=== PATIENT | male | born 1975 | race Caucasian/White ===

== ENCOUNTER 2017-06-30 09:04 | Observation (INO) | payer SELFPAY ==
[~2017-06-30] VITALS: Ht 185.4 cm; Wt 137.6 kg
[~2017-06-30 09:04] MED LIST: GLC/500 PO
[2017-06-30] MEDS ORDERED: ONDANSETRON INJ 2 MG/ML 2 ML VIAL IV STA (09:35)
[2017-06-30] MEDS ORDERED: MoRPHine SULFATE 4 MG/ML 1 ML CARP\\VIAL IV STA (09:35)
[2017-06-30] MEDS ORDERED: SODIUM CHLORIDE 0.9% 1000ML 1,000 ML IV STA ×2 (09:35)
[2017-06-30 09:50] LABS: URINE APPEARANCE CLEAR (CLEAR); URINE BILIRUBIN NEG (NEG); URINE COLOR YELLOW; URINE NITRITE NEG (NEG); URINE PH 5.5 (4.5-7.5); URINE SPECIFIC GRAVITY 1.034 (1.000-1.030); UROBILINOGEN NEG (NEG); ZZUR CULT IF INDIC CLEAN CATCH NO
[2017-06-30 09:53] LABS: MANUAL MICROSCOPIC REQUIRED? NO; REVIEW REQ? NO
[2017-06-30] MEDS ORDERED: PANTOprazole INJ 80 MG in DEXTROSE 5% 100ML IV SCH (10:00)
--- NOTE | 2017-06-30 10:04 | DIAGNOSTIC IMAGING REPORT ---
CHEST ONE VIEW PORTABLE CLINICAL HISTORY: abdominal pain COMPARISON STUDY: 08/18/2015 FINDINGS: The cardiac and mediastinal contours are normal. There is no evidence of focal pulmonary consolidation. There is no evidence of failure. No pleural effusions are visualized.[ No free intraperitoneal air is visualized. IMPRESSION: No active disease in the chest. Electronically signed by: Ta Mary M.D. 06/30/2017 10:03 AM Dictated Date/Time: 06/30/2017 10:02 AM
[2017-06-30 10:05] LABS: BASO % 0.7 %; BASO ABS # 0.06 K/uL (0-0.2); COMPLETE YES; EOS % 2.9 %; HEMATOCRIT 42.4 % (42-52); IG% 0.4 %; LYMPH % 23.1 %; LYMPH ABS # 2.09 K/uL (1.2-3.4); MEAN CELL VOLUME 88.1 fL (80-100); MEAN CORPUSCULAR HEMOGLOBIN 31.8 pg (25-34); MEAN CORPUSCULAR HGB CONC 36.1 g/dl (32-36); MEAN PLATELET VOLUME 9.4 fL (7.4-10.4); MONO % 10.3 %; NEUT % 62.6 %; PLATELET COUNT 312 K/uL (130-400); RED BLOOD COUNT 4.81 M/uL (4.7-6.1); WHITE BLOOD COUNT 9.05 K/uL (4.8-10.8)
[2017-06-30 10:13] LABS: PROTHROMBIN TIME (PATIENT) 10.7 SECONDS (9.0-12.0)
[2017-06-30] MEDS ORDERED: PANTOprazole INJ 40 MG in DEXTROSE 5% 100ML IV SCH (10:15)
[2017-06-30 10:34] LABS: ALB/GLOB RATIO 0.9 (0.9-2); BUN/CREATININE RATIO 18.9 (10-20); CALCIUM 9.3 mg/dl (8.5-10.1); CREATININE 0.81 mg/dl (0.60-1.40)
--- NOTE | 2017-06-30 10:35 | EMERGENCY ROOM VISIT NOTE ---
History First contact with patient: 09:14 Chief Complaint: VOMITING Stated Complaint: LETHARGIC, NAUSEA, VOMITING Nursing Triage Summary: Pt states that he feels that his whole body hurts and has been throwing up blood at times. Nauseated. This has been going on for a few months. Pt also states that he feels that he can not see that well. Hx of diabetes. History of Present Illness The patient is a 41 year old male who presents to the Emergency Room with complaints of abdominal pain, nausea, vomiting and diarrhea. The patient states that he has had trouble with rectal bleeding, vomiting, diarrhea and abdominal pain for the last several months. He states that it is much worse today. He states that he had an episode of hematemesis this morning. He states that he is also having diarrhea that is bloody. He reports diffuse abdominal pain and rates his discomfort 10/10. The patient has not been evaluated for this. He has not had a colonoscopy. He does have a family member with Crohn's disease. He denies any fevers. He denies any pain in his chest or trouble breathing. He denies any urinary symptoms. He is a diabetic. The patient also admits to very heavy alcohol use. He states he drinks daily. Review of Systems A 10 system review of systems was completed with positives and pertinent negatives listed in the HPI. Past Medical/Surgical History Medical Problems: (1) Diabetes (2) Rectal bleed Family History Patient reports no known family medical history. Social History Smoking Status: Never Smoker Drug Use: cocaine, other Marital Status: Housing Status: lives with family Occupation Status: employed Current/Historical Medications Scheduled Lisinopril (Prinivil), 5 MG PO DAILY Metformin Hcl (Glucophage), 1,000 MG PO BID Physical Exam Vital Signs Date Time Temp Pulse Resp B/P (MAP) Pulse Ox O2 Delivery O2 Flow Rate FiO2 06/30/17 15:15 77 18 136/87 98 Room Air 06/30/17 13:15 71 18 127/82 98 Room Air 06/30/17 11:52 86 20 157/99 98 Room Air 06/30/17 10:20 88 22 162/105 97 Room Air 06/30/17 09:11 36.9 93 22 168/107 97 Physical Exam VITALS: Vitals are noted on the nurse's note and reviewed by myself. Vital signs stable. The patient is afebrile. He is not hypotensive. GENERAL: This is a 41-year-old male, in no acute distress, nondiaphoretic, well- developed well-nourished. SKIN: The skin was without rashes, erythema, edema, or bruising. There is no tenting of the skin. Capillary reflex less than 2 seconds. HEAD: Normocephalic atraumatic. EARS: The external ears are normal in appearance. EYES: Pupils equal round and reactive to light and accommodation. Conjunctivae without injection, sclerae without icterus. Extraocular movements intact. NOSE: Patent, turbinates without inflammation or discharge. MOUTH: Mucous membranes moist. Tonsils are not enlarged. Pharynx without erythema or exudate. Uvula midline. Airway patent. Tongue does not deviate. NECK: Supple without nuchal rigidity. No lymphadenopathy. No thyromegaly. Cervical spine is nontender. No JVD. HEART: Regular rate and rhythm without murmurs gallops or rubs. LUNGS: Clear to auscultation bilaterally without wheezes, rales or rhonchi. No retractions or accessory muscle use. ABDOMEN: Positive bowel sounds x 4. Soft, moderate diffuse tenderness masses or organomegaly. RECTAL: There are no external hemorrhoids. The stool is brown but guaiac positive. MUSCULOSKELETAL: No muscle atrophy, erythema, or edema noted. Full range of motion in all extremities. Normal gait. Strength 5/5 throughout. NEURO: Patient was alert and oriented to person place and time. No focal neurological deficits. Medical Decision & Procedures ER Provider Diagnostic Interpretation: [~ rep ct add3]] CT SCAN OF THE ABDOMEN AND PELVIS WITH IV CONTRAST CLINICAL HISTORY: Generalized abdominal pain. Nausea and vomiting. Rectal bleeding. COMPARISON STUDY: Abdominal CT dated 09/16/2014. TECHNIQUE: Following the IV administration of 94 cc of Optiray 320, CT scan of the abdomen and pelvis is performed from the lung bases to the proximal femora. Images are reviewed in the axial, sagittal, and coronal planes. IV contrast was administered without complication. A dose lowering technique was utilized adhering to the principles of ALARA. CT DOSE: 1139.59 mGycm FINDINGS: Lung bases: The heart is top normal in size and without pericardial effusion. A fat-containing Bochdalek hernia is present at the left lung base. The lung bases are otherwise clear. There is a small hiatal hernia. Liver: The contrast-enhanced liver is enlarged, measuring 26.5 cm in length. The liver demonstrates diffusely diminished attenuation consistent with hepatic steatosis. There is no intrahepatic biliary ductal dilatation. The hepatic veins and portal veins are patent. Gallbladder: Surgically absent noting clips in the gallbladder fossa. Spleen: Normal in size and attenuation. Pancreas: Unremarkable. Adrenal glands: Unremarkable. Kidneys: The contrast enhanced kidneys are normal in size and without hydronephrosis. The kidneys enhance symmetrically. Abdominal vasculature: The abdominal aorta is normal in course and caliber. Bowel: The small bowel and colon are normal in course and caliber. The appendix is well-visualized and normal. Peritoneum: There is no intraperitoneal free air or abdominal ascites. There is a small fat-containing umbilical hernia. Lymphadenopathy: None. Pelvic viscera: The bladder, prostate, and seminal vesicles are normal as visualized. Skeletal structures: No lytic or blastic lesions are seen. IMPRESSION: 1. There are no acute infectious or inflammatory findings in the abdomen or pelvis. 2. Hepatomegaly and severe hepatic steatosis. CHEST ONE VIEW PORTABLE CLINICAL HISTORY: abdominal pain COMPARISON STUDY: 08/18/2015 FINDINGS: The cardiac and mediastinal contours are normal. There is no evidence of focal pulmonary consolidation. There is no evidence of failure. No pleural effusions are visualized.[ No free intraperitoneal air is visualized. IMPRESSION: No active disease in the chest. Laboratory Results 06/30/17 09:50 Red Blood Count 4.81, Mean Corpuscular Volume 88.1, Mean Corpuscular Hemoglobin 31.8, Mean Corpuscular Hemoglobin Concent 36.1, Mean Platelet Volume 9.4, Neutrophils (%) (Auto) 62.6, Lymphocytes (%) (Auto) 23.1, Monocytes (%) (Auto) 10.3, Eosinophils (%) (Auto) 2.9, Basophils (%) (Auto) 0.7, Neutrophils # (Auto ) 5.67, Lymphocytes # (Auto) 2.09, Monocytes # (Auto) 0.93, Eosinophils # (Auto ) 0.26, Basophils # (Auto) 0.06 06/30/17 09:50 Test 06/30/17 09:24 06/30/17 09:30 06/30/17 09:50 06/30/17 15:18 Bedside Glucose 295 mg/dl (70-99) Urine Color YELLOW Urine Appearance CLEAR (CLEAR) Urine pH 5.5 (4.5-7.5) Urine Specific [place] 1.034 (1.000-1.030) Urine Protein NEG (NEG) Urine Glucose (UA) 3+ (NEG) Urine Ketones NEG (NEG) Urine Occult Blood NEG (NEG) Urine Nitrite NEG (NEG) Urine Bilirubin NEG (NEG) Urine Urobilinogen NEG (NEG) Urine Leukocyte Esterase NEG (NEG) White Blood Count 9.05 K/uL (4.8-10.8) Red Blood Count 4.81 M/uL (4.7-6.1) Hemoglobin 15.3 g/dL (14.0-18.0) Hematocrit 42.4 % (42-52) Mean Corpuscular Volume 88.1 fL (80-100) Mean Corpuscular Hemoglobin 31.8 pg (25-34) Mean Corpuscular Hemoglobin Concent 36.1 g/dl (32-36) Platelet Count 312 K/uL (130-400) Mean Platelet Volume 9.4 fL (7.4-10.4) Neutrophils (%) (Auto) 62.6 % Lymphocytes (%) (Auto) 23.1 % Monocytes (%) (Auto) 10.3 % Eosinophils (%) (Auto) 2.9 % Basophils (%) (Auto) 0.7 % Neutrophils # (Auto) 5.67 K/uL (1.4-6.5) Lymphocytes # (Auto) 2.09 K/uL (1.2-3.4) Monocytes # (Auto) 0.93 K/uL (0.11-0.59) Eosinophils # (Auto) 0.26 K/uL (0-0.5) Basophils # (Auto) 0.06 K/uL (0-0.2) RDW Standard Deviation 39.0 fL (36.4-46.3) RDW Coefficient of Variation 12.2 % (11.5-14.5) Immature Granulocyte % (Auto) 0.4 % Immature Granulocyte # (Auto) 0.04 K/uL (0.00-0.02) Prothrombin Time 10.7 SECONDS (9.0-12.0) Prothromb Time International Ratio 1.0 (0.9-1.1) Activated Partial Thromboplast Time 26.3 SECONDS (21.0-31.0) Partial Thromboplastin Ratio 1.0 Anion Gap 10.0 mmol/L (3-11) Est Creatinine Clear Calc Drug Dose 168.2 ml/min Estimated GFR () 126.2 Estimated GFR (Non- 108.9 BUN/Creatinine Ratio 18.9 (10-20) Lactic Acid Level 2.0 mmol/L (0.4-2.0) Calcium Level 9.3 mg/dl (8.5-10.1) Total Bilirubin 0.4 mg/dl (0.2-1) Aspartate Amino Transf (AST/SGOT) 79 U/L (15-37) Alanine Aminotransferase (ALT/SGPT) 137 U/L (12-78) Alkaline Phosphatase 124 U/L (45-117) Total Protein 7.5 gm/dl (6.4-8.2) Albumin 3.6 gm/dl (3.4-5.0) Globulin 3.9 gm/dl (2.5-4.0) Albumin/Globulin Ratio 0.9 (0.9-2) Chemistry Specimen Hemolysis Medications Administered Medications (Trade) Dose Ordered Sig/Carine Route Start Time Stop Time Status Last Admin Dose Admin Sodium Chloride 1,000 ml @ 999 mls/hr Q1H1M STAT IV 06/30/17 09:35 06/30/17 10:35 DC 06/30/17 10:07 999 MLS/HR Morphine Sulfate (MoRPHine SULFATE INJ) 4 mg NOW STAT IV 06/30/17 09:35 06/30/17 09:39 DC 06/30/17 10:08 4 MG Sodium Chloride 1,000 ml @ 999 mls/hr Q1H1M STAT IV 06/30/17 09:35 06/30/17 10:35 DC 06/30/17 10:07 999 MLS/HR Ondansetron HCl (Zofran Inj) 4 mg NOW STAT IV 06/30/17 09:35 06/30/17 09:39 DC 06/30/17 10:04 4 MG Pantoprazole Sodium 80 mg/ Dextrose 120 ml @ 480 mls/hr 1000 IV 06/30/17 10:00 06/30/17 10:14 DC 06/30/17 10:11 480 MLS/HR Pantoprazole Sodium 40 mg/ Dextrose 100 ml @ 20 mls/hr Q5H IV 06/30/17 10:15 06/30/17 15:14 DC 06/30/17 10:11 20 MLS/HR Hydromorphone HCl (Dilaudid Inj) 1 mg NOW STAT IV 06/30/17 10:41 06/30/17 10:42 DC 06/30/17 10:59 1 MG Ondansetron HCl (Zofran Inj) 4 mg STK-MED ONCE .ROUTE 06/30/17 12:24 06/30/17 12:25 DC 06/30/17 12:29 4 MG Procedure The patient was monitored on a clinical research monitor. They maintained a normal sinus rhythm without ectopy. ED Course The patient was seen and examined. Previous visits were reviewed. The patient does not have a fever or leukocytosis. He is not anemic. He does not have any significant electrolyte abnormalities. Lactic acid is not elevated. Glucose is elevated at 295. He does have a history of diabetes. His transaminases are elevated. AST is 79, ALT 137 and alkaline phosphatase 124. INR is 1.0. Urinalysis reveals glucosuria. CT scan of the abdomen and pelvis is as above. The patient has hepatomegaly and severe hepatic steatosis The patient was given 4 mg IV morphine and 4 mg IV Zofran with no improvement in his pain He was then given 1 mg IV Dilaudid with improvement in his symptoms He was given Protonix bolus and drip The patient was seen and examined. Previous visits were reviewed. The patient is hemodynamically stable. The patient reports a episode of hematemesis this morning. He had one episode of bloody stool while in the emergency department. He did have guaiac positive stool on rectal examination. The patient also has severe upper abdominal pain, particularly left upper quadrant. The patient admits to drinking alcohol heavily. He does have hepatic steatosis and hepatomegaly as well as elevation in his liver enzymes. Given the patient's severe and persistent pain despite multiple doses of IV narcotics, GI bleeding, the patient would benefit from further evaluation and management in the hospital. The case was discussed with the [facility] hospitalist service and they will evaluate the patient. Medical Decision DIFFERENTIAL DIAGNOSIS: Hepatitis, cholecystitis, cholangitis, biliary colic, pancreatitis, pneumonia, subdiaphragmatic abscess, appendicitis, inguinal hernia , nephrolithiasis, inflammatory bowel disease, mesenteric adenitis, peptic ulcer disease, GERD, gastritis, pancreatitis, myocardial infarction, pericarditis, ruptured aortic aneurysm, appendicitis, gastroenteritis, bowel obstruction, splenic infarct, diverticulitis, mesenteric ischemia, metabolic, peritonitis, among others. Medication Reconcilliation Current Medication List: was personally reviewed by me Blood Pressure Screening Patient's blood pressure: Elevated blood pressure Blood pressure disposition: Elevated BP felt to be situational Impression Primary Impression: GI bleeding Additional Impressions: Upper abdominal pain Hepatic steatosis Hepatomegaly Departure Information Dispostion Admitted as an inpatient Referrals Roly Ramires, D.O.Int.Med. (PCP) Patient Instructions [facility] Problem Qualifiers
[2017-06-30] MEDS ORDERED: HYDROmorphone INJ 1 MG/ML SYR IV STA (10:41)
[2017-06-30] MEDS ORDERED: OPTIRAY 320 IV PRN (11:30)
[2017-06-30] MEDS ORDERED: LISI5TAB PO (11:44)
[2017-06-30] MEDS ORDERED: GLC/500 PO (11:46)
[2017-06-30] MEDS ORDERED: ONDANSETRON INJ 2 MG/ML 2 ML VIAL ONE (12:24)
--- NOTE | 2017-06-30 12:53 | DIAGNOSTIC IMAGING REPORT ---
CT SCAN OF THE ABDOMEN AND PELVIS WITH IV CONTRAST CLINICAL HISTORY: Generalized abdominal pain. Nausea and vomiting. Rectal bleeding. COMPARISON STUDY: Abdominal CT dated 09/16/2014. TECHNIQUE: Following the IV administration of 94 cc of Optiray 320, CT scan of the abdomen and pelvis is performed from the lung bases to the proximal femora. Images are reviewed in the axial, sagittal, and coronal planes. IV contrast was administered without complication. A dose lowering technique was utilized adhering to the principles of ALARA. CT DOSE: 1139.59 mGycm FINDINGS: Lung bases: The heart is top normal in size and without pericardial effusion. A fat-containing Bochdalek hernia is present at the left lung base. The lung bases are otherwise clear. There is a small hiatal hernia. Liver: The contrast-enhanced liver is enlarged, measuring 26.5 cm in length. The liver demonstrates diffusely diminished attenuation consistent with hepatic steatosis. There is no intrahepatic biliary ductal dilatation. The hepatic veins and portal veins are patent. Gallbladder: Surgically absent noting clips in the gallbladder fossa. Spleen: Normal in size and attenuation. Pancreas: Unremarkable. Adrenal glands: Unremarkable. Kidneys: The contrast enhanced kidneys are normal in size and without hydronephrosis. The kidneys enhance symmetrically. Abdominal vasculature: The abdominal aorta is normal in course and caliber. Bowel: The small bowel and colon are normal in course and caliber. The appendix is well-visualized and normal. Peritoneum: There is no intraperitoneal free air or abdominal ascites. There is a small fat-containing umbilical hernia. Lymphadenopathy: None. Pelvic viscera: The bladder, prostate, and seminal vesicles are normal as visualized. Skeletal structures: No lytic or blastic lesions are seen. IMPRESSION: 1. There are no acute infectious or inflammatory findings in the abdomen or pelvis. 2. Hepatomegaly and severe hepatic steatosis. Electronically signed by: Virgil Ortega M.D. 06/30/2017 12:52 PM Dictated Date/Time: 06/30/2017 12:48 PM
[2017-06-30] MEDS ORDERED: GLUCOSE 40% GEL 15 GM TUBE PO PRN (15:30)
[2017-06-30] MEDS ORDERED: GLUCOSE 10 TABS/TUBE PO PRN (15:30)
[2017-06-30] MEDS ORDERED: DEXTROSE 50% 50 ML SYR IV PRN (15:30)
[2017-06-30] MEDS ORDERED: ALUMINUM/MAGNESIUM/SIMETH (MAALOX MAX) 30 ML UDC PO PRN (15:30)
[2017-06-30] MEDS ORDERED: LORAZEPAM 2 MG/ML 1 ML VIAL IV PRN (15:30)
[2017-06-30] MEDS ORDERED: POLYETHYLENE (MIRALAX) 17 GM PACK PO PRN (15:30)
[2017-06-30] MEDS ORDERED: ONDANSETRON INJ 2 MG/ML 2 ML VIAL IV PRN (15:30)
[2017-06-30] MEDS ORDERED: MAGNESIUM HYDROXIDE SUSP 30 ML UDC PO PRN (15:30)
[2017-06-30] MEDS ORDERED: GLUCAGON FOR INJ 1 MG VIAL SQ PRN (15:30)
--- NOTE | 2017-06-30 15:53 | History and Physical ---
History & Physical Date & Time of Service: Jun 30, 2017 at 15:36 Chief Complaint: Lethargic, Nausea, Vomiting Primary Care Physician: Wyatt Ramires D.O.Int.Med. History of Present Illness Source: patient, clinic records, hospital records This is a 41 y/o male with a history of HTN, DM II and anxiety who presented to the ED on 06/30 with abdominal pain, nausea, vomiting, and rectal bleeding. The patient states that these symptoms have actually been going on for several months, but today the abdominal pain become very severe. He had originally complained of a diffuse abdominal pain, but currently he states that it is mostly in the LUQ. He describes it as a dull 7/10 pain at rest but becomes a sharp 10/10 pain with movement or palpation. His nausea is now resolved, although he has been having hematemesis for the last few weeks. This typically occurs in the morning. He has also had gross rectal bleeding for the last few months, again typically in the morning, although today it has persisted all day long. He complains of weakness and fatigue. He also notes a 20 pound weight loss over the last 4 months that is unintentional, although he has not been eating as much lately. The patient denies fevers, chills, sweats, chest pain, palpitations, claudication, cough, wheezing, shortness of breath, dysuria, hematuria, urinary retention, paralysis, motor weakness, numbness and tingling. Past Medical/Surgical History Medical Problems: (1) Diabetes mellitus type 2 Status: Chronic HTN Anxiety Family History Colon cancer Crohn's disease Diabetes mellitus Thyroid cancer Social History Smoking Status: Never Smoker Smokeless Tobacco Use: No Alcohol Use: heavy (3 pitches of beer and several shots of liquor a day) Drug Use: cocaine (quit 6 months ago) Marital Status: in relationship Housing status: lives with significant other Occupational Status: employed Immunizations History of Influenza Vaccine: No History of Tetanus Vaccine?: Yes History of Pneumococcal: No History of Hepatitis B Vaccine: Unknown Multi-Drug Resistant Organisms History of MDRO: No Allergies Coded Allergies: Penicillins (Verified Allergy, Intermediate, RASH, 06/30/17) Home Medications Scheduled Lisinopril (Prinivil), 5 MG PO DAILY Metformin Hcl (Glucophage), 1,000 MG PO BID Review of Systems Constitutional: + weight loss, + weakness, + fatigue, No fever, No chills, No sweats Eyes: + worsening of vision (blurry vision today), No eye pain, No diplopia ENT: No hearing loss, No sore throat, No trouble swallowing Respiratory: No cough, No wheezing, No shortness of breath Cardiovascular: No chest pain, No claudication Abdomen: + pain, + nausea, + vomiting, + GI bleeding, No diarrhea Musculoskeletal: No joint pain, No muscle pain, No calf pain Genitourinary - Male: No hematuria, No dysuria, No urinary retention Neurologic: No paralysis, No weakness, No numbness/tingling Integumentary: No rash, No itch, No color change Physical Exam Vital Signs Date Time Temp Pulse Resp B/P (MAP) Pulse Ox O2 Delivery O2 Flow Rate FiO2 06/30/17 15:15 77 18 136/87 98 Room Air 06/30/17 13:15 71 18 127/82 98 Room Air 06/30/17 11:52 86 20 157/99 98 Room Air 06/30/17 10:20 88 22 162/105 97 Room Air 06/30/17 09:11 36.9 93 22 168/107 97 General appearance: +Obese. Well-developed, well-nourished, no apparent distress Head: Normocephalic, atraumatic Eyes: Normal inspection, PERRL, EOMI ENT: Normal ENT inspection, hearing grossly normal, pharynx normal Neck: Supple, no JVD, trachea midline Respiratory/Chest: Lungs clear to auscultation, normal breath sounds, no respiratory distress Cardiovascular: Regular rate & rhythm, no gallop, no murmur Abdomen/GI: +LUQ and LLQ TTP. Normal bowel sounds, soft Extremities/Musculoskeletal: Normal inspection, no calf tenderness, no pedal edema Neurological/Psych: Alert, normal mood/affect, oriented x 3 Skin: Normal color, warm/dry, no rash Diagnostics Laboratory Results Results Past 24 Hours Test 06/30/17 09:24 06/30/17 09:30 06/30/17 09:50 Range/Units Bedside Glucose 295 70-99 mg/dl Urine Color YELLOW Urine Appearance CLEAR CLEAR Urine pH 5.5 4.5-7.5 Urine Specific Broadus 1.034 1.000-1.030 Urine Protein NEG NEG Urine Glucose (UA) 3+ NEG Urine Ketones NEG NEG Urine Occult Blood NEG NEG Urine Nitrite NEG NEG Urine Bilirubin NEG NEG Urine Urobilinogen NEG NEG Urine Leukocyte Esterase NEG NEG White Blood Count 9.05 4.8-10.8 K/uL Red Blood Count 4.81 4.7-6.1 M/uL Hemoglobin 15.3 14.0-18.0 g/dL Hematocrit 42.4 42-52 % Mean Corpuscular Volume 88.1 80-100 fL Mean Corpuscular Hemoglobin 31.8 25-34 pg Mean Corpuscular Hemoglobin Concent 36.1 32-36 g/dl Platelet Count 312 130-400 K/uL Mean Platelet Volume 9.4 7.4-10.4 fL Neutrophils (%) (Auto) 62.6 % Lymphocytes (%) (Auto) 23.1 % Monocytes (%) (Auto) 10.3 % Eosinophils (%) (Auto) 2.9 % Basophils (%) (Auto) 0.7 % Neutrophils # (Auto) 5.67 1.4-6.5 K/uL Lymphocytes # (Auto) 2.09 1.2-3.4 K/uL Monocytes # (Auto) 0.93 0.11-0.59 K/uL Eosinophils # (Auto) 0.26 0-0.5 K/uL Basophils # (Auto) 0.06 0-0.2 K/uL RDW Standard Deviation 39.0 36.4-46.3 fL RDW Coefficient of Variation 12.2 11.5-14.5 % Immature Granulocyte % (Auto) 0.4 % Immature Granulocyte # (Auto) 0.04 0.00-0.02 K/uL Prothrombin Time 10.7 9.0-12.0 SECONDS Prothromb Time International Ratio 1.0 0.9-1.1 Activated Partial Thromboplast Time 26.3 21.0-31.0 SECONDS Partial Thromboplastin Ratio 1.0 Sodium Level 135 136-145 mmol/L Potassium Level 4.0 3.5-5.1 mmol/L Chloride Level 100 98-107 mmol/L Carbon Dioxide Level 25 21-32 mmol/L Anion Gap 10.0 3-11 mmol/L Blood Urea Nitrogen 15 7-18 mg/dl Creatinine 0.81 0.60-1.40 mg/dl Est Creatinine Clear Calc Drug Dose 168.2 ml/min Estimated GFR () 126.2 Estimated GFR (Non- 108.9 BUN/Creatinine Ratio 18.9 10-20 Random Glucose 295 70-99 mg/dl Lactic Acid Level 2.0 0.4-2.0 mmol/L Calcium Level 9.3 8.5-10.1 mg/dl Total Bilirubin 0.4 0.2-1 mg/dl Aspartate Amino Transf (AST/SGOT) 79 15-37 U/L Alanine Aminotransferase (ALT/SGPT) 137 12-78 U/L Alkaline Phosphatase 124 45-117 U/L Total Protein 7.5 6.4-8.2 gm/dl Albumin 3.6 3.4-5.0 gm/dl Globulin 3.9 2.5-4.0 gm/dl Albumin/Globulin Ratio 0.9 0.9-2 Chemistry Specimen Hemolysis Diagnostic Radiology Reviewed the following studies and agree with interpretation as follows: Patient Name: AMADA JACOBSEN Unit Number: [id number] Dictated: 06/30/171247 Transcribed: 06/30/171247 EV Printed Date/Time: [~ rep prt dt]/[~ rep prt tm] [~ rep ct labl] - [~ rep ct ivnm] [facility] [place] [address] Dictated: 06/30/171247 Transcribed: 06/30/171247 EV Printed Date/Time: [~ rep prt dt]/[~ rep prt tm] [~ rep ct labl] - [~ rep ct ivnm] Patient: AMADA JACOBSEN Address1: [address] [place] [address] Rec: [id number] Address2: Acct ID: [id number] [facility] Zip: [place] [address] Date: 1975 Sex: M Room/Bed: Ref Phy: Wyatt Ramires D.ORocioInt.Med. SC: GURJIT Hodgson Phy: Report #: [id number] Donna Phy: Wyatt Ramires D.O.Int.Med. Test: APW Admit Phy: Eye Technician: KENZIE Interpreting Phy: Virgil Ortega M.D. Diagnosis: LETHARGIC, NAUSEA, VOMITING Ordering Phy: Mony Reyes PA-C Service Date: 06/30/17 Admit Date: 06/30/17 MNE: PWRSCRIBE CONF: DICTATED BY: Virgil Ortega M.D.]] CC: Gino Cox, Wyatt John D.ORocioInt.Med. Mony Reyes PA-C Endcc: [~ rep ct add3]] CT SCAN OF THE ABDOMEN AND PELVIS WITH IV CONTRAST CLINICAL HISTORY: Generalized abdominal pain. Nausea and vomiting. Rectal bleeding. COMPARISON STUDY: Abdominal CT dated 09/16/2014. TECHNIQUE: Following the IV administration of 94 cc of Optiray 320, CT scan of the abdomen and pelvis is performed from the lung bases to the proximal femora. Images are reviewed in the axial, sagittal, and coronal planes. IV contrast was administered without complication. A dose lowering technique was utilized adhering to the principles of ALARA. CT DOSE: 1139.59 mGycm FINDINGS: Lung bases: The heart is top normal in size and without pericardial effusion. A fat-containing Bochdalek hernia is present at the left lung base. The lung bases are otherwise clear. There is a small hiatal hernia. Liver: The contrast-enhanced liver is enlarged, measuring 26.5 cm in length. The liver demonstrates diffusely diminished attenuation consistent with hepatic steatosis. There is no intrahepatic biliary ductal dilatation. The hepatic veins and portal veins are patent. Gallbladder: Surgically absent noting clips in the gallbladder fossa. Spleen: Normal in size and attenuation. Pancreas: Unremarkable. Adrenal glands: Unremarkable. Kidneys: The contrast enhanced kidneys are normal in size and without hydronephrosis. The kidneys enhance symmetrically. Abdominal vasculature: The abdominal aorta is normal in course and caliber. Bowel: The small bowel and colon are normal in course and caliber. The appendix is well-visualized and normal. Peritoneum: There is no intraperitoneal free air or abdominal ascites. There is a small fat-containing umbilical hernia. Lymphadenopathy: None. Pelvic viscera: The bladder, prostate, and seminal vesicles are normal as visualized. Skeletal structures: No lytic or blastic lesions are seen. IMPRESSION: 1. There are no acute infectious or inflammatory findings in the abdomen or pelvis. 2. Hepatomegaly and severe hepatic steatosis. Electronically signed by: Virgil Ortega M.D. 06/30/2017 12:52 PM Dictated Date/Time: 06/30/2017 12:48 PM The status of this report is Signed. Draft = Not yet reviewed or approved by Radiologist. Signed = Reviewed and approved by Radiologist. <AttendingPhy></AttendingPhy> <FamilyPhy>Wyatt Ramires D.O.Int.Med.</ FamilyPhy> <PrimaryPhy>Wyatt Ramires D.O.Int.Med.</PrimaryPhy> <UnitNumber> [id number]</UnitNumber> <VisitNumber>[id number]</VisitNumber> <PatientName> SUE JACOBSENIFFTAISHA SCHNEIDER</PatientName> <DateOfBirth>1975</DateOfBirth> < Location>[facility]</Location> <ServiceDate>06/30/17</ServiceDate> <MNE>ESINDI</MNE> <OrderingPhy>Mony Reyes PA-C</OrderingPhy> <OrderingPhyMNE>f rep ord dr medina</OrderingPhyMNE> <DictatingPhyMNE>f rep dict dr medina</DictatingPhyMNE> < CCListMNE>f rep ct mne</CCListMNE> <AdmittingPhyMNE>f pt admit dr medina</ AdmittingPhyMNE> <AttendingPhyMNE>f pt attend dr medina</AttendingPhyMNE> <ConsultingPhyMNE>f pt consult dr medina</ConsultingPhyMNE> <FamilyPhyMNE>f pt fam dr medina</FamilyPhyMNE> <OtherPhyMNE>f pt other dr medina</OtherPhyMNE> < PrimaryPhyMNE>f pt prim care dr medina</PrimaryPhyMNE> <ReferringPhyMNE>f pt referring dr medina</ReferringPhyMNE> Patient Name: AMADA JACOBSEN Unit Number: [id number] Dictated: 06/30/17 1002 Transcribed: 06/30/17 1002 ARG Printed Date/Time: [~ rep prt dt]/[~ rep prt tm] [~ rep ct labl] - [~ rep ct ivnm] [facility] [place] [address] Dictated: 06/30/17 1002 Transcribed: 06/30/17 1002 ARG Printed Date/Time: [~ rep prt dt]/[~ rep prt tm] [~ rep ct labl] - [~ rep ct ivnm] Patient: AMADA JACOBSEN Address1: [address] [place] [address] Rec: [id number] Address2: Acct ID: [id number] [facility] Zip: [place] [address] Date: 1975 Sex: M Room/Bed: Ref Phy: Wyatt Ramires D.O.Int.Med. SC: GURJIT Hodgsno Phy: Report #: [id number] Donna Phy: Wyatt Ramires D.O.Int.Med. Test: CXR1P Admit Phy: Eye Technician: AMINTA Interpreting Phy: Ta Mary M.D. Diagnosis: LETHARGIC, NAUSEA, VOMITING Ordering Phy: Mony Reyes PA-C Service Date: 06/30/17 Admit Date: 06/30/17 MNE: PWRSCRIBE CONF: DICTATED BY: Ta Mary M.D.]] CC: Gino Cox, Wyatt John D.O.Int.MedMony Fernandez PA-C Endcc: [~ rep ct add3]] CHEST ONE VIEW PORTABLE CLINICAL HISTORY: abdominal pain COMPARISON STUDY: 08/18/2015 FINDINGS: The cardiac and mediastinal contours are normal. There is no evidence of focal pulmonary consolidation. There is no evidence of failure. No pleural effusions are visualized.[ No free intraperitoneal air is visualized. IMPRESSION: No active disease in the chest. Electronically signed by: Ta Mary M.D. 06/30/2017 10:03 AM Dictated Date/Time: 06/30/2017 10:02 AM The status of this report is Signed. Draft = Not yet reviewed or approved by Radiologist. Signed = Reviewed and approved by Radiologist. <AttendingPhy></AttendingPhy> <FamilyPhy>Wyatt Ramires D.ORocioInt.Med.</ FamilyPhy> <PrimaryPhy>Wyatt Ramires D.O.Int.Med.</PrimaryPhy> <UnitNumber> [id number]</UnitNumber> <VisitNumber>[id number]</VisitNumber> <PatientName> AMADA JACOBSEN WYATT</PatientName> <DateOfBirth>1975</DateOfBirth> < Location>[facility]</Location> <ServiceDate>06/30/17</ServiceDate> <MNE>ESINDI</MNE> <OrderingPhy>Mony Reyes PA-C</OrderingPhy> <OrderingPhyMNE>f rep ord dr medina</OrderingPhyMNE> <DictatingPhyMNE>f rep dict dr medina</DictatingPhyMNE> < CCListMNE>f rep ct mne</CCListMNE> <AdmittingPhyMNE>f pt admit dr medina</ AdmittingPhyMNE> <AttendingPhyMNE>f pt attend dr medina</AttendingPhyMNE> <ConsultingPhyMNE>f pt consult dr medina</ConsultingPhyMNE> <FamilyPhyMNE>f pt fam dr medina</FamilyPhyMNE> <OtherPhyMNE>f pt other dr medina</OtherPhyMNE> < PrimaryPhyMNE>f pt prim care dr medina</PrimaryPhyMNE> <ReferringPhyMNE>f pt referring dr medina</ReferringPhyMNE> Impression Assessment and Plan 41 y/o male with a history of HTN, DM II and anxiety who presented to the ED on 06/30 with abdominal pain, nausea, vomiting, and rectal bleeding. Pt arrived to ED afebrile, VSS. Labs grossly unremarkable. Hgb 15. Abdominal pain still uncontrolled. Abdomen/pelvis CT shows fatty liver, otherwise unremarkable. CXR no acute disease. Pt given IV pain control, Zofran, Protonix and IVF in ED. GI bleed, uncontrolled abdominal pain -Admit to telemetry for observation -Consult GI, appreciate recs -NPO. Possible colonoscopy and EGD tomorrow due to hematemesis and rectal bleeding -Morphine 4 mg IV q2h prn pain -Zofran 4 mg IV q6h prn nausea -IVF with NSS at 125 cc/hr -Protonix 40 mg IV BID as hgb stable and no severe hemorrhaging Alcoholism -Alcohol withdrawal protocol -Ativan IV prn per protocol -Librium 25 mg PO TID scheduled HTN--stable -Continue lisinopril 5 mg PO qd DM II--last HgbA1c 7.1 in 2014 -Hold metformin -Insulin sliding scale -Check BSGs q ac and qhs -Recheck HgbA1c -Sugars nearly 300 on arrival. Pt will need to f/u with PCP regarding changing home regimen DVT prophylaxis -Hold off chemical prophylaxis due to bleeding -LUAN vidal and SCDs Code Status -Level I, FULL RESUSCITATION STATUS I agree with PA assessment and plan and have seen and examined pt myself VSS Labs reviewed Keep NPO Will like need endoscopy at this time Counseled on alcohol cessation LFTs noted to be elev Alcohol withdrawal protocol in place Level of Care Telemetry Resuscitation Status FULL RESUSCITATION VTE Prophylaxis VTE Risk Assessment Done? Y/N: Yes Risk Level: Moderate Given or contraindicated: T.E.D. Stockings, SCD's
[2017-06-30] MEDS ORDERED: IV FLUIDS COMPLETED PRN (16:30)
[2017-06-30] MEDS: MoRPHine SULFATE 4 MG/ML 1 ML CARP\\VIAL IV PRN ×2 (16:43→21:13)
[2017-06-30] MEDS: SODIUM CHLORIDE 0.9% 1000ML 1,000 ML IV SCH (17:10)
[2017-06-30 17:39] VITALS: BP 147/90; PULSE 72; TEMP 36.4; O2SAT 98
[2017-06-30 17:53] VITALS: BP 147/90; PULSE 72; TEMP 36.4; O2SAT 98; Ht 185.4 cm; Wt 137.6 kg
[2017-06-30] MEDS: INSULIN ASPART 100 UNITS/ML 3 ML PEN SC SCH ×2 (18:25→21:00)
[2017-06-30] MEDS: PANTOprazole INJ 40 MG in SYRINGE 0 ML IV SCH (19:39)
[2017-06-30] MEDS: ACETAMINOPHEN 325 MG TAB PO PRN (19:56)
[2017-06-30] MEDS ORDERED: INFLUENZA ADMINISTRATION CHARGE ONE (20:00)
[2017-06-30] MEDS ORDERED: PNEUMOCOCCAL POLYSACCHARIDES 25 MCG/0.5 ML VIAL/SYR IM. ONE (20:00)
[2017-06-30] MEDS ORDERED: INFLUENZA VIRUS QUAD VACCINE 0.5 ML SYR IM. ONE (20:00)
[2017-06-30] MEDS ORDERED: PNEUMOCOCCAL ADMINISTRATION CHARGE ONE (20:00)
[2017-06-30 20:34] VITALS: BP 131/86; PULSE 67; TEMP 36.3; O2SAT 97
[2017-06-30 20:34] LABS: BENZODIAZEPINE, URINE NEG (NEG); COCAINE,URINE NEG (NEG); PHENCYCLIDINE, URINE NEG (NEG)
[2017-06-30] MEDS: CHLORDIAZEPOXIDE 25 MG CAP PO SCH (21:12)
[2017-07-01] VITALS: BP 117/74; PULSE 74; TEMP 36.7; O2SAT 94
[2017-07-01] MEDS: SODIUM CHLORIDE 0.9% 1000ML 1,000 ML IV SCH ×2 (02:25→09:24)
[2017-07-01 04:00] VITALS: BP 131/89; PULSE 72; TEMP 36.4; O2SAT 94
[2017-07-01 06:11] LABS: ESTIMATED AVERAGE GLUCOSE 197 mg/dl; HA1C FLAG Normal (Normal)
[2017-07-01 06:19] LABS: MEAN CELL VOLUME 89.7 fL (80-100); MEAN CORPUSCULAR HEMOGLOBIN 30.9 pg (25-34); MEAN CORPUSCULAR HGB CONC 34.4 g/dl (32-36); MEAN PLATELET VOLUME 9.4 fL (7.4-10.4); PLATELET COUNT 274 K/uL (130-400); RED BLOOD COUNT 4.57 M/uL (4.7-6.1); WHITE BLOOD COUNT 8.28 K/uL (4.8-10.8)
[2017-07-01 06:51] LABS: BUN/CREATININE RATIO 18.6 (10-20); CREATININE 0.69 mg/dl (0.60-1.40); POTASSIUM 3.8 mmol/L (3.5-5.1)
[2017-07-01] MEDS: INSULIN ASPART 100 UNITS/ML 3 ML PEN SC SCH ×3 (07:00→16:39)
[2017-07-01 07:17] VITALS: BP 164/97; PULSE 81; TEMP 36.7; O2SAT 96
[2017-07-01] MEDS ORDERED: LISINOPRIL 5 MG TAB PO SCH (09:00)
[2017-07-01] MEDS: MoRPHine SULFATE 4 MG/ML 1 ML CARP\\VIAL IV PRN (09:20)
[2017-07-01] MEDS: PANTOprazole INJ 40 MG in SYRINGE 0 ML IV SCH (09:24)
[2017-07-01] MEDS: CHLORDIAZEPOXIDE 25 MG CAP PO SCH ×2 (09:30→16:05)
[2017-07-01 11:24] VITALS: BP 114/72; PULSE 73; TEMP 36.6; O2SAT 93
[2017-07-01] MEDS ORDERED: VLTG EXT (14:30)
[2017-07-01] MEDS ORDERED: MELO7.5T6 PO (14:30)
--- NOTE | 2017-07-01 14:43 | Discharge Instructions ---
Discharge Instructions Date of Service Jul 01, 2017. Admission Reason for Admission: Rectal Bleed,Sudden Onset Of Severe Abd Pain Discharge Discharge Diagnosis / Problem: GI bleeding, abdominal pain (see below) Discharge Goals Goal(s): Diagnostic testing Activity Recommendations Activity Limitations: resume your previous activity . Instructions / Follow-Up Instructions / Follow-Up GI bleeding -fortunately you've shown no serious amount of blood loss, and your vital signs have been totally stable while you've been here -we do still need to work up further the source for bleeding, but since you've not shown anything worrisome, it's totally safe to work this up further as an outpatient -Dr Joseph has informed the office to call you to set up times for an EGD ( upper endoscopy to look at stomach and the top of the small intestine) and colonoscopy (lower scope to evaluate the colon for source of bleeding) abdominal pain -this appears to have been rib muscle (and probably upper abdominal muscle) strain from the force of vomiting -this will likely take a little while to calm down -to get it better faster, we recommend the following: -do stretches, deep breathing, and raising arms up/back to stretch out the area -use the voltaren (diclofenac) gel four times a day across the painful area -- while it may take a day or two to "kick in" it typically helps a lot, and has nearly no whole body side effects -use the meloxicam (mobic) if needed for severe pain - it is an anti- inflammatory so if there's a stomach ulcer that is the source of bleeding it could exacerbate things some, but since there was no serious amount of bleeding it's both unlikely that a stomach ulcer will be the source and unlikely that a few doses of meloxicam will truly impact things in a negative way. that said, to be on the safe side , use it sparingly fatty liver -consider this a "pre-cirrhosis" condition - but fortunately one that your liver should be able to entirely recover from. the main factor driving this is going to be the drinking. in a secondary way, diabetes and cholesterol issues can do this, but the drinking is likely the main driving factor for the diabetes , so it's quite likely that the two go [id number] -with no alcohol whatsoever, it's quite likely this will be "back to normal" or awfully close to normal in ~3-4 months --> we'd recommend follow up liver enzyme labs and a follow up liver imaging test (ultrasound is usually best when just looking at liver for accuracy and no radiation exposure) in about 4 months uncontrolled type 2 diabetes -your A1c was 8.5% -as we discussed, "high sugars clog arteries" and the higher your sugars are, and the longer they run high, the more you're clogging up blood vessels that you can't get back. -because the main alcohol you would drink is beer, and because beer is so loaded with carbohydrates, it's actually quite likely that getting rid of the beer will not only help your liver heal, but is quite likely to make you "less diabetic" -otherwise, with other foods, a useful tool is to check sugars about 2 hours after eating. typically if it is a food that is not going to make your diabetes worse/clog arteries from a high sugar mechanism, etc, then you won't see a sugar reading above ~150; therefore when you eat things that do jump your sugar higher, it will teach you that those foods are causing you problems and driving your diabetes -- and avoiding them can not only protect your blood vessels but also make you "less diabetic" over time. one of the greatest things to see clinically as a family doc is when someone starts to eliminate the simple, starchy, sugary carbs and regresses their diabetes, or even "puts it in remission" -- with all the weight you've previously lost, it sounds like you're well on your way to doing this, so avoiding the beer might be the next big step in that direction! Current Hospital Diet Patient's current hospital diet: Regular Diet Discharge Diet Recommended Diet: Regular Diet (keep working to reduce simple/sugary/starchy carbs to continue to regress your diabetes) Pending Studies Studies pending at discharge: no Laboratory Results Hemoglobin A1c Test 06/30/17 16:36 Range/Units Estimated Average Glucose 197 mg/dl Hemoglobin A1c 8.5 H 4.5-5.6 % Medical Emergencies . Who to Call and When: Medical Emergencies: If at any time you feel your situation is an emergency, please call 911 immediately. . Non-Emergent Contact Non-Emergency issues call your: Primary Care Provider, Coal Weigher . . "Provider Documentation" section prepared by Gino Palacio. . VTE Core Measure Inpt VTE Proph given/why not?: Kurt Parkinson, FAZAL's
[2017-07-01 15:23] VITALS: BP 118/74; TEMP 36.8; O2SAT 94
[2017-07-01] MEDS: ACETAMINOPHEN 325 MG TAB PO PRN (16:05)
--- NOTE | 2017-07-01 16:54 | GASTROINTESTINAL CONSULTATION ---
DATE OF CONSULTATION: 07/01/2017 REFERRING PHYSICIAN: Dr. Palacio. I was asked by Dr. Palacio to consult on this gentleman for evaluation of some GI bleeding and abdominal pain. HISTORY OF PRESENT ILLNESS: The patient is a 41-year-old who has a history of hypertension and diabetes who presented to the Emergency Room because he had a bout of nausea and vomiting, had a little bit of blood in his vomitus. He also describes a long history of occasional red rectal bleeding. This has been going on for a while. He denies any tenesmus. He denies any weight loss. He has not had any increase in his rectal bleeding. He does drink rather regularly and sometimes in excess. It is unclear whether his spell of nausea and vomiting was related to drinking in excess or GI illness. He denies any significant aspirin use. He has lost about 20 pounds; however, he has been trying to lose weight. He has no dysphagia, but he does have a lot of daily heartburn. PAST MEDICAL HISTORY: I reviewed his medical records and past medical history and his past medical history is significant for diabetes, hypertension and some anxiety. FAMILY HISTORY: He has a family history of colon cancer. SOCIAL HISTORY: Significant for daily alcohol use, sometimes excessive. ALLERGIES: HE STATES HE IS ALLERGIC TO PENICILLIN. OUTPATIENT MEDICATIONS: Include Glucophage and Prinivil. REVIEW OF SYSTEMS: As above, otherwise he denies any fever, chills, sweats. He denies any seizure activity. He denies any change in mood. He has had no productive cough. He has had no change in vision or hearing. He denies any joint swelling or pains. He denies any bruising. He denies any pruritus, icterus or jaundice. He has had no dysuria or polyuria. He denies any heat or cold intolerance. He has had no myalgias. PHYSICAL EXAMINATION: GENERAL: Reveals a pleasant gentleman lying comfortably in bed. VITAL SIGNS: Recent temperature of 36.6, pulse of 73, BP of 114/72. SKIN: Anicteric. HEENT: Eyes show anicteric sclerae. Mouth clear of lesions. NECK: Supple. CHEST: Clear. HEART: Regular rate and rhythm. ABDOMEN: Obese but benign. No masses or rebound tenderness. EXTREMITIES: Warm with good distal pulses. No edema. NEUROLOGIC: He is grossly intact. Alert and oriented x3. CT of the abdomen and pelvis revealed hepatic steatosis but otherwise no acute findings. Liver enzymes show an AST of 79, ALT of 137, alk phos of 124, normal bilirubin and his hemoglobin has been stable at 14. IMPRESSION: A 41-year-old gentleman with fatty liver, most likely from being overweight and alcohol abuse. As far as this is concerned, he needs to lose weight and cut back significantly on alcohol use. As far as his occasional rectal bleeding is concerned and his chronic heartburn, I recommend we set him up for outpatient bidirectional endoscopy. This would rule out sinister pathology such as Beckett's esophagus and colon pathology. The rectal bleeding is most likely from outlet bleeding. He is agreeable with this plan. I will arrange for this as an outpatient. Thank you for this consult. He can eat and be discharged. REGIS
[2017-07-01 17:10] VITALS: BP 118/74; PULSE 73; TEMP 36.8; O2SAT 94
--- NOTE | 2017-07-01 17:45 | Discharge Summary ---
Discharge Summary Date of Service Jul 01, 2017. Discharge Summary Admission Date: Jun 30, 2017 at 15:35 Discharge Date: Jul 01, 2017 Discharge Disposition: Home Principal Diagnosis: GI bleeding (stable) fatty liver, uncontrolled DM Immunizations: Have You Had Influenza Vaccine: No History of Tetanus Vaccine?: Yes History of Pneumococcal: No History of Hepatitis B Vaccine: Unknown Procedures: for EGD and colo in near future as outpt, but since so stable, set up for home with this [~ rep ct add3]] CT SCAN OF THE ABDOMEN AND PELVIS WITH IV CONTRAST CLINICAL HISTORY: Generalized abdominal pain. Nausea and vomiting. Rectal bleeding. COMPARISON STUDY: Abdominal CT dated 09/16/2014. TECHNIQUE: Following the IV administration of 94 cc of Optiray 320, CT scan of the abdomen and pelvis is performed from the lung bases to the proximal femora. Images are reviewed in the axial, sagittal, and coronal planes. IV contrast was administered without complication. A dose lowering technique was utilized adhering to the principles of ALARA. CT DOSE: 1139.59 mGycm FINDINGS: Lung bases: The heart is top normal in size and without pericardial effusion. A fat-containing Bochdalek hernia is present at the left lung base. The lung bases are otherwise clear. There is a small hiatal hernia. Liver: The contrast-enhanced liver is enlarged, measuring 26.5 cm in length. The liver demonstrates diffusely diminished attenuation consistent with hepatic steatosis. There is no intrahepatic biliary ductal dilatation. The hepatic veins and portal veins are patent. Gallbladder: Surgically absent noting clips in the gallbladder fossa. Spleen: Normal in size and attenuation. Pancreas: Unremarkable. Adrenal glands: Unremarkable. Kidneys: The contrast enhanced kidneys are normal in size and without hydronephrosis. The kidneys enhance symmetrically. Abdominal vasculature: The abdominal aorta is normal in course and caliber. Bowel: The small bowel and colon are normal in course and caliber. The appendix is well-visualized and normal. Peritoneum: There is no intraperitoneal free air or abdominal ascites. There is a small fat-containing umbilical hernia. Lymphadenopathy: None. Pelvic viscera: The bladder, prostate, and seminal vesicles are normal as visualized. Skeletal structures: No lytic or blastic lesions are seen. IMPRESSION: 1. There are no acute infectious or inflammatory findings in the abdomen or pelvis. 2. Hepatomegaly and severe hepatic steatosis. Electronically signed by: Virgil Ortega M.D. 06/30/2017 12:52 PM Dictated Date/Time: 06/30/2017 12:48 PM Last 24 Hours Test 06/30/17 18:23 06/30/17 19:45 06/30/17 21:08 07/01/17 05:20 Bedside Glucose 195 mg/dl 172 mg/dl Urine Opiates Screen POS Urine Methadone, Qualitative NEG Urine Barbiturates NEG Urine Phencyclidine (PCP) Level NEG Ur Amphetamine/Methamphetamine NEG MDMA (Ecstasy) Screen NEG Urine Benzodiazepines Screen NEG Urine Cocaine Metabolite NEG Urine Marijuana (THC) NEG White Blood Count 8.28 K/uL Red Blood Count 4.57 M/uL Hemoglobin 14.1 g/dL Hematocrit 41.0 % Mean Corpuscular Volume 89.7 fL Mean Corpuscular Hemoglobin 30.9 pg Mean Corpuscular Hemoglobin Concent 34.4 g/dl RDW Standard Deviation 40.0 fL RDW Coefficient of Variation 12.2 % Platelet Count 274 K/uL Mean Platelet Volume 9.4 fL Sodium Level 140 mmol/L Potassium Level 3.8 mmol/L Chloride Level 104 mmol/L Carbon Dioxide Level 30 mmol/L Anion Gap 6.0 mmol/L Blood Urea Nitrogen 13 mg/dl Creatinine 0.69 mg/dl Est Creatinine Clear Calc Drug Dose 201.0 ml/min Estimated GFR () 134.8 Estimated GFR (Non- 116.3 BUN/Creatinine Ratio 18.6 Random Glucose 195 mg/dl Calcium Level 8.0 mg/dl Test 07/01/17 06:37 07/01/17 11:00 07/01/17 16:05 Bedside Glucose 184 mg/dl 215 mg/dl 241 mg/dl CHEST ONE VIEW PORTABLE CLINICAL HISTORY: abdominal pain COMPARISON STUDY: 08/18/2015 FINDINGS: The cardiac and mediastinal contours are normal. There is no evidence of focal pulmonary consolidation. There is no evidence of failure. No pleural effusions are visualized.[ No free intraperitoneal air is visualized. IMPRESSION: No active disease in the chest. Electronically signed by: Ta Mary M.D. 06/30/2017 10:03 AM Dictated Date/Time: 06/30/2017 10:02 AM Consultations: GI Medication Reconciliation New Medications: Diclofenac Sod (Voltaren) 100 Appln/100 Gm Gel 1 GM EXT QID, #100 GM Meloxicam (Mobic) 7.5 Mg Tab 1 TAB PO BID PRN for Pain for 30 Days, #15 TAB 2 Refills Continued Medications: Lisinopril (Prinivil) 5 Mg Tab 5 MG PO DAILY, TAB Metformin Hcl (Glucophage) 500 Mg Tab 1000 MG PO BID, TAB Discharge Exam Physical Exam: General Appearance: no apparent distress Eyes: EOMI ENT: hearing grossly normal Neck: trachea midline Respiratory/Chest: no respiratory distress, no accessory muscle use, + pertinent finding (msk/ost - L sided lower rib cage high tone/tender/decreased ROM - balanced ligamentous tension - improved tissue texture some; OMT directly and reliably reproduced his pain - pt tolerated well) Abdomen / GI: non tender, soft Extremities: normal inspection 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 given upper abdominal pain is actually muscular and he was able to eat well, unlikely UGI source. for EGD as outpt due to risk and EtOH abuse, but most likely colo will have yield on source. -stable for home, EGD and colo as outpt in near future rib pain / rib somatic dysfunction -appears to be pain due to strain from vomiting -OMT as above -voltaren gel QID, stretches discussed -systemic NSAID short term - since will use meloxicam and very short term, doubt harms/problems from any possible (unlikely) UGI source; with liver disease and EtOH abuse safer than APAP or narcotics fatty liver -EtOH > uncontrolled DM with elements of both -notes that he's going to totally stop drinking -CMP and RUQ US in ~ 4 months -discussed given severe EtOH fatty liver, basically amounts to a "pre-cirrhosis " state if no lifestyle changes made uncontrolled DM -A1c 8.5 -stopping beer should help - drank often 3 pitchers at a time - high carb load likely driving sugar. discussed critical role of lifestyle hypocalcemia -?fluid shifting -consider outpt vitamin D level stable for home Total Time Spent: Greater than 30 minutes This includes examination of the patient, discharge planning, medication reconciliation, and communication with other providers. Discharge Instructions Please refer to the electronic Patient Visit Report (Discharge Instructions) for additional information.
[2017-07-02 22:54] LABS: COD UR NEGATIVE NG/ML (CUTOFF=50); HYDROCOD UR NEGATIVE NG/ML (CUTOFF=50); HYDROMOR UR 311 NG/ML (CUTOFF=50); MORPHINE UR 3220 NG/ML (CUTOFF=50); NORHYDROCODONE CONF UR NEGATIVE NG/ML (CUTOFF=50); OXYMORPH UR NEGATIVE NG/ML (CUTOFF=50)
== END 2017-07-01 17:35 | disposition home or self-care (01) ==
LOC: C.EDB 09:05 → C.2T 15:35 → ENRESERV 16:00
PROVIDERS: ADMIT Hospitalist; ATTEND Family Medicine
DX: K92.2 Gastrointestinal hemorrhage, unspecified (principal); R07.81 Pleurodynia; E11.65 Type 2 diabetes mellitus with hyperglycemia; I10 Essential (primary) hypertension; K76.0 Fatty (change of) liver, not elsewhere classified; R16.0 Hepatomegaly, not elsewhere classified; E83.51 Hypocalcemia; F41.9 Anxiety disorder, unspecified; Z79.84 Long term (current) use of oral hypoglycemic drugs; Z79.899 Other long term (current) drug therapy

== ENCOUNTER 2017-07-03 11:48 | Emergency (ER) | payer SELFPAY ==
[~2017-07-03 11:48] MED LIST changes: +LISI5TAB PO; +MELO7.5T6 PO; +VLTG EXT
[2017-07-03 12:00] VITALS: TEMP 37.3
--- NOTE | 2017-07-03 12:27 | EMERGENCY ROOM VISIT NOTE ---
History Report prepared by Fidel: Hernandez Clark Under the Supervision of: Dr. Jean Yi D.O. First contact with patient: 12:17 Chief Complaint: OTHER COMPLAINT Stated Complaint: ANXIETY,DEPRESSION,ALCOHOL WITHDRAWAL History of Present Illness The patient is a 41 year old male who presents to the Emergency Room with complaints of alcohol withdrawal that began 3 days ago. He was treated as and inpatient 3 days ago and was released from the hospital yesterday for hematemesis, hematochezia, abdominal pain, and his diabetes. During his hospital stay, he became slightly agitated and given Librium. He was diagnosed with fatty liver and scheduled to have a colonoscopy/ endoscopy in two weeks. The patient is an alcoholic and states that he drinks 3-4 pitchers and 3-4 shots every single day. When at home, his fiance was worried because he was still agitated and thought he should still be on Librium. The last time he drank alcohol was three days ago. She called his PCP, and his PCP was worried about withdrawal and told her that he needs to "get to the hospital, this can kill you." He is currently anxious with some mild abdominal pain, but complaining of no other symptoms. Source of History: patient Onset: 3 days ago Position: other (global) Symptom Intensity: moderate Quality: other (Alcohol Withdrawal) Timing: constant Associated Symptoms: + abdominal pain, No fevers, No chills, No headache, No diaphoresis, No chest pain, No SOB, No nausea, No vomiting, No back pain, No melena, No hematochezia, No diarrhea, No urinary symptoms Review of Systems See HPI for pertinent positives & negatives. A total of 10 systems reviewed and were otherwise negative. Past Medical & Surgical Medical Problems: (1) Diabetes (2) Rectal bleed Family History Colon cancer Crohn's disease Diabetes mellitus Thyroid cancer Social History Smoking Status: Current Every Day Smoker Smokeless Tobacco Use: No Alcohol Use: heavy Drug Use: cocaine Marital Status: in relationship Housing Status: lives with family Occupation Status: employed Current/Historical Medications Scheduled Chlordiazepoxide (Librium), 10 MG PO QID Diclofenac Sod (Voltaren), 1 GM EXT QID Esomeprazole Magnesium (Nexium), 20 MG PO DAILY Lisinopril (Prinivil), 5 MG PO DAILY Metformin Hcl (Glucophage), 1,000 MG PO BID Scheduled PRN Meloxicam (Mobic), 1 TAB PO BID PRN for Pain Allergies Coded Allergies: Penicillins (Verified Allergy, Intermediate, RASH, 07/03/17) Physical Exam Vital Signs Date Time Temp Pulse Resp B/P (MAP) Pulse Ox O2 Delivery O2 Flow Rate FiO2 07/03/17 13:04 76 20 145/89 96 07/03/17 12:00 37.3 77 20 150/91 95 Room Air Physical Exam GENERAL: Patient is awake, alert, and in no acute distress. Patient is resting comfortably and showing no signs of anxiety EYES: The conjunctivae are clear. The pupils are round and reactive. EARS, NOSE, MOUTH AND THROAT: The nose is without any evidence of any deformity. Mucous membranes are moist tongue is midline NECK: The neck is nontender and supple. RESPIRATORY: Normal respiratory effort is noted there is no evidence of wheezing rhonchi or rales CARDIOVASCULAR: Regular rate and rhythm noted there no murmurs rubs or gallops normal S1 normal S2 GASTROINTESTINAL: The abdomen is soft. Bowel sounds are present in all quadrants. Abdomen is nontender MUSCULOSKELETAL/EXTREMITIES: There is no evidence of gross deformity full range of motion is noted in the hips and shoulders SKIN: There is no obvious evidence of any rash. There are no petechiae, pallor or cyanosis noted. NEUROLOGIC: Patient is awake alert and oriented x3 strength is symmetric patellar reflexes are 2+ bilaterally Medical Decision & Procedures ED Course 1217: The patient was evaluated in room C5. A complete history and physical examination were performed. 1300: Upon reevaluation, the patient is resting. I discussed the results and treatment plan with him. He verbalized agreement of the treatment plan. He was discharged home. Medical Decision Nursing notes reviewed. The patient's previous electronic medical records reviewed. The patient is a 41-year-old male who presented to the emergency department for an evaluation after he was instructed to come to the emergency department by his primary care physician. The patient was recently discharged from our facility. He did have some upper GI bleeding which resolved with conservative methods. He is scheduled to follow-up with the GI doctor. He has a strong alcohol history. The patient was concerned because he was very anxious yesterday that he was going into withdrawal. We called his primary care physician he was told to come to the emergency department. He does not have any overt signs of withdrawal on physical exam but his blood pressure is mildly elevated. I discussed his case with the emergency Department pharmacist and he was started on Librium again for a 5 day course. He was encouraged to follow-up with his primary care physician. He was also encouraged return to emergency apartment immediately if symptoms change worsen or the need arises. Medication Reconcilliation Current Medication List: was personally reviewed by me Blood Pressure Screening Patient's blood pressure: Elevated blood pressure Blood pressure disposition: Elevated BP felt to be situational Impression Primary Impression: Alcohol abuse Scribe Attestation The scribe's documentation has been prepared under my direction and personally reviewed by me in its entirety. I confirm that the note above accurately reflects all work, treatment, procedures, and medical decision making performed by me. Departure Information Dispostion Home / Self-Care Prescriptions Chlordiazepoxide (Librium) 10 Mg Cap 10 MG PO QID, #10 CAP Take QID on day 1 TID on day 2 BID on day 3 once daily on day 4 Prov: Jean Yi, 07/03/17 Referrals Roly Ramires, H[facility] (PCP) Forms HOME CARE DOCUMENTATION FORM, IMPORTANT VISIT INFORMATION, WORK / SCHOOL INSTRUCTIONS Patient Instructions Alcohol Withdrawal - [facility], My [facility] Additional Instructions Follow-up with your family this week as scheduled. Continue all medications as prescribed. Return to the emergency department immediately if symptoms change worsen or the need arises.
[2017-07-03] MEDS ORDERED: CHLO10CA7 PO (12:37)
[2017-07-03] MEDS ORDERED: RANI150T3 PO (12:47)
[2017-07-03] MEDS ORDERED: ESOM20CA PO (12:48)
[2017-07-03 13:04] VITALS: BP 145/89; PULSE 76; O2SAT 96
== END 2017-07-03 13:05 | disposition home or self-care (01) ==
LOC: C.EDB 11:49 → C.EDC 13:05
DX: F10.20 Alcohol dependence, uncomplicated (principal); E11.9 Type 2 diabetes mellitus without complications; F17.200 Nicotine dependence, unspecified, uncomplicated

== ENCOUNTER → 2017-07-20 | Outpatient (CLI) | payer OTHER ==
[~2017-07-20] MED LIST changes: +CHLO10CA7 PO; +ESOM20CA PO
== END | disposition home or self-care (01) ==
LOC: C.LAB 02:18
DX: Z02.83 Encounter for blood-alcohol and blood-drug test (principal)

== ENCOUNTER 2017-12-23 16:17 | Emergency (ER) | payer OTHER ==
[~2017-12-23] VITALS: Ht 185.4 cm; Wt 131.3 kg
[2017-12-23 16:26] VITALS: TEMP 36.6; Ht 185.4 cm; Wt 131.3 kg
[2017-12-23] MEDS ORDERED: ONDANSETRON INJ 2 MG/ML 2 ML VIAL IV STA (16:53)
[2017-12-23] MEDS ORDERED: DiphenhydrAMINE HCL 50 MG/ML VIAL IV STA (16:53)
[2017-12-23] MEDS ORDERED: SODIUM CHLORIDE 0.9% 1000ML 500 ML IV STA (16:53)
[2017-12-23] MEDS ORDERED: PROCHLORPERAZINE 5 MG/ML 2 ML VIAL IV STA (16:53)
--- NOTE | 2017-12-23 17:06 | EMERGENCY ROOM VISIT NOTE ---
History Report prepared by Fidel: Salena Castillo Under the Supervision of: Dr. Virgil Nix M.D. First contact with patient: 16:49 Chief Complaint: HEAD PAIN Stated Complaint: EXCESSIVE HEAD PAIN History of Present Illness The patient is a 42 year old male who presents to the Emergency Room with complaints of a sudden headache beginning 1 hour prior to arrival. He rates his pain at a 10/10. Per family, the patient did not have any trauma or injury. His family states that she gave him his normal medications today and that his pain started after. He reports having blurry vision but states that this is normal for him as he is diabetic. The patient states that he has a high tolerance for pain and that he has never had pain like this before and states that he never gets migraines or headaches. His family states that the patient started Wellbutrin a month and a half ago, but denies any new medications started in the last several days. The patient reports that he ate and drank normally today. The patient reports having nausea and vomiting after the headache began, but denies having trouble moving his extremities. Per family, the patient has been congested the last week and has been febrile. The patient reports that blowing his nose takes away the pressure in his head. Source of History: patient, family Onset: 1 hour prior to arrival Position: head Symptom Intensity: rated at a 10/10 Quality: other (headache ) Timing: other (sudden) Associated Symptoms: + fevers, + nausea, + vomiting Note: additional symptoms: blurry vision denies: trouble moving his extremities Review of Systems See HPI for pertinent positives & negatives. A total of 10 systems reviewed and were otherwise negative. Past Medical & Surgical Medical Problems: (1) Diabetes (2) Rectal bleed Family History Colon cancer Crohn's disease Diabetes mellitus Thyroid cancer Social History Smoking Status: Never Smoker Alcohol Use: heavy Drug Use: cocaine Marital Status: in relationship Housing Status: lives with family Occupation Status: employed Current/Historical Medications Scheduled Bupropion (Wellbutrin), 75 MG PO DAILY Colchicine (Colchicine), 0.6 MG PO DAILY Doxycycline Hyclate (Vibramycin), 100 MG PO BID Esomeprazole Magnesium (Nexium), 20 MG PO DAILY Guanfacine Hcl (Tenex), 1 MG PO HS Lisinopril (Prinivil), 5 MG PO DAILY Metformin Hcl (Glucophage), 1,000 MG PO BID Pseudoephedrine Hcl (Sudafed Nasal Decongestan), 1-2 TAB PO Q6 Sertraline (Zoloft), 100 MG PO DAILY Scheduled PRN Meloxicam (Mobic), 7.5 MG PO BID PRN for Pain Oxycodone Ir (Roxicodone Ir), 1-2 TAB PO Q4H PRN for Pain Allergies Coded Allergies: Penicillins (Verified Allergy, Intermediate, RASH, 12/23/17) Physical Exam Vital Signs Date Time Temp Pulse Resp B/P (MAP) Pulse Ox O2 Delivery O2 Flow Rate FiO2 12/23/17 18:50 66 18 130/88 94 Room Air 12/23/17 18:03 62 16 164/102 94 Room Air 12/23/17 17:27 60 12/23/17 16:26 36.6 75 18 164/136 99 Room Air Physical Exam GENERAL: Significant distress secondary to pain. Moaning. HEENT: No acute trauma, normocephalic atraumatic, mucous membranes moist, no nasal congestion, no scleral icterus. NECK: No stridor, no adenopathy, no meningismus, trachea is midline. LUNGS: Clear to auscultation bilaterally, no wheeze, no rhonchi, breath sounds equal. HEART: Without murmurs gallops or rubs, regular rate and rhythm. ABDOMEN: Soft, nontender, bowel sounds positive, no hernias, no peritonitis. EXTREMITIES: No cyanosis or edema, full range of motion of all the joints without pain or difficulty, no signs for acute trauma. NEUROLOGIC: Oriented x 3, no acute motor or sensory deficits, no focal weakness. SKIN: No rash, no jaundice, no diaphoresis. Medical Decision & Procedures ER Provider Diagnostic Interpretation: Radiology results as stated below per my review and radiologist interpretation: HEAD WITHOUT CONTRAST (CT) CT DOSE: 537.48 mGy.cm HISTORY: Pain HEADACHE TECHNIQUE: Multiaxial CT images of the head were performed without the use of intravenous contrast. A dose lowering technique was utilized adhering to the principles of ALARA. Comparison: 08/18/2015 Findings: Considerable mucosal thickening in the ethmoid and to a lesser extent sphenoid sinuses. Mastoid air cells are clear. The calvarium and skull base are intact. The ventricles and sulci are within normal limits. There is no mass, hematoma, midline shift, or acute infarct. Impression: No acute intracranial abnormality. Considerable mucosal thickening of the ethmoid sinus mucosa The above report was generated using voice recognition software. It may contain grammatical, syntax or spelling errors. Electronically signed by: Tejas Everett M.D. 12/23/2017 5:19 PM Dictated Date/Time: 12/23/2017 5:17 PM HEAD ANGIO WITH CONTRAST CLINICAL HISTORY: Headache Mental status change TECHNIQUE: Transaxial acquisition with multi axial reformatted images COMPARISON STUDY: CT brain same date FINDINGS: Somewhat limited exam in terms of high-resolution images due to patient motion. Nevertheless, all major intracranial vessels appear to be intact. There is no evidence for major stenotic process. No major aneurysmal process is seen. IMPRESSION: Negative study. The above report was generated using voice recognition software. It may contain grammatical, syntax or spelling errors. Electronically signed by: Tejas Everett M.D. 12/23/2017 6:09 PM Dictated Date/Time: 12/23/2017 6:01 PM Laboratory Results 12/23/17 17:05 12/23/17 17:05 Test 12/23/17 17:05 Red Blood Count 5.21 M/uL (4.7-6.1) Mean Corpuscular Volume 84.5 fL (80-100) Mean Corpuscular Hemoglobin 30.9 pg (25-34) Mean Corpuscular Hemoglobin Concent 36.6 g/dl (32-36) RDW Standard Deviation 37.8 fL (36.4-46.3) RDW Coefficient of Variation 12.4 % (11.5-14.5) Mean Platelet Volume 8.9 fL (7.4-10.4) Anion Gap 8.0 mmol/L (3-11) Est Creatinine Clear Calc Drug Dose 132.6 ml/min Estimated GFR () 104.4 Estimated GFR (Non- 90.0 BUN/Creatinine Ratio 17.2 (10-20) Calcium Level 9.6 mg/dl (8.5-10.1) Laboratory results reviewed by me. Medications Administered Medications (Trade) Dose Ordered Sig/Carine Route Start Time Stop Time Status Last Admin Dose Admin Sodium Chloride 500 ml @ 999 mls/hr Q31M STAT IV 12/23/17 16:53 12/23/17 17:23 DC 12/23/17 17:09 999 MLS/HR Prochlorperazine Edisylate (Compazine Inj) 10 mg NOW STAT IV 12/23/17 16:53 12/23/17 16:59 DC 12/23/17 17:08 10 MG Morphine Sulfate (MoRPHine SULFATE INJ) 4 mg Q15M PRN IV 12/23/17 17:00 12/23/17 19:45 DC 12/23/17 18:07 4 MG Diphenhydramine HCl (Benadryl Inj) 50 mg NOW STAT IV 12/23/17 16:53 12/23/17 16:58 DC 12/23/17 17:07 50 MG Ondansetron HCl (Zofran Inj) 4 mg NOW STAT IV 12/23/17 16:53 12/23/17 16:58 DC 12/23/17 17:08 4 MG Doxycycline Hyclate (Vibramycin Cap) 100 mg ONE ONCE PO 12/23/17 18:15 12/23/17 18:16 DC 12/23/17 18:24 100 MG Ceftriaxone Sodium (Rocephin Inj) 1 gm NOW STAT IV 12/23/17 18:11 12/23/17 18:12 DC 12/23/17 18:24 1 GM Pseudoephedrine HCl (Sudafed Tab) 60 mg NOW STAT PO 12/23/17 18:11 12/23/17 18:12 DC 12/23/17 18:24 60 MG Ketorolac Tromethamine (Toradol Inj) 30 mg NOW STAT IV 12/23/17 18:14 12/23/17 18:15 DC 12/23/17 18:25 30 MG Oxycodone HCl (Roxicodone Immediate Rel 5MG Home Pack) 1 homepack UD ONCE PO 12/23/17 18:30 12/23/17 18:31 DC 12/23/17 18:30 1 HOMEPACK ECG Per My Interpretation Indication: weakness Rate (beats per minute): 70 Rhythm: normal sinus Findings: other (no ST elevation, no PVCs ) ED Course 1651: The patient was evaluated in room A3. A complete history and physical exam was performed. 1652: Ordered Zofran Inj 4 mg IV, Benadryl Inj 50 mg IV, Compazine Inj 10 mg IV , Sodium Chloride 500 ml @ 999 mls/hr IV. 1700: Ordered Morphine Sulfate 4 mg IV. 1810: Ordered Sudafed Tab 60 mg PO, Rocephin 1 gm IV. 1811: I checked on the patient and updated him. He is feeling significantly better. 1813: Ordered Toradol Inj 30 mg IV. 1814: Ordered Vibramycin Gonzalez 100 mg PO. 1829: Ordered Oxycodone HCl 1 homepack PO. 1831: Reevaluated the patient. Discussed results and discharge instructions: He verbalized understanding and agreement. The patient is ready for discharge. Medical Decision The patient is a 42 year old male who presents to the ED with complaints of a headache. Differential diagnoses considered include intracranial bleeding, aneurysm, sinusitis, meningitis, migraine, nerve impingement, and dental infection. There is no leukocytosis or concerning anemia. Renal panel testing shows a sugar over 200, the patient is diabetic. No kidney failure. Brain CT shows no acute bleed or mass-effect. Sinusitis was noted. Brain CT angiography does not show evidence for aneurysm. On exam, the patient did not have any focal neurologic deficits. He was not febrile. No meningismus. The patient received IV saline, IV morphine, IV Compazine and IV Benadryl. He received IV Zofran, IV ceftriaxone and IV Toradol. He was given oral doxycycline. He received oral Sudafed. The patient presents with a left sided headache. The headache is improved with blowing his nose. He has had nasal congestion lately. Workup suggests sinusitis, I think this is causing his difficulty. The patient is improved with treatment. He is being discharged on doxycycline, Sudafed and a few oxycodone. If things are worsening, he can return for reassessment. [place] Drug Monitoring Program Search Results: patient reviewed within database, no issues identified Medication Reconcilliation Current Medication List: was personally reviewed by me Blood Pressure Screening Patient's blood pressure: Elevated blood pressure Blood pressure disposition: Referred to PCP Impression Primary Impression: Headache Additional Impressions: Vomiting Sinusitis Scribe Attestation The scribe's documentation has been prepared under my direction and personally reviewed by me in its entirety. I confirm that the note above accurately reflects all work, treatment, procedures, and medical decision making performed by me. Departure Information Dispostion Home / Self-Care Prescriptions Pseudoephedrine Hcl (SUDAFED NASAL DECONGESTAN) 30 Mg Tab 1-2 TAB PO Q6, #25 TAB Prov: Virgil Nix M.D. 12/23/17 Oxycodone Ir (Roxicodone Ir) 5 Mg Tab 1-2 TAB PO Q4H Y for Pain, #8 TAB Prov: Virgil Nix M.D. 12/23/17 Doxycycline Hyclate (VIBRAMYCIN) 100 Mg Cap 100 MG PO BID for 10 Days, #20 CAP Prov: Virgil Nix M.D. 12/23/17 Referrals Kirill Valdez M.D. (PCP) Forms HOME CARE DOCUMENTATION FORM, IMPORTANT VISIT INFORMATION, WORK / SCHOOL INSTRUCTIONS Patient Instructions My [facility] Additional Instructions sudafed for congestion every 6 hours stay well hydrated doxycycline 2x per day for 10 days oxy ir 1 tab every 4 hours for pain tylenol for pain follow with john rodríguez this week return if worsening brain imaging was ok today Problem Qualifiers
[2017-12-23] MEDS: MoRPHine SULFATE 4 MG/ML 1 ML CARP\\VIAL IV PRN ×3 (17:08→18:07)
[2017-12-23 17:14] LABS: HEMOGLOBIN 16.1 g/dL (14.0-18.0); MEAN CELL VOLUME 84.5 fL (80-100); MEAN CORPUSCULAR HEMOGLOBIN 30.9 pg (25-34); MEAN CORPUSCULAR HGB CONC 36.6 g/dl (32-36); MEAN PLATELET VOLUME 8.9 fL (7.4-10.4); PLATELET COUNT 356 K/uL (130-400); RED CELL DISTRIBUTION WIDTH CV 12.4 % (11.5-14.5); RED CELL DISTRIBUTION WIDTH SD 37.8 fL (36.4-46.3); WHITE BLOOD COUNT 8.08 K/uL (4.8-10.8)
[2017-12-23] MEDS ORDERED: GUAN1TAB PO (17:18)
[2017-12-23] MEDS ORDERED: MELO7.5T5 PO (17:18)
[2017-12-23] MEDS ORDERED: BUPR75TA20 PO (17:18)
[2017-12-23] MEDS ORDERED: SERT-234 PO (17:18)
[2017-12-23] MEDS ORDERED: COLC0.6T54 PO (17:18)
--- NOTE | 2017-12-23 17:20 | DIAGNOSTIC IMAGING REPORT ---
HEAD WITHOUT CONTRAST (CT) CT DOSE: 537.48 mGy.cm HISTORY: Pain HEADACHE TECHNIQUE: Multiaxial CT images of the head were performed without the use of intravenous contrast. A dose lowering technique was utilized adhering to the principles of ALARA. Comparison: 08/18/2015 Findings: Considerable mucosal thickening in the ethmoid and to a lesser extent sphenoid sinuses. Mastoid air cells are clear. The calvarium and skull base are intact. The ventricles and sulci are within normal limits. There is no mass, hematoma, midline shift, or acute infarct. Impression: No acute intracranial abnormality. Considerable mucosal thickening of the ethmoid sinus mucosa The above report was generated using voice recognition software. It may contain grammatical, syntax or spelling errors. Electronically signed by: Tejas Everett M.D. 12/23/2017 5:19 PM Dictated Date/Time: 12/23/2017 5:17 PM
[2017-12-23 17:29] LABS: CALCIUM 9.6 mg/dl (8.5-10.1); CREATININE 1.01 mg/dl (0.60-1.40); POTASSIUM 4.2 mmol/L (3.5-5.1)
[2017-12-23] MEDS ORDERED: OPTIRAY 320 IV PRN (18:00)
--- NOTE | 2017-12-23 18:10 | DIAGNOSTIC IMAGING REPORT ---
HEAD ANGIO WITH CONTRAST CLINICAL HISTORY: Headache Mental status change TECHNIQUE: Transaxial acquisition with multi axial reformatted images COMPARISON STUDY: CT brain same date FINDINGS: Somewhat limited exam in terms of high-resolution images due to patient motion. Nevertheless, all major intracranial vessels appear to be intact. There is no evidence for major stenotic process. No major aneurysmal process is seen. IMPRESSION: Negative study. The above report was generated using voice recognition software. It may contain grammatical, syntax or spelling errors. Electronically signed by: Tjeas Everett M.D. 12/23/2017 6:09 PM Dictated Date/Time: 12/23/2017 6:01 PM
[2017-12-23] MEDS ORDERED: CEFTRIAXONE SOD INJ 1 GM ADDVIAL IV STA (18:11)
[2017-12-23] MEDS ORDERED: PSEUDOEPHEDRINE HCL 30 MG TAB PO STA (18:11)
[2017-12-23] MEDS ORDERED: KETOROLAC TROMETHAMINE 30 MG/ML VIAL IV STA (18:14)
[2017-12-23] MEDS ORDERED: DOXYCYCLINE HYCLATE 100 MG CAP PO ONE (18:15)
[2017-12-23] MEDS ORDERED: OXYC1TAB3 PO (18:25)
[2017-12-23] MEDS ORDERED: DOXY100C PO (18:25)
[2017-12-23] MEDS ORDERED: PSEU30TA3 PO (18:25)
[2017-12-23] MEDS ORDERED: OXYCODONE IR HOME PACK PO ONE (18:30)
[2017-12-23 18:50] VITALS: BP 130/88; PULSE 66; O2SAT 94
== END 2017-12-23 19:09 | disposition home or self-care (01) ==
LOC: C.EDB 16:18 → C.EDA 19:09
DX: R51 Headache (principal); R11.10 Vomiting, unspecified; J32.9 Chronic sinusitis, unspecified; E11.9 Type 2 diabetes mellitus without complications; Z83.3 Family history of diabetes mellitus; F11.20 Opioid dependence, uncomplicated; Z88.0 Allergy status to penicillin

== ENCOUNTER 2017-12-28 20:04 | Emergency (ER) | payer OTHER ==
[~2017-12-28] VITALS: Ht 185.4 cm; Wt 126.4 kg
[~2017-12-28 20:04] MED LIST changes: +BUPR75TA20 PO; -CHLO10CA7 PO; +COLC0.6T54 PO; +DOXY100C PO; +GUAN1TAB PO; +MELO7.5T5 PO; -MELO7.5T6 PO; +OXYC1TAB3 PO; +PSEU30TA3 PO; +SERT-234 PO; -VLTG EXT
[2017-12-28 20:09] VITALS: TEMP 37.1; Ht 185.4 cm; Wt 126.4 kg
[2017-12-28 23:19] LABS: BASO % 0.7 %; BASO ABS # 0.07 K/uL (0-0.2); EOS % 2.1 %; EOS ABS # 0.22 K/uL (0-0.5); HEMATOCRIT 42.5 % (42-52); HEMOGLOBIN 15.7 g/dL (14.0-18.0); IG# 0.07 K/uL (0.00-0.02); LYMPH % 21.4 %; LYMPH ABS # 2.21 K/uL (1.2-3.4); MEAN CELL VOLUME 84.3 fL (80-100); MEAN CORPUSCULAR HEMOGLOBIN 31.2 pg (25-34); MEAN CORPUSCULAR HGB CONC 36.9 g/dl (32-36); MEAN PLATELET VOLUME 8.9 fL (7.4-10.4); MONO % 7.1 %; MONO ABS # 0.74 K/uL (0.11-0.59); NEUT ABS # 7.04 K/uL (1.4-6.5); PLATELET COUNT 329 K/uL (130-400); RED CELL DISTRIBUTION WIDTH CV 12.5 % (11.5-14.5); RED CELL DISTRIBUTION WIDTH SD 38.1 fL (36.4-46.3); WHITE BLOOD COUNT 10.35 K/uL (4.8-10.8)
[2017-12-28 23:28] LABS: ALBUMIN 3.5 gm/dl (3.4-5.0); CALCIUM 8.5 mg/dl (8.5-10.1); CREATININE 0.76 mg/dl (0.60-1.40); POTASSIUM 3.4 mmol/L (3.5-5.1); TOTAL PROTEIN 8.1 gm/dl (6.4-8.2)
--- NOTE | 2017-12-29 00:21 | EMERGENCY ROOM VISIT NOTE ---
History Report prepared by Fidel: Salena Castillo Under the Supervision of: Dr. Daniel Seay D.O. First contact with patient: 20:58 Chief Complaint: ALCOHOL OVERDOSE Nursing Triage Summary: Pt states drinking beer since 4pm, states "7 pitchers of beer, add 10 captain and diets and 7 fireball shots." Pt left [employer], got a ride home, pt states "laid in the yard because Larisa is crazy and she would hit me, so I stayed outside. Next thing I know I have police officers in my grill on my property and I asked them to leave and they brought me here." History of Present Illness The patient is a 42 year old male who presents to the Emergency Room with complaints of an alcohol overdose occurring prior to arrival. The patient denies thoughts of hurting anyone or himself. He denies making any statements while intoxicated. The petition states that the patient was lying down in his yard in dog feces in the cold weather only wearing a short sleeve shirt. The petition states that he stated to the railroad police officer that he wants to kill himself and that he would be better off . Per petition, the patient would go from happy to angry in a matter of moments. Source of History: patient Onset: prior to arrival Position: other (global) Quality: other (alcohol overdose ) Timing: constant Review of Systems See HPI for pertinent positives & negatives. A total of 10 systems reviewed and were otherwise negative. Past Medical & Surgical Medical Problems: (1) Diabetes (2) Rectal bleed Family History Colon cancer Crohn's disease Diabetes mellitus Thyroid cancer Social History Smoking Status: Never Smoker Alcohol Use: heavy Drug Use: cocaine Marital Status: in relationship Housing Status: lives with family Occupation Status: employed Current/Historical Medications Scheduled Bupropion (Wellbutrin), 75 MG PO DAILY Colchicine (Colchicine), 0.6 MG PO DAILY Doxycycline Hyclate (Vibramycin), 100 MG PO BID Esomeprazole Magnesium (Nexium), 20 MG PO DAILY Guanfacine Hcl (Tenex), 1 MG PO HS Lisinopril (Prinivil), 5 MG PO DAILY Metformin Hcl (Glucophage), 1,000 MG PO BID Pseudoephedrine Hcl (Sudafed Nasal Decongestan), 1-2 TAB PO Q6 Sertraline (Zoloft), 100 MG PO DAILY Scheduled PRN Meloxicam (Mobic), 7.5 MG PO BID PRN for Pain Oxycodone Ir (Roxicodone Ir), 1-2 TAB PO Q4H PRN for Pain Allergies Coded Allergies: Penicillins (Verified Allergy, Intermediate, RASH, 12/23/17) Physical Exam Vital Signs Date Time Temp Pulse Resp B/P (MAP) Pulse Ox O2 Delivery O2 Flow Rate FiO2 12/28/17 22:33 104 16 144/80 96 Room Air 12/28/17 20:09 37.1 112 22 199/127 99 Room Air Physical Exam CONSTITUTIONAL/VITAL SIGNS: Reviewed / noted above. GENERAL: Non-toxic in appearance. INTEGUMENTARY: Warm, dry, and [place]. HEAD: Normocephalic. EYES: without scleral icterus or trauma. ENT/OROPHARYNX: clear and moist. LYMPHADENOPATHY/NECK: Is supple without lymphadenopathy or meningismus. RESPIRATORY: Lungs clear and equal. CARDIOVASCULAR: Regular rate and rhythm. GI/ABDOMEN: Soft and nontender. No organomegaly or pulsatile mass. No rebound or guarding. Normal bowel sounds. EXTREMITIES: Warm and well perfused. BACK: No CVA tenderness. NEUROLOGICAL: Intact without focal deficits. PSYCHIATRIC: normal affect. MUSCULOSKELETAL: Normally developed with good muscle tone. PSYCH: Currently denies suicidal and homicidal ideation. Medical Decision & Procedures Laboratory Results 12/28/17 21:07 Red Blood Count 5.04, Mean Corpuscular Volume 84.3, Mean Corpuscular Hemoglobin 31.2, Mean Corpuscular Hemoglobin Concent 36.9, Mean Platelet Volume 8.9, Neutrophils (%) (Auto) 68.0, Lymphocytes (%) (Auto) 21.4, Monocytes (%) (Auto) 7.1, Eosinophils (%) (Auto) 2.1, Basophils (%) (Auto) 0.7, Neutrophils # (Auto) 7.04, Lymphocytes # (Auto) 2.21, Monocytes # (Auto) 0.74, Eosinophils # (Auto) 0.22, Basophils # (Auto) 0.07 12/28/17 21:07 Test 12/28/17 20:26 12/28/17 21:07 Urine Color YELLOW Urine Appearance CLEAR (CLEAR) Urine pH 5.0 (4.5-7.5) Urine Specific [place] 1.012 (1.000-1.030) Urine Protein NEG (NEG) Urine Glucose (UA) 3+ (NEG) Urine Ketones NEG (NEG) Urine Occult Blood NEG (NEG) Urine Nitrite NEG (NEG) Urine Bilirubin NEG (NEG) Urine Urobilinogen NEG (NEG) Urine Leukocyte Esterase NEG (NEG) Urine Opiates Screen NEG (NEG) Urine Methadone, Qualitative NEG (NEG) Urine Barbiturates NEG (NEG) Urine Phencyclidine (PCP) Level NEG (NEG) Ur Amphetamine/Methamphetamine NEG (NEG) MDMA (Ecstasy) Screen POS (NEG) Urine Benzodiazepines Screen NEG (NEG) Urine Cocaine Metabolite NEG (NEG) Urine Marijuana (THC) NEG (NEG) White Blood Count 10.35 K/uL (4.8-10.8) Red Blood Count 5.04 M/uL (4.7-6.1) Hemoglobin 15.7 g/dL (14.0-18.0) Hematocrit 42.5 % (42-52) Mean Corpuscular Volume 84.3 fL (80-100) Mean Corpuscular Hemoglobin 31.2 pg (25-34) Mean Corpuscular Hemoglobin Concent 36.9 g/dl (32-36) Platelet Count 329 K/uL (130-400) Mean Platelet Volume 8.9 fL (7.4-10.4) Neutrophils (%) (Auto) 68.0 % Lymphocytes (%) (Auto) 21.4 % Monocytes (%) (Auto) 7.1 % Eosinophils (%) (Auto) 2.1 % Basophils (%) (Auto) 0.7 % Neutrophils # (Auto) 7.04 K/uL (1.4-6.5) Lymphocytes # (Auto) 2.21 K/uL (1.2-3.4) Monocytes # (Auto) 0.74 K/uL (0.11-0.59) Eosinophils # (Auto) 0.22 K/uL (0-0.5) Basophils # (Auto) 0.07 K/uL (0-0.2) RDW Standard Deviation 38.1 fL (36.4-46.3) RDW Coefficient of Variation 12.5 % (11.5-14.5) Immature Granulocyte % (Auto) 0.7 % Immature Granulocyte # (Auto) 0.07 K/uL (0.00-0.02) Anion Gap 11.0 mmol/L (3-11) Est Creatinine Clear Calc Drug Dose 172.8 ml/min Estimated GFR () 128.6 Estimated GFR (Non- 111.0 BUN/Creatinine Ratio 14.8 (10-20) Calcium Level 8.5 mg/dl (8.5-10.1) Total Bilirubin 0.4 mg/dl (0.2-1) Aspartate Amino Transf (AST/SGOT) 102 U/L (15-37) Alanine Aminotransferase (ALT/SGPT) 188 U/L (12-78) Alkaline Phosphatase 131 U/L (45-117) Total Protein 8.1 gm/dl (6.4-8.2) Albumin 3.5 gm/dl (3.4-5.0) Globulin 4.6 gm/dl (2.5-4.0) Albumin/Globulin Ratio 0.8 (0.9-2) Thyroid Stimulating Hormone (TSH) 2.390 uIu/ml (0.300-4.500) Salicylates Level < 1.7 mg/dl (2.8-20) Acetaminophen Level < 2 ug/ml (10-30) Ethyl Alcohol mg/dL 250.8 mg/dl (0-3) Laboratory results as stated above per my review. ED Course 2100: Previous medical records were reviewed. The patient was evaluated in room A5. A complete history and physical examination was performed. 0030: The patient was signed out to Dr. Fernando. Medical Decision differential includes toxic ingestions, self-mutilation, suicidal ideation, suicide attempt, depression. This is a 42-year-old male who presents to the ED with a chief complaint of a 302 petition. This was filled out by police. The patient had made some suicidal comments while he was intoxicated and when please were interacting with him prior to his arrival here. The patient's current comments during my evaluation report that he is denying being suicidal or homicidal. Of note his alcohol level at my time of evaluation revealed 250. The patient's blood work otherwise revealed a slight elevation of his liver function test. This could be related to chronic alcohol use. His glucose was 232. The patient's blood pressure was noted to be elevated when he first came in. This may be situational or related to hypertension. The patient is on a number of medications for chronic issues. He will need evaluated at 3 AM from a psychiatric standpoint. Again when I saw him, he denied any suicidal or homicidal. This patient will be signed out to Dr. fernando at the time of my departure at 12:30 AM. Medication Reconcilliation Current Medication List: was personally reviewed by me Blood Pressure Screening Patient's blood pressure: Elevated blood pressure Blood pressure disposition: Elevated BP felt to be situational Impression Primary Impression: Alcohol intoxication Additional Impression: Evaluation by psychiatric service required Scribe Attestation The scribe's documentation has been prepared under my direction and personally reviewed by me in its entirety. I confirm that the note above accurately reflects all work, treatment, procedures, and medical decision making performed by me. Departure Information Dispostion Still a Patient Referrals Kirill Valdez M.D. (PCP) Patient Instructions My [facility] [address] Problem Qualifiers
[2017-12-29] MEDS ORDERED: ALUMINUM/MAGNESIUM SUSP 30 ML UDC PO STA (04:39)
--- NOTE | 2017-12-29 04:43 | EMERGENCY ROOM VISIT NOTE ---
ED Visit Note First contact with patient: 04:35 Patient seen and evaluated by psychiatric block and case maker here. They feel patient is safe for discharge. Patient is to be picked up by police upon discharge. Discussed with patient his use of alcohol and encouraged to cut back on his drinking. 302 declined. Patient did complain of heartburn, an EKG was obtained as a precaution did not show any changes concerning for an acute ischemic event. Maalox and Pepcid ordered for the patient's symptoms and he was improved after. Patient to be picked up by [facility] police.
[2017-12-29] MEDS ORDERED: FAMOTIDINE 20 MG TAB PO ONE (04:45)
[2017-12-29 09:40] VITALS: BP 190/83; PULSE 86; O2SAT 100
== END 2017-12-29 09:40 | disposition home or self-care (01) ==
LOC: C.EDA 20:07
DX: Z04.6 Encounter for general psychiatric examination, requested by authority (principal); T51.91XA Toxic effect of unspecified alcohol, accidental (unintentional), initial encounter; E11.9 Type 2 diabetes mellitus without complications; Z79.84 Long term (current) use of oral hypoglycemic drugs; Z88.0 Allergy status to penicillin; Z82.49 Family history of ischemic heart disease and other diseases of the circulatory system; Z80.0 Family history of malignant neoplasm of digestive organs; Z83.3 Family history of diabetes mellitus; Z80.8 Family history of malignant neoplasm of other organs or systems

== ENCOUNTER 2020-01-05 22:42 | Inpatient (IN) ==
--- NOTE | 2020-01-05 23:19 | Emergency Department Note ---
Impression & Plan Depression with suicidal ideation, Alcohol overdose ED Provider Note NAME: AMADA JACOBSEN AGE: 44 SEX: M ARRIVES VIA: Ambulance INFORMANT: Patient ED PROVIDER(S): Steph Gresham DO CHIEF COMPLAINT: Alcohol overdose PLAN: Disposition: The patient will be admitted to 3 S. Condition: Good MEDICAL DECISION MAKING: This is a 44-year-old male patient with history of alcoholism who presents to the emergency department after drinking a significant amount of alcohol tonight and making suicidal statements. The patient is an alcoholic and has been sober for the past year. He recently lost his job and started drinking alcohol again. He told me that he was trying to harm himself tonight by drinking such an excessive amount of alcohol. The patient suffers from bipolar disorder and posttraumatic stress disorder. He has felt increasingly depressed and admits that he was trying to harm himself tonight. He is willing to admit himself for inpatient psychiatric care. The patient will sign himself in voluntarily to 3 S. Triage Nursing notes reviewed and agree them. Prior medical records reviewed Vital Signs: reviewed and remarkable for tachycardia and hypertension Differential diagnosis: Alcohol overdose; intentional overdose; suicide attempt; exacerbation of alcoholism; mood disorder; thought disorder ER treatment provided: Tylenol Zofran ODT Laboratory studies: See below HPI: 44/M arrives for evaluation of suicidal threats. This is a 44-year-old male patient who presents to the emergency department with EMS after his called because he would not let her in the house. The patient is an alcoholic and has not been drinking alcohol over the past 1 year. He started drinking alcohol today because he felt hopeless after losing his job. The patient suffers from bipolar disorder and posttraumatic stress disorder. He has felt increasingly depressed and admits that he was trying to harm himself tonight by drinking such excessive amount of alcohol ROS: See above HPI for pertinent positives & negatives. A total of 10 systems reviewed and were otherwise negative. PAST MEDICAL HISTORY:Hypertension, diabetes, PTSD, Bipolar disorder PAST SURGICAL HISTORY:See Below FAMILY HISTORY:See Below SOCIAL HISTORY:The patient recently lost his job; he lives with his ; he denies any drug use; he describes himself as an alcoholic who had been sober for 1 year and drank for the first time tonight. HOME MEDICATIONS:See list ALLERGIES:Penicillin VITALS:See Below PHYSICAL EXAMINATION: HEENT: Head - normocephalic and atraumatic Pupils are equal, round, and reactive to light. Extraocular eye muscles are intact, and sclera are anicteric. There is significant scleral injection. Nose - moist nasal mucosa without discharge. Mouth - moist buccal mucosa. Oropharynx is nonerythematous and there is no tonsillar exudate or edema noted. Neck: Supple; no JVD, nuchal rigidity, cervical lymphadenopathy, or auscultated bruits. Heart: Tachycardic rate with a regular rhythm. There is a normal S1 and S2 with no murmurs, clicks, or gallops appreciated. Lungs: Clear to auscultation bilaterally with no wheezes, rales, or rhonchi. Abdomen: Soft, completely nontender, nondistended, with good bowel sounds. There are no palpable pulsatile masses or hepatosplenomegaly. There is no guarding, rigidity, or rebound noted. Extremities: No evidence of cyanosis, clubbing, or edema. There are easily palpable peripheral pulses. Skin: warm and dry with good turgor and no rashes. He has multiple tattoos. Psych: The patient is tearful on exam. He states that he just wants to . He tells me that he tried to drink himself to tonight because he feels that his life is over and that he is hopeless. ED COURSE: 2305: The patient was evaluated in room A 11. A complete history and physical was performed. The patient had laboratory studies drawn as above. He was moved from this room to room A8. 0005:I reevaluated the patient at this time and he was sleeping. 0205: The patient remains asleep at this time. He will be medically cleared around 3 AM. At that time he will have a full psychiatric evaluation by the ED psychiatric caser in. 0320: I reevaluated the patient at this time. He is willing to sign himself in voluntarily for inpatient psychiatric care. We are drawing a lithium level at this time. The patient is complaining of a headache and will get Tylenol. He missed his evening medications. We will await his lithium level to determine whether or not to give him his evening lithium dose. 0440: The patient complained of feeling nauseated. He was also thirsty. I will order Zofran ODT. 0455: The patient is vomiting at this time. He had just received sublingual Zofran. He had also just drank a glass of water. He will try taking sips of ruby mario. 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 Feels Safe at Home: Declines to Answer Smoking Status: Never smoker Hx Alcohol Use: Yes Allergies Allergies Allergy/AdvReac Type Severity Reaction Status Date / Time Penicillins Allergy Intermediate RASH Verified 01/05/20 23:00 Home Meds Home Medications Medication Instructions Recorded Confirmed sildenafil (pulm.hypertension) 20 40 mg PO DAILY PRN tab 07/02/19 01/05/20 mg tablet lithium carbonate 300 mg capsule 300 mg PO QAM cap 07/30/19 01/05/20 canagliflozin [Invokana] 300 mg PO QAM 11/28/19 01/05/20 cariprazine [Vraylar] 3 mg PO QAM 11/28/19 01/05/20 lisinopril 5 mg PO QAM 11/28/19 01/05/20 metformin 1,000 mg PO BID 01/05/20 01/05/20 Previous Rx's Medication Instructions Recorded lithium carbonate 600 mg capsule 600 mg PO HS #30 cap 07/04/19 naltrexone microspheres 380 mg 380 mg IM ONCE #1 ea 07/05/19 intramuscular suspension,extended release blood sugar diagnostic #100 ea 10/11/19 lancets 33 gauge #100 ea 10/11/19 Results & Data (ED) Vital Signs Vital Signs - 24 hr 01/05/20 22:31 01/06/20 00:41 01/06/20 02:42 Temperature 36.9 C Temperature Source Oral Pulse Rate 118 H Pulse Rate [Finger] 108 H 100 H Pulse Strength [Finger] Normal Respiratory Rate 24 16 15 Respiratory Effort / Characteristics Non-Labored Spontaneous Non-Labored Spontaneous Non-Labored Respiratory Depth Normal Normal Respiratory Pattern Regular Blood Pressure 126/83 Blood Pressure [Right Arm] 156/91 H 102/70 Blood Pressure Mean 97 Blood Pressure Mean [Right Arm] 112 80 Blood Pressure Position Lying Blood Pressure Position [Right Arm] Lying Pulse Oximetry 95 93 93 Oxygen Delivery Method Room Air Room Air Room Air Sepsis Recent Fever Within 48 Hours No Sepsis Action Taken by Nursing No Action Required Laboratory Data Result diagrams: 01/05/20 23:41 01/05/20 23:41 Lab Results 01/05/20 01/05/20 01/05/20 Range/Units 23:30 23:30 23:41 WBC 13.43 H (4.8-10.8) K/uL RBC 5.86 (4.7-6.1) M/uL Hgb 17.0 (14.0-18.0) g/dL Hct 47.6 (42-52) % MCV 81.2 (80-100) fL MCH 29.0 (25-34) pg MCHC 35.7 (32-36) g/dL RDW Std Deviation 38.6 (36.4-46.3) fL RDW Coeff of Will 13.1 (11.5-14.5) % Plt Count 430 H (130-400) K/uL MPV 9.1 (7.4-10.4) fL Immature Gran % (Auto) 0.4 % Neut % (Auto) 68.6 % Lymph % (Auto) 22.4 % Nuckolls % (Auto) 5.6 % Eos % (Auto) 2.6 % Baso % (Auto) 0.4 % Immature Gran # (Auto) 0.06 H (0.00-0.02) K/uL Neut # (Auto) 9.20 H (1.4-6.5) K/uL Lymph # (Auto) 3.01 (1.2-3.4) K/uL [place]oll[place] # (Auto) 0.75 H (0.11-0.59) K/uL Eos # (Auto) 0.35 (0-0.5) K/uL Baso # (Auto) 0.06 (0-0.2) K/uL Sodium (136-145) mmol/L Potassium (3.5-5.1) mmol/L Chloride (98-107) mmol/L Carbon Dioxide (21-32) mmol/L Anion Gap (3-11) BUN (7-18) mg/dl Creatinine (0.6-1.4) mg/dl Est Cr Clr Drug Dosing ml/min Est GFR ( Amer) Est GFR (Non-Af Amer) BUN/Creatinine Ratio (10-20) Glucose (70-99) mg/dl Calcium (8.5-10.1) mg/dl Total Bilirubin (0.2-1) mg/dl AST (15-37) U/L ALT (12-78) U/L Alkaline Phosphatase (45-117) U/L Total Protein (6.4-8.2) gm/dl Albumin (3.4-5.0) gm/dl Globulin (2.5-4.0) gm/dl Albumin/Globulin Ratio (0.9-2) TSH (0.300-4.500) uIu/ml Urine Color Yellow Urine Appearance Clear (Clear) Urine pH 5.0 (4.5-7.5) Ur Specific [place] 1.033 H (1.000-1.030) Urine Protein Trace H (Negative) Urine Glucose (UA) 3+ H (Negative) Urine Ketones Negative (Negative) Urine Blood Negative (Negative) Urine Nitrite Negative (Negative) Urine Bilirubin Negative (Negative) Urine Urobilinogen Negative (Negative) Ur Leukocyte Esterase Negative (Negative) Urine WBC (Auto) 1-5 (0-5) /hpf Urine RBC (Auto) 0-4 (0-4) /hpf U Hyaline Cast (Auto) 0 (0-5) /lpf U Epithel Cells (Auto) 0-5 (0-5) /lpf Urine Bacteria (Auto) Negative (Negative) Salicylates (2.8-20) mg/dl Urine Opiates Screen Neg (Neg) Ur Methadone, Qual Neg (Neg) Acetaminophen (10-30) ug/ml Urine Barbiturates Neg (Neg) Ur Phencyclidine (PCP) Neg (Neg) U Amphetamin/Meth Scrn Neg (Neg) MDMA (Ecstasy) Screen Neg (Neg) U Benzodiazepines Scrn Neg (Neg) Huson (0.6-1.2) mmol/L Ur Cocaine Metabolite Neg (Neg) U Marijuana (THC) Screen Neg (Neg) Ethyl Alcohol mg/dL (0-3) mg/dl 01/05/20 01/05/20 01/05/20 Range/Units 23:41 23:41 23:41 WBC (4.8-10.8) K/uL RBC (4.7-6.1) M/uL Hgb (14.0-18.0) g/dL Hct (42-52) % MCV (80-100) fL MCH (25-34) pg MCHC (32-36) g/dL RDW Std Deviation (36.4-46.3) fL RDW Coeff of Will (11.5-14.5) % Plt Count (130-400) K/uL MPV (7.4-10.4) fL Immature Gran % (Auto) % Neut % (Auto) % Lymph % (Auto) % [place]olls % (Auto) % Eos % (Auto) % Baso % (Auto) % Immature Gran # (Auto) (0.00-0.02) K/uL Neut # (Auto) (1.4-6.5) K/uL Lymph # (Auto) (1.2-3.4) K/uL [place] # (Auto) (0.11-0.59) K/uL Eos # (Auto) (0-0.5) K/uL Baso # (Auto) (0-0.2) K/uL Sodium 138 (136-145) mmol/L Potassium 3.8 (3.5-5.1) mmol/L Chloride 104 (98-107) mmol/L Carbon Dioxide 26 (21-32) mmol/L Anion Gap 8.0 (3-11) BUN 14 (7-18) mg/dl Creatinine 0.72 (0.6-1.4) mg/dl Est Cr Clr Drug Dosing 183.2 ml/min Est GFR ( Amer) 129.7 Est GFR (Non-Af Amer) 111.9 BUN/Creatinine Ratio 19.9 (10-20) Glucose 194 H (70-99) mg/dl Calcium 9.7 (8.5-10.1) mg/dl Total Bilirubin 0.3 (0.2-1) mg/dl AST 21 (15-37) U/L ALT 52 (12-78) U/L Alkaline Phosphatase 99 (45-117) U/L Total Protein 9.4 H (6.4-8.2) gm/dl Albumin 4.2 (3.4-5.0) gm/dl Globulin 5.1 H (2.5-4.0) gm/dl Albumin/Globulin Ratio 0.8 L (0.9-2) TSH 1.910 (0.300-4.500) uIu/ml Urine Color Urine Appearance (Clear) Urine pH (4.5-7.5) Ur Specific [place] (1.000-1.030) Urine Protein (Negative) Urine Glucose (UA) (Negative) Urine Ketones (Negative) Urine Blood (Negative) Urine Nitrite (Negative) Urine Bilirubin (Negative) Urine Urobilinogen (Negative) Ur Leukocyte Esterase (Negative) Urine WBC (Auto) (0-5) /hpf Urine RBC (Auto) (0-4) /hpf U Hyaline Cast (Auto) (0-5) /lpf U Epithel Cells (Auto) (0-5) /lpf Urine Bacteria (Auto) (Negative) Salicylates < 1.7 L (2.8-20) mg/dl Urine Opiates Screen (Neg) Ur Methadone, Qual (Neg) Acetaminophen < 2 L (10-30) ug/ml Urine Barbiturates (Neg) Ur Phencyclidine (PCP) (Neg) U Amphetamin/Meth Scrn (Neg) MDMA (Ecstasy) Screen (Neg) U Benzodiazepines Scrn (Neg) Huson (0.6-1.2) mmol/L Ur Cocaine Metabolite (Neg) U Marijuana (THC) Screen (Neg) Ethyl Alcohol mg/dL 175.5 H (0-3) mg/dl 01/06/20 Range/Units 03:45 WBC (4.8-10.8) K/uL RBC (4.7-6.1) M/uL Hgb (14.0-18.0) g/dL Hct (42-52) % MCV (80-100) fL MCH (25-34) pg MCHC (32-36) g/dL RDW Std Deviation (36.4-46.3) fL RDW Coeff of Will (11.5-14.5) % Plt Count (130-400) K/uL MPV (7.4-10.4) fL Immature Gran % (Auto) % Neut % (Auto) % Lymph % (Auto) % [place]olls % (Auto) % Eos % (Auto) % Baso % (Auto) % Immature Gran # (Auto) (0.00-0.02) K/uL Neut # (Auto) (1.4-6.5) K/uL Lymph # (Auto) (1.2-3.4) K/uL [place] # (Auto) (0.11-0.59) K/uL Eos # (Auto) (0-0.5) K/uL Baso # (Auto) (0-0.2) K/uL Sodium (136-145) mmol/L Potassium (3.5-5.1) mmol/L Chloride (98-107) mmol/L Carbon Dioxide (21-32) mmol/L Anion Gap (3-11) BUN (7-18) mg/dl Creatinine (0.6-1.4) mg/dl Est Cr Clr Drug Dosing ml/min Est GFR ( Amer) Est GFR (Non-Af Amer) BUN/Creatinine Ratio (10-20) Glucose (70-99) mg/dl Calcium (8.5-10.1) mg/dl Total Bilirubin (0.2-1) mg/dl AST (15-37) U/L ALT (12-78) U/L Alkaline Phosphatase (45-117) U/L Total Protein (6.4-8.2) gm/dl Albumin (3.4-5.0) gm/dl Globulin (2.5-4.0) gm/dl Albumin/Globulin Ratio (0.9-2) TSH (0.300-4.500) uIu/ml Urine Color Urine Appearance (Clear) Urine pH (4.5-7.5) Ur Specific [place] (1.000-1.030) Urine Protein (Negative) Urine Glucose (UA) (Negative) Urine Ketones (Negative) Urine Blood (Negative) Urine Nitrite (Negative) Urine Bilirubin (Negative) Urine Urobilinogen (Negative) Ur Leukocyte Esterase (Negative) Urine WBC (Auto) (0-5) /hpf Urine RBC (Auto) (0-4) /hpf U Hyaline Cast (Auto) (0-5) /lpf U Epithel Cells (Auto) (0-5) /lpf Urine Bacteria (Auto) (Negative) Salicylates (2.8-20) mg/dl Urine Opiates Screen (Neg) Ur Methadone, Qual (Neg) Acetaminophen (10-30) ug/ml Urine Barbiturates (Neg) Ur Phencyclidine (PCP) (Neg) U Amphetamin/Meth Scrn (Neg) MDMA (Ecstasy) Screen (Neg) U Benzodiazepines Scrn (Neg) Huson < 0.2 L (0.6-1.2) mmol/L Ur Cocaine Metabolite (Neg) U Marijuana (THC) Screen (Neg) Ethyl Alcohol mg/dL (0-3) mg/dl Administered Medications Discontinued Medications Acetaminophen (Tylenol) 1,000 mg PO NOW STA Stop: 01/06/20 03:32 Last Admin: 01/06/20 03:38 Dose: 1,000 mg Documented by: [id number] Huson Carbonate (Huson Carbonate) 300 mg PO NOW STA Stop: 01/06/20 05:13 Last Admin: 01/06/20 05:36 Dose: 300 mg Documented by: [id number] Ondansetron HCl (Zofran Odt) 4 mg PO NOW STA Stop: 01/06/20 04:28 Last Admin: 01/06/20 04:35 Dose: 4 mg Documented by: [id number] Discharge Plan Visit Data Chief Complaint: Alcohol Intoxication Stated Complaint: MENTAL HEALTH ED Provider: Steph Gresham Discharge Problem: Depression with suicidal ideation, Alcohol overdose Patient Disposition: Admitted As Inpatient Forms Stand Alone Forms: [facility] Prescriptions Prescriptions: No Action Vivitrol 380 mg suspension,extended rel recon 380 mg IM ONCE Qty: 1 RF: 0 sildenafil (pulm.hypertension) 20 mg tablet 40 mg PO DAILY PRN (Reason: sexual activity) RF: 0 lithium carbonate 600 mg capsule 600 mg PO HS Qty: 30 RF: 2 (DME) OneTouch Verio strip See Rx Instructions .ROUTE .MEDSUPPLY Qty: 100 RF: 2 (DME) lancets [OneTouch Delica Lancets] 33 gauge misc See Rx Instructions .ROUTE .MEDSUPPLY Qty: 100 RF: 3 lithium carbonate 300 mg capsule 300 mg PO QAM RF: 0 metformin 500 mg tablet 1,000 mg PO BID RF: 0 Vraylar 3 mg capsule 3 mg PO QAM RF: 0 lisinopril 5 mg tablet 5 mg PO QAM RF: 0 Invokana 300 mg tablet 300 mg PO QAM RF: 0 Referrals Referrals: Jean Pineda MD [Primary Care Provider] - Discharge Problem: Alcohol overdose Qualifiers: Encounter type: initial encounter Injury intent: intentional self-harm Qualified Code(s): T51.92XA - Toxic effect of unspecified alcohol, intentional self-harm, initial encounter
[2020-01-05 23:58] LABS: Basophils # (auto) 0.06 K/uL (0-0.2); Basophils % (auto) 0.4 %; Eosinophils # (auto) 0.35 K/uL (0-0.5); Eosinophils % (auto) 2.6 %; Hematocrit (blood only) 47.6 % (42-52); Immature Granulocytes # (auto) 0.06 K/uL (0.00-0.02); Immature Granulocytes % (auto) 0.4 %; Lymphocytes # (auto) 3.01 K/uL (1.2-3.4); Lymphocytes % (auto) 22.4 %; Mean Corpuscular Hgb Conc 35.7 g/dL (32-36); Mean Corpuscular Volume 81.2 fL (80-100); Mean Platelet Volume 9.1 fL (7.4-10.4); Monocytes # (auto) 0.75 K/uL (0.11-0.59); Monocytes % (auto) 5.6 %; Neutrophils % (auto) 68.6 %; Platelet Count 430 K/uL (130-400); RDW Coefficient of Variation 13.1 % (11.5-14.5); RDW Standard Deviation 38.6 fL (36.4-46.3); Red Blood Count 5.86 M/uL (4.7-6.1); White Blood Count 13.43 K/uL (4.8-10.8)
[2020-01-06 00:01] LABS: Appearance Urine Clear (Clear); Bacteria Urine Automated Negative (Negative); Bilirubin Urine Negative (Negative); Blood Urine Negative (Negative); Cast Urine Automated 0 /lpf (0-5); Color Urine Yellow; Epithelial Cell Urine Auto 0-5 /lpf (0-5); Glucose Urine UA 3+ (Negative); Ketones Urine Negative (Negative); Leukocyte Esterase Urine Negative (Negative); Nitrite Urine Negative (Negative); Protein Urine Trace (Negative); RBC Urine Automated 0-4 /hpf (0-4); Specific Gravity Urine 1.033 (1.000-1.030); Urobilinogen Urine Negative (Negative)
[2020-01-06 00:17] LABS: Albumin Level 4.2 gm/dl (3.4-5.0); BUN Creatinine Ratio 19.9 (10-20); Calcium 9.7 mg/dl (8.5-10.1); Creatinine Clr Calc Pharmacy 183.2 ml/min; Est GFR (African American) 129.7; Est GFR (Non-African American) 111.9; Potassium 3.8 mmol/L (3.5-5.1)
[2020-01-06 00:19] LABS: Amphetamines+Metham, Urine Neg (Neg); Barbiturates, Urine Neg (Neg); Benzodiazepine, Urine Neg (Neg); Cocaine, Urine Neg (Neg); MDMA (Ecstacy), Urine Neg (Neg); Methadone, Urine Neg (Neg); Opiate, Urine Neg (Neg); Phencyclidine, Urine Neg (Neg)
[2020-01-06 00:25] LABS: Acetaminophen < 2 ug/ml (10-30); Salicylate < 1.7 mg/dl (2.8-20)
[2020-01-06 00:28] LABS: Albumin Globulin Ratio 0.8 (0.9-2); Bilirubin,Total 0.3 mg/dl (0.2-1); Globulin 5.1 gm/dl (2.5-4.0); Thyroid Stimulating Hormone 1.91 uIu/ml (0.300-4.500); Total Protein 9.4 gm/dl (6.4-8.2)
[2020-01-06] MEDS ORDERED: ACETAMINOPHEN 500 MG TAB PO STA (03:31)
[2020-01-06] MEDS ORDERED: ONDANSETRON 4 MG OD TAB PO STA (04:27)
[2020-01-06] MEDS ORDERED: LITHIUM CARBONATE 300 MG TAB PO STA (05:12)
[2020-01-06] MEDS ORDERED: ALUMINUM/MAGNESIUM SUSP 30 ML UDC PO PRN (06:36)
[2020-01-06] MEDS ORDERED: BISMUTH SUBSALICYLATE PER ML OMNICELL CHARGE PO PRN (06:36)
[2020-01-06] MEDS ORDERED: LORazepam 1 MG TAB PO PRN (06:36)
[2020-01-06] MEDS ORDERED: SODIUM CHLORIDE 0.65% NA SOLN 45 ML (OCEAN) PRN (06:36)
[2020-01-06] MEDS ORDERED: LITHIUM CARBONATE 300 MG TAB PO SCH (09:00)
[2020-01-06] MEDS: METFORMIN HCL 500 MG TAB PO SCH ×2 (10:03→17:18)
[2020-01-06] MEDS: INVOKANA SCH (10:05)
[2020-01-06] MEDS: ACETAMINOPHEN 325 MG TAB PO PRN ×2 (10:06→17:18)
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
[2020-01-06] MEDS: PROPRANOLOL HCL 10 MG TAB PO PRN ×2 (11:32→19:38)
[2020-01-06] MEDS: MAGNESIUM HYDROXIDE SUSP 30 ML UDC PO PRN (11:32)
[2020-01-06] MEDS: lisinopriL 5 MG TAB PO SCH (11:33)
[2020-01-06] MEDS: DOCUSATE SODIUM 100 MG CAP PO SCH ×2 (13:03→21:35)
[2020-01-06] MEDS: LITHIUM CARBONATE 300 MG TAB PO SCH (21:35)
[2020-01-06] MEDS: NON-FORMULARY PATIENT'S OWN MED SCH (21:36)
[2020-01-07] MEDS: ACETAMINOPHEN 325 MG TAB PO PRN ×2 (06:16→19:33)
[2020-01-07] MEDS: METFORMIN HCL 500 MG TAB PO SCH ×2 (08:12→17:14)
[2020-01-07] MEDS: DOCUSATE SODIUM 100 MG CAP PO SCH ×2 (08:12→20:55)
[2020-01-07] MEDS: LITHIUM CARBONATE 300 MG TAB PO SCH ×2 (08:13→20:55)
[2020-01-07] MEDS: INVOKANA SCH (08:13)
[2020-01-07] MEDS: lisinopriL 5 MG TAB PO SCH (08:14)
[2020-01-07] MEDS ORDERED: VIVITROL IM ONE (11:00)
--- NOTE | 2020-01-07 11:37 | Psychiatric Progress Note ---
Date of Service January 07, 2020 Impression / Recommendations Impression 44-year-old male with a history of bipolar 1 and alcohol dependence who presents with depressive symptoms and suicidal ideation in the context of multiple stressors and relapse on alcohol after almost 1 year sober. He has had multiple contributing factors, including inability to get his Vivitrol shot this month, not working due to the pandemic, inadequate substance abuse treatment/age participation, depressive symptoms, poor communication/lack of support. Pt did admit to poor compliance with HS medications, as evidenced by an undetectable lithium level on admission. Pt is willing to continue regular outpatient psychiatry appointments, and is also willing for a referral for outpatient therapy. He agreed to a phone meeting with his , which is scheduled for this afternoon. Inpatient treatment is medically necessary due to the severity of symptoms and risk for suicide if discharged prematurely. (1) Bipolar 1 disorder: 01/05 -resume home dose of lithium (300 mg every morning and 600 mg nightly), and check a trough level after 5 days (01/11/2020). He states that his dose was being adjusted, and there was discussion that he may need a higher dos e, but he had not yet gotten a trough level on the 900 mg daily dose. -Resume home dose of cariprazine 3 mg at bedtime; reviewed FLP from 06/2019 (all normal except triglycerides 334), and hemoglobin A1c from 10/28/2019 (9.5, estimated average glucose 226). -Coordinate care with JOYCE Fagan at [facility], and request outpatient records. -Refer for higher level of services (outpatient therapy). -Family meeting with . -Encourage group attendance and participation, work on healthy coping skills and discharge safety plan. 01/06 - Continue current medication regimen: Rowley 300mg qAM and 600mg qHS; Vraylar 3mg qHS. Pt admits to difficulty remembering HS dosing of medications, was agreeable with focusing on behavioral techniques to improve medication compliance. Plans to discuss this further during phone meet with this afternoon - Social work attempting to schedule follow-up appointments through [facility] - Family meeting with via phone this afternoon - Continue to encourage group and recreational programming; 1:1 counseling as desired/indicated - Continue efforts toward development of an appropriate safety/discharge plan (2) Alcohol dependence: 01/05 -continue AWSS protocol, with Lorazepam as needed for withdrawal. Unlikely to have withdrawal as he reports drinking only 1 day after almost a year of sobriety. -Explore ways for patient to resume Vivitrol -states he has the prescription at his pharmacy, but [facility] is no longer seeing patients in person so he was unable to receive it. Will explore if his girlfriend can bring it here so it can be given. -Recovery protocol. -Encourage substance abuse treatment, including psychotherapy, IOP, AA. -Brief intervention was offered and accepted Intervention was greater than 5 min in length. Brief interventions include: 1. Assess Readiness to Quit, 2. Advise: Help Patient to Reduce or Abstain from Alcohol, 3. Agree: Set Specific, Feasible Goals, 4. Assist: Anticipate barriers, Problem-Solving Solutions. Social work to 5. Arrange: Referrals to appropriate treatment. Summary of intervention: The patient is in contemplation stage with regards to transtheoretical model of change. The patient is advised to decrease alcohol consumption due to depressant effects and risk of interactions with prescription medications. The patient agreed to continue to work on abstinence from alcohol, and will be provided with recovery materials to continue to education self on how to cope with their condition without drinking. 01/06 - Pt's brought patient's Vivtrol injection to the facility, and patient received the scheduled medication this morning (originally due 12/23, but was unable to make appointment) - Pt continues to report motivation to avoid alcohol consumption. Recognizes need for continued outpatient psychiatric services with focus on abstaining from alcohol consumption as a coping skill - Family meeting with via phone is scheduled for this afternoon - Continue to encourage patient's work on recovery protocol (3) PTSD (post-traumatic stress disorder): 01/05 -refer for outpatient therapy. 01/06 - [facility], awaiting appointment time (4) Constipation: 01/05 -patient reports taking an aoty-vbg-ceurxva stool softener at home, will offer Colace 100 mg twice daily here. Also has magnesium hydroxide daily as needed. Advised may request prune juice as well. Risk Factors Assessment Male: Yes : Yes Health Problems: Yes Mental Health Diagnoses: Yes Substance Use Disorders: Yes Previous Attempt: No Previous Psychiatric Hospitalization: No Hopelessness: Yes Smoker: No Protective Factors Assessment Yarsanism Beliefs: No : Yes Responsible for Young Children: Yes Employed: Yes Stable Relationships: Yes Good Rapport with Provider: Yes Interval History Identifying Information AMADA JACOBSEN is a 44-year-old M who goes by "Satya," lives in [place] with his , has a history of alcohol dependence, cocaine abuse, and bipolar disorder, and was admitted on 01/06/20 05:58 on a 201 voluntary commitment for suicidality in the context of relapse on alcohol. Chief Complaint "Um, today's a lot better than yesterday. I had a good conversation with one of the counselors last night." Review of Systems Notes Constitutional: denied Cardiovascular: denied Respiratory: denied Gastrointestinal: denied Neurological: denied Psychiatric: denies symptoms other than stated above Total of at least 10 systems reviewed, pertinent positives as above and in HPI. Sleep Information Total Hours of Sleep: 6.5 Sleep Comments: pt on q-15 minute checks Meal Information Percent Meal Consumed - Breakfast: 100 Percent Meal Consumed - Lunch: 100 Percent Meal Consumed - Dinner: 100 Subjective Subjective Patient was seen & assessed and interval progress reviewed with nursing and social work. Staff report the patient seemed to demonstrate more engagement with treatment after a 1:1 counseling session last evening. He is scheduled for a phone meeting with his this afternoon at 14:00. Pt has been working on his recovery protocol and is agreeable with the addition of outpatient therapy to his aftercare plan. Pt's did bring his Vivitrol injection to the hospital, and medication was administered this morning. Pt was seen today to assess progress since admission. Pt states he is feeling "a lot better than yesterday", admitting that he had some difficulty the day of his admission. Pt reports it has been difficult for him to learn about his intoxicated behavior prior to admission, as he admits "I guess I don't remember a lot of it, but it wasn't good." Pt admits that even outside of the context of alcohol consumption he experiences passive thoughts, but that he is now ready to address them directly. Pt states "I always avoided places like this. Like mental health stuff wasn't going to fix me. But I think that's exactly what I need." Pt states that he had a productive 1:1 conversation with the evening counselor last night and is feeling as though they were able to cover a lot. While patient continues to endorse hopelessness and worthlessness, he is feeling more motivated to participate in treatment. Pt denied active SI, but does state "I'd be ok if I didn't wake up tomorrow. I still don't want to live." Pt remains agreeable with outpatient therapy referrals, and desires to continue to see his psychiatric PA-C for medication management. Pt does admit that he has difficulty remembering his evening doses of medications. He was able to participate in conversation brainstorming ways to improve compliance and work medications into his usual routine. Pt states he would also like to discuss this with his as "I think she just thinks I'm doing it, but really I could use her help to remember." Pt reports desire to continue his current medication regimen with ongoing focus on ensuring compliance. Pt denied other needs or concerns at this time. He is awaiting a prn dose of propranolol as he is admittedly nervous about his phone meeting this afternoon. Physical Exam Psychiatric Orientation: alert, oriented x 3 and cooperative (and pleasant) Apperance: appropriately dressed (casually, wearing a white t-shirt and gym shorts), appropriately groomed and appeared stated age Eye Contact: good eye contact Motor Behavior: steady gait and station and no abnormal motor movements Speech: normal rate/rhythm/volume of speech Affect: + depressed affect and mood congruent with affect Mood: + depressed mood ("a lot better today", but admittedly still depressed) Thought Process: goal directed thought process, clear/coherent thought process and thought association intact Thought Content: reality based without delusions, + hopelessness, + worthlessness and + self deprecation Suicidal Thoughts: denies suicidal thoughts (but admits to passive thoughts "I'd be ok to not wake up tomorrow"), denies suicidal plan and denies suicidal intent Homicidal Thoughts: denies homicidal thoughts Hallucinations: no auditory hallucinations and no visual hallucinations Cognition: attention grossly intact and language grossly intact Insight: + fair insight Judgement: + fair judgement Vital Signs (Past 24 Hours) Last Vital Signs Temp 36.8 C 01/07/20 10:21 Pulse 87 01/07/20 10:21 Resp 18 01/07/20 10:21 BP 137/89 01/07/20 10:21 Pulse Ox 97 01/06/20 06:17 Results & Data ([facility]) Laboratory Results Laboratory Results - last 24 hr 01/07/20 01/07/20 07:58 07:59 POC Glucose 308 H* 223 H Current Inpatient Medications Current Inpatient Medications: Current Inpatient Medications Acetaminophen (Tylenol) 650 mg PO Q4H PRN PRN Reason: Headache or Minor Fever Stop: 02/05/20 06:35 Last Admin: 01/07/20 06:16 Dose: 650 mg Documented by: Al Hydrox/Mg Hydrox/Simethicone (Maalox) 30 ml PO Q4H PRN PRN Reason: GI Upset Stop: 02/05/20 06:35 Bismuth Subsalicylate (Kaopectate) 15 ml PO PRN PRN PRN Reason: Loose Stool Stop: 02/05/20 06:35 Docusate Sodium (Colace) 100 mg PO BID [facility] Stop: 02/05/20 11:44 Last Admin: 01/07/20 08:12 Dose: 100 mg Documented by: Hydroxyzine HCl (Vistaril) 50 mg PO HSZ PRN PRN Reason: Insomnia Stop: 02/05/20 06:35 Hydroxyzine HCl (Vistaril) 25 mg PO Q4H PRN PRN Reason: Anxiety Stop: 02/05/20 06:35 Lisinopril (Zestril) 5 mg PO QAM [facility] Stop: 02/05/20 10:44 Last Admin: 01/07/20 08:14 Dose: 5 mg Documented by: Rowley Carbonate (Rowley Carbonate) 600 mg PO HS [facility] Stop: 02/05/20 21:59 Last Admin: 01/06/20 21:35 Dose: 600 mg Documented by: Rowley Carbonate (Rowley Carbonate) 300 mg PO QAM [facility] Stop: 02/06/20 08:59 Last Admin: 01/07/20 08:13 Dose: 300 mg Documented by: Lorazepam (Ativan) 1 - 3 mg PO UD PRN; Protocol PRN Reason: EtoH Withdrawal AWSS 6-10+ Stop: 02/05/20 06:35 Magnesium Hydroxide (Milk Of Magnesia) 30 ml PO DAILY PRN PRN Reason: Constipation Stop: 02/05/20 06:35 Last Admin: 01/06/20 11:32 Dose: 30 ml Documented by: Metformin HCl (Glucophage) 1,000 mg PO BIDM [facility] Stop: 02/05/20 08:59 Last Admin: 03/31/20 08:12 Dose: 1,000 mg Documented by: Invokana~Non- Formulary Patient's Own Med 1 ea N/A DAILY ANGUS Stop: 02/05/20 08:59 Last Admin: 01/07/20 08:13 Dose: 1 tab Documented by: Non-Formulary Medication (Non-Formulary Patient's Own Med) 1 ea N/A HS ANGUS Stop: 02/05/20 21:59 Last Admin: 01/06/20 21:36 Dose: 1 cap Documented by: Propranolol HCl (Inderal) 10 mg PO BID PRN PRN Reason: Anxiety Stop: 02/05/20 08:59 Last Admin: 01/06/20 19:38 Dose: 10 mg Documented by: Sodium Chloride ([place] Nasal) 1 - 2 sprays NA PRN PRN PRN Reason: Nasal Dryness/Congestion Stop: 02/05/20 06:35 Mental Health & Subst Abuse Tx Psychiatrist Name of Psychiatrist: Dr. Chrissie Strickland Psychiatrist's Psychiatric Appointment [facility] [id number] [facility] [address] Therapist Name of Therapist: Prashanth Therapist's Therapy Appointment Comment: [id number] [place] [address] [employer] Worker Name of [employer] Worker: none Post Discharge Appointments Primary Care Physician Name Of Family Doctor: Dr. Jean Pineda Primary Care Provider Appointment Comment: [facility], [address], [place] [address]
[2020-01-07] MEDS: PROPRANOLOL HCL 10 MG TAB PO PRN (13:40)
[2020-01-07] MEDS: NON-FORMULARY PATIENT'S OWN MED SCH (20:57)
[2020-01-08] MEDS: DOCUSATE SODIUM 100 MG CAP PO SCH ×2 (08:18→21:11)
[2020-01-08] MEDS: lisinopriL 5 MG TAB PO SCH (08:18)
[2020-01-08] MEDS: METFORMIN HCL 500 MG TAB PO SCH ×2 (08:18→17:10)
[2020-01-08] MEDS: INVOKANA SCH (08:19)
[2020-01-08] MEDS: LITHIUM CARBONATE 300 MG TAB PO SCH ×2 (08:19→21:11)
[2020-01-08] MEDS: PROPRANOLOL HCL 10 MG TAB PO PRN (08:35)
--- NOTE | 2020-01-08 11:34 | Psychiatric Progress Note ---
Date of Service January 08, 2020 Impression / Recommendations Impression 44-year-old male with a history of bipolar 1 and alcohol dependence who presents with depressive symptoms and suicidal ideation in the context of multiple stressors and relapse on alcohol after almost 1 year sober. He has had multiple contributing factors, including inability to get his Vivitrol shot this month, not working due to the pandemic, inadequate substance abuse treatment/age participation, depressive symptoms, poor communication/lack of support. Pt did admit to poor compliance with HS medications, as evidenced by an undetectable lithium level on admission. Pt is willing to continue regular outpatient psychiatry appointments, and is also willing for a referral for outpatient therapy. He was unable to tolerate initial phone meeting with his , and therefore we were unable to discuss safety planning - repeat meeting scheduled for this afternoon. Inpatient treatment is medically necessary due to the severity of symptoms and risk for suicide if discharged prematurely. (1) Bipolar 1 disorder: 01/05 -resume home dose of lithium (300 mg every morning and 600 mg nightly), and check a trough level after 5 days (01/11/2020). He states that his dose was being adjusted, and there was discussion that he may need a higher dose, but he had not yet gotten a trough level on the 900 mg daily dose. -Resume home dose of cariprazine 3 mg at bedtime; reviewed FLP from 06/2019 (all normal except triglycerides 334), and hemoglobin A1c from 10/28/2019 (9.5, estimated average glucose 226). -Coordinate care with JOYCE Fagan at [facility], and request outpatient records. -Refer for higher level of services (outpatient therapy). -Family meeting with . -Encourage group attendance and participation, work on healthy coping skills and discharge safety plan. 01/06 - Continue current medication regimen: [place] 300mg qAM and 600mg qHS; Vraylar 3mg qHS. Pt admits to difficulty remembering HS dosing of medications, was agreeable with focusing on behavioral techniques to improve medication compliance. Plans to discuss this further during phone meet with this afternoon - Social work attempting to schedule follow-up appointments through [facility] - Family meeting with via phone this afternoon - Continue to encourage group and recreational programming; 1:1 counseling as desired/indicated - Continue efforts toward development of an appropriate safety/discharge plan 01/07 - Continue current medication regimen - lithium level ordered for 01/10 - Pt still requires coordination of aftercare appointments - referrals sent to [facility] with need to confirm appointments - Repeat family meeting with today, as patient was unable to tolerate meeting yesterday - Continue to discuss safety/discharge planning - Pt reporting recent outpatient testing for ADHD - stating he had been purchasing stimulant medications without prescriptions in order to treat his inattention, but is now planning to explore treatment options with his psychiatric prescriber. Phone call made to [facility] to update Chrissie Nj PA-C on this topic and ensure appropriate coordination of care (2) Alcohol dependence: 01/05 -continue AWSS protocol, with Lorazepam as needed for withdrawal. Unlikely to have withdrawal as he reports drinking only 1 day after almost a year of sobriety. -Explore ways for patient to resume Vivitrol -states he has the prescription at his pharmacy, but [facility] is no longer seeing patients in person so he was unable to receive it. Will explore if his girlfriend can bring it here so it can be given. -Recovery protocol. -Encourage substance abuse treatment, including psychotherapy, IOP, AA. -Brief intervention was offered and accepted Intervention was greater than 5 min in length. Brief interventions include: 1. Assess Readiness to Quit, 2. Advise: Help Patient to Reduce or Abstain from Alcohol, 3. Agree: Set Specific, Feasible Goals, 4. Assist: Anticipate barriers, Problem-Solving Solutions. Social work to 5. Arrange: Referrals to appropriate treatment. Summary of intervention: The patient is in contemplation stage with regards to transtheoretical model of change. The patient is advised to decrease alcohol consumption due to depressant effects and risk of interactions with prescription medications. The patient agreed to continue to work on abstinence from alcohol, and will be provided with recovery materials to continue to education self on how to cope with their condition without drinking. 01/06 - Pt's brought patient's Vivtrol injection to the facility, and patient received the scheduled medication this morning (originally due 12/23, but was unable to make appointment) - Pt continues to report motivation to avoid alcohol consumption. Recognizes need for continued outpatient psychiatric services with focus on abstaining from alcohol consumption as a coping skill - Family meeting with via phone is scheduled for this afternoon - Continue to encourage patient's work on recovery protocol 01/07 - Will discontinue AWSS monitoring at this time - pt aware - Continue to discuss support needed for success after discharge - Repeat meeting with to discuss care (3) PTSD (post-traumatic stress disorder): 01/05 -refer for outpatient therapy. 01/06 - Referral set to [facility] for outpatient therapy, awaiting appointment time (4) Constipation: 01/05 -patient reports taking an hcnz-yvc-rolefts stool softener at home, will offer Colace 100 mg twice daily here. Also has magnesium hydroxide daily as needed. Advised may request prune juice as well. Risk Factors Assessment Male: Yes : Yes Health Problems: Yes Mental Health Diagnoses: Yes Substance Use Disorders: Yes Previous Attempt: No Previous Psychiatric Hospitalization: No Hopelessness: Yes Smoker: No Protective Factors Assessment Uatsdin Beliefs: No : Yes Responsible for Young Children: Yes Employed: Yes Stable Relationships: Yes Good Rapport with Provider: Yes Interval History Identifying Information AMADA JACOBSEN is a 44-year-old M who goes by "Satya," lives in [place] with his , has a history of alcohol dependence, cocaine abuse, and bipolar diso rder, and was admitted on 01/06/20 05:58 on a 201 voluntary commitment for suicidality in the context of relapse on alcohol. Chief Complaint "Um, exhausted today. But overall better." Review of Systems Notes Constitutional: reports daytime fatigue Cardiovascular: denied Respiratory: denied Gastrointestinal: denied Neurological: denied Psychiatric: denies symptoms other than stated above Total of at least 10 systems reviewed, pertinent positives as above and in HPI. Sleep Information Total Hours of Sleep: 8 Sleep Comments: pt. received an hs prn of vistaril for sleep aid Meal Information Percent Meal Consumed - Breakfast: 100 Percent Meal Consumed - Lunch: 100 Percent Meal Consumed - Dinner: 100 Subjective Subjective Patient was seen & assessed and interval progress reviewed with treatment team. Staff report the patient has been participating in group programming. He was scheduled for a phone meeting with his yesterday afternoon, but reportedly stormed out of the meeting after he was challenged by his on his alcohol and stimulant use. Pt did process with social work after the meeting. Second meeting is scheduled for this afternoon, as staff was unable to complete discussion regarding safety and discharge planning. Pt was seen today to assess progress since admission. He admits he is feeling "exhausted today", but that overall his mood is improved. He states that he has been participating in groups and is finding it helpful to open up about his emotions with staff and peers. Pt does admit that the meeting with his yesterday was "terrible, I had to leave." Pt states that he did not appreciate his calling him out on his alcohol and stimulant use. Pt was agreeable with having an honest conversation with this provider regarding these topics. Pt states that he has been using 40-60mg of Adderall daily for "oh gosh, years..." in order to treat perceived symptoms of ADHD. Pt admits that he had been acquiring the medication without prescription, but claims that he did report this to his psychiatric PA- C. Pt reports that he was referred to [facility] for psychological testing, completed the test but his appointment to review results was reschedu led due to the COVID-19 outbreak. Pt states he is planning to discuss "getting the right medications, the right way" with his outpatient psychiatric prescriber. Pt was also more transparent about his alcohol use. He does admit "the last 3 weeks have been a lot of pressure." He admits to consuming "one beer and a small bottle of vodka" on a singular occasion about 2-3 weeks prior to admission. He states that "I called my sponsor right away and we discussed let's view it as a blip and keep going." Pt states that he again consumed "a fifth of vodka" the evening he presented to the ED. Pt denies any symptoms related to alcohol withdrawal and is willing to discontinue AWSS monitoring at this time. Pt denies active SI, but does admit to intermittent hopelessness. He is hopeful that today's meeting with his will go better, and is "missing her a lot." Pt is aware of our efforts to coordinate aftercare and is understanding of need to complete safety planning steps. He denies other needs or concerns from staff at this time. Physical Exam Psychiatric Orientation: alert, oriented x 3 and cooperative (and pleasant) Apperance: appropriately dressed, appropriately groomed and appeared stated age Eye Contact: good eye contact Motor Behavior: steady gait and station and no abnormal motor movements Speech: normal rate/rhythm/volume of speech Affect: + depressed affect (also appearing fatigued ) and mood congruent with affect Mood: + depressed mood (admits to ongoing depression, though mildly improved) Thought Process: goal directed thought process, clear/coherent thought process and thought association intact Thought Content: reality based without delusions, + hopelessness (ongoing intermittently ) and + guilt Suicidal Thoughts: denies suicidal thoughts and denies suicidal intent Homicidal Thoughts: denies homicidal thoughts Hallucinations: no auditory hallucinations and no visual hallucinations Cognition: attention grossly intact and language grossly intact Insight: + fair insight Judgement: + fair judgement Vital Signs (Past 24 Hours) Last Vital Signs Temp 36.4 C L 01/08/20 07:00 Pulse 75 01/08/20 07:00 Resp 18 01/08/20 07:00 BP 146/83 H 01/08/20 07:00 Pulse Ox 97 01/06/20 06:17 Results & Data ([facility]) Laboratory Results Laboratory Results - last 24 hr 01/08/20 08:02 POC Glucose 195 H Current Inpatient Medications Current Inpatient Medications: Current Inpatient Medications Acetaminophen (Tylenol) 650 mg PO Q4H PRN PRN Reason: Headache or Minor Fever Stop: 02/05/20 06:35 Last Admin: 01/07/20 19:33 Dose: 650 mg Documented by: Al Hydrox/Mg Hydrox/Simethicone (Maalox) 30 ml PO Q4H PRN PRN Reason: GI Upset Stop: 02/05/20 06:35 Bismuth Subsalicylate (Kaopectate) 15 ml PO PRN PRN PRN Reason: Loose Stool Stop: 02/05/20 06:35 Docusate Sodium (Colace) 100 mg PO BID ANGUS Stop: 02/05/20 11:44 Last Admin: 01/08/20 08:18 Dose: 100 mg Documented by: Hydroxyzine HCl (Vistaril) 50 mg PO HSZ PRN PRN Reason: Insomnia Stop: 02/05/20 06:35 Last Admin: 01/07/20 20:59 Dose: 50 mg Documented by: Hydroxyzine HCl (Vistaril) 25 mg PO Q4H PRN PRN Reason: Anxiety Stop: 02/05/20 06:35 Lisinopril (Zestril) 5 mg PO QAM ANGUS Stop: 02/05/20 10:44 Last Admin: 01/08/20 08:18 Dose: 5 mg Documented by: [place] Carbonate ([place] Carbonate) 600 mg PO HS ANGUS Stop: 02/05/20 21:59 Last Admin: 01/07/20 20:55 Dose: 600 mg Documented by: [place] Carbonate ([place] Carbonate) 300 mg PO QAM ANGUS Stop: 02/06/20 08:59 Last Admin: 01/08/20 08:19 Dose: 300 mg Documented by: Lorazepam (Ativan) 1 - 3 mg PO UD PRN; Protocol PRN Reason: EtoH Withdrawal AWSS 6-10+ Stop: 02/05/20 06:35 Magnesium Hydroxide (Milk Of Magnesia) 30 ml PO DAILY PRN PRN Reason: Constipation Stop: 02/05/20 06:35 Last Admin: 01/06/20 11:32 Dose: 30 ml Documented by: Metformin HCl (Glucophage) 1,000 mg PO BIDM ANGUS Stop: 02/05/20 08:59 Last Admin: 01/08/20 08:18 Dose: 1,000 mg Documented by: Invokana~Non- Formulary Patient's Own Med 1 ea N/A DAILY ANGUS Stop: 02/05/20 08:59 Last Admin: 01/08/20 08:19 Dose: 1 tab Documented by: Non-Formulary Medication (Non-Formulary Patient's Own Med) 1 ea N/A HS ANGUS Stop: 02/05/20 21:59 Last Admin: 01/07/20 20:57 Dose: 1 cap Documented by: Propranolol HCl (Inderal) 10 mg PO BID PRN PRN Reason: Anxiety Stop: 02/05/20 08:59 Last Admin: 01/08/20 08:35 Dose: 10 mg Documented by: Sodium Chloride ([place] Nasal) 1 - 2 sprays NA PRN PRN PRN Reason: Nasal Dryness/Congestion Stop: 02/05/20 06:35 Mental Health & Subst Abuse Tx Psychiatrist Name of Psychiatrist: Dr. Chrissie Strickland Psychiatrist's Psychiatric Appointment Comment: [id number] [facility] [place] [id number] Therapist Name of Therapist: Prashanth Therapist's Therapy Appointment Comment: [address] [place] [address] Desk Officer Name of Desk Officer: none Post Discharge Appointments Primary Care Physician Name Of Family Doctor: Dr. Jean Pineda Primary Care Provider Appointment Comment: [address] [facility], [address], [place] [address]
[2020-01-08] MEDS: NON-FORMULARY PATIENT'S OWN MED SCH (21:12)
[2020-01-09] MEDS: DOCUSATE SODIUM 100 MG CAP PO SCH ×2 (08:28→21:30)
[2020-01-09] MEDS: METFORMIN HCL 500 MG TAB PO SCH ×2 (08:29→17:13)
[2020-01-09] MEDS: LITHIUM CARBONATE 300 MG TAB PO SCH ×2 (08:29→21:30)
[2020-01-09] MEDS: INVOKANA SCH (08:30)
[2020-01-09] MEDS: lisinopriL 5 MG TAB PO SCH (08:30)
[2020-01-09] MEDS ORDERED: ONDANSETRON 4 MG OD TAB PO PRN (08:33)
[2020-01-09] MEDS: PROPRANOLOL HCL 10 MG TAB PO PRN (08:53)
--- NOTE | 2020-01-09 09:45 | Psychiatric Progress Note ---
Date of Service January 09, 2020 Impression / Recommendations Impression 44-year-old male with a history of bipolar 1 and alcohol dependence who presents with depressive symptoms and suicidal ideation in the context of multiple stressors and relapse on alcohol after almost 1 year sober. He has had multiple contributing factors, including inability to get his Vivitrol shot this month, not working due to the pandemic, inadequate substance abuse treatment/age participation, depressive symptoms, poor communication/lack of support. Pt did admit to poor compliance with HS medications, as evidenced by an undetectable lithium level on admission. Pt is willing to continue regular outpatient psychiatry appointments, and is also willing for a referral for outpatient therapy. He was unable to tolerate initial phone meeting with his , but did participate in a second meeting the next day - safety and discharge planning was reviewed. Mood remains stable and patient denies SI - will plan for discharge tomorrow unless there are significant changes. Patient requesting that cariprazine be discontinued due to continued GI upset - encouraged importance of compliance with lithium moving forward. Adjusted patient's lithium level to allow for labs to be drawn prior to his discharge. (1) Bipolar 1 disorder: 01/05 -resume home dose of lithium (300 mg every morning and 600 mg nightly), and check a trough level after 5 days (01/11/2020). He states that his dose was being adjusted, and there was discussion that he may need a higher dose, but he had not yet gotten a trough level on the 900 mg daily dose. -Resume home dose of cariprazine 3 mg at bedtime; reviewed FLP from 06/2019 (all normal except triglycerides 334), and hemoglobin A1c from 10/28/2019 (9.5, estimated average glucose 226). -Coordinate care with JOYCE Fagan at [facility], and request outpatient records. -Refer for higher level of services (outpatient therapy). -Family meeting with . -Encourage group attendance and participation, work on healthy coping skills and discharge safety plan. 01/06 - Continue current medication regimen: [place] 300mg qAM and 600mg qHS; Vraylar 3mg qHS. Pt admits to difficulty remembering HS dosing of medications, was agreeable with focusing on behavioral techniques to improve medication compliance. Plans to discuss this further during phone meet with this afternoon - Social work attempting to schedule follow-up appointments through [facility] - Family meeting with via phone this afternoon - Continue to encourage group and recreational programming; 1:1 counseling as desired/indicated - Continue efforts toward development of an appropriate safety/discharge plan 01/07 - Continue current medication regimen - lithium level ordered for 01/10 - Pt still requires coordination of aftercare appointments - referrals sent to [facility] with need to confirm appointments - Repeat family meeting with today, as patient was unable to tolerate meeting yesterday - Continue to discuss safety/discharge planning - Pt reporting recent outpatient testing for ADHD - stating he had been purchasing stimulant medications without prescriptions in order to treat his inattention, but is now planning to explore treatment options with his psychiatric prescriber. Phone call made to [facility] to update Chrissie Nj PA-C on this topic and ensure appropriate coordination of care 01/08 - Will discontinue cariprazine due to continued GI upset - lithium level moved to morning of 01/09 to allow for labs to be drawn prior to discharge - Pt reports taking propranolol routinely each morning - with second dose being utilized as needed. Inpatient orders updated to reflect this. - Finalize dates/times for [facility] appointments for medication management and individual therapy - Second family meeting via phone yesterday with - went better than initial meeting; denied safety concerns - marriage counseling recommended, both agreeable - Continued discussion regarding safety planning - formal written safety plan is completed - Psychiatric prescriber updated regarding stimulant abuse - continued outpatient discussion regarding possible ADHD as indicated (2) Alcohol dependence: 01/05 -continue AWSS protocol, with Lorazepam as needed for withdrawal. Unlikely to have withdrawal as he reports drinking only 1 day after almost a year of sobriety. -Explore ways for patient to resume Vivitrol -states he has the prescription at his pharmacy, but [facility] is no longer seeing patients in person so he was unable to receive it. Will explore if his girlfriend can bring it here so it can be given. -Recovery protocol. -Encourage substance abuse treatment, including psychotherapy, IOP, AA. -Brief intervention was offered and accepted Intervention was greater than 5 min in length. Brief interventions include: 1. Assess Readiness to Quit, 2. Advise: Help Patient to Reduce or Abstain from Alcohol, 3. Agree: Set Specific, Feasible Goals, 4. Assist: Anticipate barriers, Problem-Solving Solutions. Social work to 5. Arrange: Referrals to appropriate treatment. Summary of intervention: The patient is in contemplation stage with regards to transtheoretical model of change. The patient is advised to decrease alcohol consumption due to depressant effects and risk of interactions with prescription medications. The patient agreed to continue to work on abstinence from alcohol, and will be provided with recovery materials to continue to education self on how to cope with their condition without drinking. 01/06 - Pt's brought patient's Vivtrol injection to the facility, and patient received the scheduled medication this morning (originally due 12/23, but was unable to make appointment) - Pt continues to report motivation to avoid alcohol consumption. Recognizes need for continued outpatient psychiatric services with focus on abstaining from alcohol consumption as a coping skill - Family meeting with via phone is scheduled for this afternoon - Continue to encourage patient's work on recovery protocol 01/07 - Will discontinue AWSS monitoring at this time - pt aware - Continue to discuss support needed for success after discharge - Repeat meeting with to discuss care (3) PTSD (post-traumatic stress disorder): 01/05 -refer for outpatient therapy. 01/06 - Referral set to [facility] for outpatient therapy, awaiting appointment time (4) Constipation: 01/05 -patient reports taking an [id number] stool softener at home, will offer Colace 100 mg twice daily here. Also has magnesium hydroxide daily as needed. Advised may request prune juice as well. Risk Factors Assessment Male: Yes : Yes Health Problems: Yes Mental Health Diagnoses: Yes Substance Use Disorders: Yes Previous Attempt: No Previous Psychiatric Hospitalization: No Hopelessness: Yes Smoker: No Protective Factors Assessment Baptism Beliefs: No : Yes Responsible for Young Children: Yes Employed: Yes Stable Relationships: Yes Good Rapport with Provider: Yes Interval History Identifying Information AMADA JACOBSEN is a 44-year-old M who goes by "Satya," lives in [place] with his , has a history of alcohol dependence, cocaine abuse, and bipolar disorder, and was admitted on 01/06/20 05:58 on a 201 voluntary commitment for suicidality in the context of relapse on alcohol. Chief Complaint "Oh, sorry. I'm not sleeping, but stomach just hurts. I'm sitting this group out until I feel a little better." Review of Systems Notes Constitutional: reports ongoing fatigue Cardiovascular: denied Respiratory: denied Gastrointestinal: reports nausea, abdominal cramping/discomfort, perceived constipation, and an episode of vomiting last evening Neurological: denied Psychiatric: denies symptoms other than stated above Total of at least 10 systems reviewed, pertinent positives as above and in HPI. Sleep Information Total Hours of Sleep: 8 Sleep Comments: pt on q-15 minute checks Meal Information Percent Meal Consumed - Breakfast: 100 Percent Meal Consumed - Lunch: 100 Percent Meal Consumed - Dinner: 100 Subjective Subjective Patient was seen & assessed and interval progress reviewed with nursing and social work. Staff report the patient has continued to participate in group programming. He did have a repeat meeting with his yesterday via phone - as he was unable to tolerate the initial meeting. It was reported patient had several subsequent phone calls with her which he described as positive. It was reported the meeting was somewhat difficult, though denied any safety concerns. They reportedly continue to disagree about the patient's potential ADHD diagnosis and patient's requests for Adderall. Staff did report the patient did vomit after receiving his cariprazine last evening. Pt was seen today to assess progress since admission. He states that aside from continued nausea and abdominal discomfort, he is feeling "fine, I think a lot better." Pt states that his mood has remained stable and he continues to deny SI. Pt does admit to an episode of vomiting last evening, and is declining to continue cariprazine. Given his desire for this medication adjustment, we discussed the importance of compliance with his lithium, especially the evening dosing. Pt verbalized understanding and stated they were able to discuss this during his phone meeting yesterday. Pt states the meeting went well and that he is feeling supported by his . Pt reports that he is close to feeling ready to return home. We discussed that currently his lithium level is scheduled for 01/10 - he is agreeable with plan to move this to 01/09 to ensure his blood work is collected prior to discharge. He feels tomorrow would be an appropriate day for him to return home. He denies other needs or concerns and reports his plan for the day is to attend groups once he is feeling a bit better. Physical Exam Psychiatric Orientation: alert, oriented x 3 and cooperative Apperance: appropriately dressed, appropriately groomed and appeared stated age Eye Contact: good eye contact Motor Behavior: steady gait and station and no abnormal motor movements Speech: normal rate/rhythm/volume of speech Affect: euthymic affect and mood congruent with affect Mood: no depressed mood ("Fine, I think a lot better") Thought Process: goal directed thought process, clear/coherent thought process and thought association intact Thought Content: reality based without delusions; no hopelessness and no worthlessness Suicidal Thoughts: denies suicidal thoughts and denies suicidal intent Homicidal Thoughts: denies homicidal thoughts Hallucinations: no auditory hallucinations and no visual hallucinations Cognition: remote memory grossly intact, attention grossly intact and language grossly intact Insight: + fair insight Judgement: + fair judgement Vital Signs (Past 24 Hours) Last Vital Signs Temp 36.5 C 01/09/20 06:54 Pulse 90 01/09/20 06:55 Resp 18 01/09/20 06:54 BP 132/81 01/09/20 06:55 Pulse Ox 97 01/06/20 06:17 Results & Data ([facility]) Laboratory Results Laboratory Results - last 24 hr 01/09/20 07:57 POC Glucose 209 H Current Inpatient Medications Current Inpatient Medications: Current Inpatient Medications Acetaminophen (Tylenol) 650 mg PO Q4H PRN PRN Reason: Headache or Minor Fever Stop: 02/05/20 06:35 Last Admin: 01/07/20 19:33 Dose: 650 mg Documented by: Al Hydrox/Mg Hydrox/Simethicone (Maalox) 30 ml PO Q4H PRN PRN Reason: GI Upset Stop: 02/05/20 06:35 Bismuth Subsalicylate (Kaopectate) 15 ml PO PRN PRN PRN Reason: Loose Stool Stop: 02/05/20 06:35 Docusate Sodium (Colace) 100 mg PO BID ANGUS Stop: 02/05/20 11:44 Last Admin: 01/09/20 08:28 Dose: 100 mg Documented by: Hydroxyzine HCl (Vistaril) 50 mg PO HSZ PRN PRN Reason: Insomnia Stop: 02/05/20 06:35 Last Admin: 01/08/20 21:13 Dose: 50 mg Documented by: Hydroxyzine HCl (Vistaril) 25 mg PO Q4H PRN PRN Reason: Anxiety Stop: 02/05/20 06:35 Lisinopril (Zestril) 5 mg PO QAM ANGUS Stop: 02/05/20 10:44 Last Admin: 01/09/20 08:30 Dose: 5 mg Documented by: [place] Carbonate ([place] Carbonate) 600 mg PO HS ANGUS Stop: 02/05/20 21:59 Last Admin: 01/08/20 21:11 Dose: 600 mg Documented by: [place] Carbonate ([place] Carbonate) 300 mg PO QAM ANGUS Stop: 02/06/20 08:59 Last Admin: 01/09/20 08:29 Dose: 300 mg Documented by: Magnesium Hydroxide (Milk Of Magnesia) 30 ml PO DAILY PRN PRN Reason: Constipation Stop: 02/05/20 06:35 Last Admin: 01/06/20 11:32 Dose: 30 ml Documented by: Metformin HCl (Glucophage) 1,000 mg PO BIDM ANGUS Stop: 02/05/20 08:59 Last Admin: 01/09/20 08:29 Dose: 1,000 mg Documented by: Beti~Non- Formulary Patient's Own Med 1 ea N/A DAILY ANGUS Stop: 02/05/20 08:59 Last Admin: 01/09/20 08:30 Dose: 1 tab Documented by: Non-Formulary Medication (Non-Formulary Patient's Own Med) 1 ea N/A HS ANGUS Stop: 02/05/20 21:59 Last Admin: 01/08/20 21:12 Dose: 1 cap Documented by: Ondansetron HCl (Zofran Odt) 4 mg PO Q4H PRN PRN Reason: Nausea Stop: 02/08/20 08:32 Last Admin: 01/09/20 08:53 Dose: 4 mg Documented by: Propranolol HCl (Inderal) 10 mg PO BID PRN PRN Reason: Anxiety Stop: 02/05/20 08:59 Last Admin: 01/09/20 08:53 Dose: 10 mg Documented by: Sodium Chloride ([place] Nasal) 1 - 2 sprays NA PRN PRN PRN Reason: Nasal Dryness/Congestion Stop: 02/05/20 06:35 Mental Health & Subst Abuse Tx Psychiatrist Name of Psychiatrist: Jace Nj Psychiatrist's Date of Appointment with Psychiatrist: 01/29/20 Time of Appointment with Psychiatrist: 1:00 p.m. Psychiatric Appointment Comment: [address] [facility], [place] [address] Therapist Name of Therapist: Jace Crabtree Therapist's Therapy Appointment Comment: [address] [facility], [place] [address] Supervisor Floor Assembly Name of Supervisor Floor Assembly: none Post Discharge Appointments Primary Care Physician Name Of Family Doctor: Dr. Jean Pineda Primary Care Provider Appointment Comment: [address] [facility], [address], [place] [address] Contact Information Discharge Discharge Address: [address] [place] [id number]
[2020-01-09] MEDS ORDERED: PROPRANOLOL HCL 10 MG TAB PO PRN (09:46)
[2020-01-09] MEDS: MAGNESIUM HYDROXIDE SUSP 30 ML UDC PO PRN (12:06)
[2020-01-09] MEDS: ACETAMINOPHEN 325 MG TAB PO PRN (18:56)
[2020-01-10] MEDS: METFORMIN HCL 500 MG TAB PO SCH (07:36)
[2020-01-10] MEDS: lisinopriL 5 MG TAB PO SCH (07:36)
[2020-01-10] MEDS: DOCUSATE SODIUM 100 MG CAP PO SCH (07:37)
[2020-01-10] MEDS: LITHIUM CARBONATE 300 MG TAB PO SCH (07:37)
[2020-01-10] MEDS: INVOKANA SCH (07:37)
[2020-01-10] MEDS ORDERED: PROPRANOLOL HCL 10 MG TAB PO SCH (09:00)
--- NOTE | 2020-01-10 09:28 | Discharge Summary ---
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 appointment to have a scheduled Vivtrol injection on 12/24/2019 for the same reason significantly contributed to his relapse. The patient said that he realizes that, "at the end of the day," he has to accept personal responsibility for making the decision to drink when he had every reason to understand what would happen if he did. -Patient plans to see if he can participate in virtual AA meetings via Internet connections, such as [employer]. (3) PTSD (post-traumatic stress disorder): 01/05 -refer for outpatient therapy. 01/06 - Referral set to Jace for outpatient therapy, awaiting appointment time (4) Constipation: 01/05 -patient reports taking an azpo-xog-onaryxa stool softener at home, will offer Colace 100 mg twice daily here. Also has magnesium hydroxide daily as needed. Advised may request prune juice as well. 01/09 -The patient offers no complaints regarding constipation today, and has been advised to continue the above recommended interventions, as indicated. Mental Health & Subst Abuse Tx Psychiatrist Name of Psychiatrist: [facility] Date of Appointment with Psychiatrist: 01/29/20 Time of Appointment with Psychiatrist: 1:00 p.m. Psychiatric Appointment Comment: [address] [facility], [place] [address] Therapist Name of Therapist: J[facility] Therapist's Date of Therapist Appointment: 01/15/20 Time of Therapist Appointment: 10 am Therapy Appointment Comment: [address] [facility], [place] [address] Machine Shorthand Teacher Name of Machine Shorthand Teacher: none Post Discharge Appointments Primary Care Physician Name Of Family Doctor: Dr. Jean Pineda Primary Care Date of Appointment with PCP: 01/10/20 Time of Appointment with PCP: 3:00 p.m. Provider Appointment Comment: They will contact you via cell phone at this time Smoking Cessation Counseling Tobacco Cessation Medication Prescribed at Discharge: Not Applicable/Non-Smoker Contact Information Discharge Discharge Address: [address] [place] [id number] Discharge Plan Discharge Items Patient Disposition: Home - Self-Care Reason For Visit: BIPOLAR D/O, DEPRESSED Discharge Diagnosis: Bipolar Disorder Activity: Resume your previous activity Non-emergency contact: Primary Care Provider, Psychiatrist and Therapist Call non-emergency contact if: you have any medication questions and your symptoms worsen Follow-up/Referrals: Jean Pineda MD [Primary Care Provider] - Diet: Carb Consistent or DM2 Addtl Attending Provider Instructions: SPECIAL CARE INSTRUCTIONS: 1. Follow through with your scheduled aftercare appointments. If unable to keep an appointment, please call to reschedule. 2. Take your medication only as prescribed. Medication should not be changed or stopped without the approval of your doctor. In the event of worsening symptoms or concerns about side effects, contact your doctor immediately. 3. Utilize new healthy coping skills, anger management skills, and stress management skills learned during your hospitalization. Journal feelings and process them with a support person. Identify stressors or situations that may result in relapse, deterioration or inappropriate behaviors and develop a plan to deal with those issues. 4. If your coping skills are ineffective and you are in crisis, contact your outpatient providers for direction. If unable to reach your providers, please call the CAN HELP LINE AT or go to the closest Emergency Room. 5. Avoid alcohol and un-prescribed drugs. 6. You have been provided with the Mental Health Advance Directives Pamphlet for your review. AFTERCARE APPOINTMENTS: * Please call your insurance company prior to your scheduled appointment to confirm your aftercare providers are covered. Take your insurance information to your appointments. WHO TO CALL AND WHEN: Medical Emergencies: For questions or emergencies related to your hospital stay, please contact the Inpatient Behavioral Health Unit at [phone]. A home health clinician is on-call 01/05 for the Behavioral Health Unit for emergencies At any time you feel your situation is an emergency, you may also call 911 immediately. Your Doctors Instructions noted above were prepared by provider Matt Tolliver MD. Pending Studies at Discharge: No Studies:: [email or web address] Stand-Alone Forms: [facility], Smoking Cessation Medications and DC Order Prescriptions: New hydroxyzine HCl 25 mg Tablet 50 mg PO HSZ PRN (Reason: Sleep) Qty: 30 RF: 1 Continued Vivitrol 380 mg suspension,extended rel recon 380 mg IM ONCE Qty: 1 RF: 0 sildenafil (pulm.hypertension) 20 mg tablet 40 mg PO DAILY PRN (Reason: sexual activity) RF: 0 lithium carbonate 600 mg capsule 600 mg PO HS Qty: 30 RF: 2 (DME) OneTouch Verio strip See Rx Instructions .ROUTE .MEDSUPPLY Qty: 100 RF: 2 (DME) lancets [OneTouch Delica Lancets] 33 gauge misc See Rx Instructions .ROUTE .MEDSUPPLY Qty: 100 RF: 3 lithium carbonate 300 mg capsule 300 mg PO QAM RF: 0 metformin 500 mg tablet 1,000 mg PO BID RF: 0 propranolol 10 mg tablet See Rx Instructions .ROUTE .COMPLEX RF: 0 lisinopril 5 mg tablet 5 mg PO QAM RF: 0 Invokana 300 mg tablet 300 mg PO QAM RF: 0 Discontinued Vraylar 3 mg capsule 3 mg PO HS RF: 0 Discharge Orders: Discharge Order (Routine); Ordered 01/10/20 Ordered By: Matt Osullivan/Other Patient Handouts: Alcoholism Myths Facts Admission Data Admit Date/Time: 01/06/20 05:58 Attending Provider: Ginger Novak Admit Provider: Adair Morgan Primary Care Provider: Pro,Jean W. Other Interventions: Discharge Summary Assessment (RN) Last Done: 01/10/20 10:00 PSY Interdisciplinary Discharge Planning Last Done: 01/10/20 09:58 DC Date/Time DO NOT enter until pt leaves facility: 01/10/20 10:50 C[place] [address] D/C day mgmt > 30 min Patient Type Established History Expanded Problem Focused Exam Expanded Problem Focused Medical Decision Making Moderate Complexity Diagnoses Bipolar 1 disorder F31.9 Alcohol dependence F10.20 PTSD (post-traumatic stress disorder) F43.10 Constipation K59.00 Time Spent (min) 60
[2020-01-10] MEDS ORDERED: DESTROY THIS MEDICATION ONE (10:43)
[2020-01-10] MEDS: ACETAMINOPHEN 325 MG TAB PO PRN (10:44)
== END 2020-01-10 10:50 | disposition home or self-care (01) | DRG 885 ==
LOC: ED 22:42 → 3S 01-06 05:58

== ENCOUNTER 2024-08-19 13:10 | Observation (INO) ==
--- NOTE | 2024-08-19 14:34 | Emergency Department Note ---
Impression & Plan Diabetic foot infection, Leukocytosis, History of colon cancer, Acute hyperglycemia ED Provider Note NAME: AMADA JACOBSEN AGE: 48 SEX: M : 1975 ARRIVES VIA: Walk-In INFORMANT: Patient, significant other ED PROVIDER(S): Fidel Garcia MD CHIEF COMPLAINT: Foot pain, redness, outpatient referral MEDICAL DECISION MAKING: Patient presents due to concern for left great toe pain. IV was established and blood work was obtained.Patient was ordered IV morphine. Patient was ordered IV Rocephin and doxycycline. Patient with a white count of 15 with a normal platelet count virtually normal hemoglobin to 13.9. The patient's kidney function is unremarkable. Initial lactate of 2.4 procalcitonin negative. After further discussion with the patient patient believes that his pain is too significant in order to go home at this time. Given the patient's white count elevated lactate and signs of infection with hyperglycemia I did speak with the on-call hospitalist service and the patient was admitted by Dr. Hernández. Discussion w/ other healthcare providers: Dr. Hernández inpatient medicine service Prior /Outside records reviewed: None Differential diagnosis: Cellulitis, abscess, MRSA infection, DVT, necrotizing fasciitis, dermatitis, drug eruption, allergic reaction, as well as other pathologies were considered. Diagnostics, as interpreted by me: ECG: None Cardiac monitoring: An order was placed for continuous cardiac monitoring. The monitor shows a rate of 88 with sinus rhythm. Patient was placed on pulse oximetry Medical decision rules: None Imaging studies: I informally interpreted the patient's Foot x-ray does not show obvious fracture or dislocation with formal report to follow. HPI: Patient presents due to concern for foot pain and redness. The patient states that he injured it while in a swimming pool about 4 months ago and abraded the bottom of his left great toe. The patient states that he was doing local wound care on his own and was not having any issues until several days ago he noticed some increasing redness and pain. The patient does have a prior history of gout and thought that initially this may be what it is but seem to be worse and did have some associated drainage. Patient was seen at his outpatient providers and then referred here for further evaluation treatment. Patient does have a history of diabetes and does take medications and typically sugars run in the 160s. The patient denies any recurrence of trauma since 4 months ago. Patient does not follow with wound care. Patient states that he has had chills but no fevers. PAST MEDICAL HISTORY: See Below PAST SURGICAL HISTORY: See Below SOCIAL HISTORY: See Below HOME MEDICATIONS: See Below ALLERGIES: See Below VITALS: See Below PHYSICAL EXAMINATION: GENERAL: NAD, non-toxic. EYE EXAM: Normal conjunctiva. PERRL, no anisocoria and EOM's grossly intact w/o pain. OROPHARYNX: Moist mucus membranes, grossly normal dentition. NECK: Trachea midline, no stridor. Supple, no nuchal rigidity, no adenopathy, non-tender. No signs of meningismus. FROM of the neck with good chin to chest and neck extension. LUNGS: Clear to auscultation. Normal chest wall mechanics. HEART: NSR, no MRG. ABDOMEN: Abdomen soft, non-tender, no masses, no rebound or guarding. BACK: No CVA TTP. SKIN: No rashes and no bruising. UPPER EXTREMITIES: Upper extremities are grossly normal. LOWER EXTREMITIES: Left foot with redness and eschar at the plantar aspect of the left great toe, no surrounding fluctuance or drainage, mild pain from the distal foot to that left first digit. No pain to the other phalanges. NEURO EXAM: A&O x3, cranial nerves II-XII grossly intact, normal speech, moves all 4 extremities. Past Med/Surg History Problem List (Updated 08/20/24 @ 16:14 by Fidel Garcia MD) Acute hyperglycemia (Acute) History of colon cancer (Acute) Diabetic foot infection (Acute) Chest pain Malignant neoplasm of colon Mass of colon Colon cancer screening Encounter for pre-operative examination Type 2 diabetes mellitus Elevated LFTs Biceps tendonitis on left Status post shoulder surgery Calcific tendonitis of left shoulder COVID-19 (Acute) Gastritis Dietary counseling and surveillance Mixed hyperlipidemia Obesity Metabolic syndrome Abdominal pain, epigastric Gout Vomiting (Acute) Sudden onset of severe abdominal pain (Acute) Rotator cuff injury (Acute) Rectal bleed Nausea vomiting and diarrhea (Acute) Leukocytosis (Acute) Food poisoning (Acute 09/16/14) Elevated lactic acid level (Acute) Diarrhea (Acute) Altered mental status (Acute) GERD (gastroesophageal reflux disease) Hypertension Alcohol dependence LAST DRINK DECEMBER 2019 PTSD (post-traumatic stress disorder) Bipolar 1 disorder Medical History Hx of upper gastrointestinal hemorrhage in his 20's; cauterization done History of COVID-19 12-3-20 (LOSS OF TASTE/SMELL/FATIGUE) History of drug abuse HX of cocaine use, last use ~2017 Hx of gout Anxiety History of peptic ulcer disease Surgical History Hx of arthroscopy of shoulder History of esophagogastroduodenoscopy (EGD) History of tooth extraction History of wisdom tooth extraction S/P cholecystectomy Family History Grandmother (Maternal) Crohn's disease Father Diabetes Mother Thyroid cancer Other No family history of adverse response to anesthesia No pertinent family history Denies family history of Prostate cancer Myocardial infarction Colorectal cancer Social History Smoking Status: Never smoker Second Hand Exposure: Yes (in the past); Do You Dip or Chew Tobacco: No; Hx Alcohol Use: Yes Alcohol type: beer Hx Substance Use: No Preferred Language: Argentine Communication Ability: Effective Visual Impairment: No Limitations Hearing Ability: Normal Log Carrier Operator Required: No Beliefs That Will Affect Care: None Current Living Situation: Spouse Current Living Situation Comment: lives with and 2 kids current occupational status: employed 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; [employer] 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 Feels Safe at Home: Yes Assistive Devices: None Allergies Allergies Allergy/AdvReac Type Severity Reaction Status Date / Time Penicillins Allergy Mild RASH Verified 08/19/24 12:26 Home Meds Home Medications Medication Instructions Recorded Confirmed atomoxetine 100 mg capsule 100 mg PO UD 02/10/23 08/19/24 bupropion HCl 200 mg tablet,12 hr 200 mg PO QAM 02/10/23 08/19/24 sustained-release divalproex 250 mg tablet,extended 250 mg PO HS 02/10/23 08/19/24 release 24 hr hydroxyzine HCl 50 mg tablet 50 mg PO HS 02/10/23 08/19/24 lithium carbonate 300 mg capsule 300 mg PO HS 02/10/23 08/19/24 gabapentin 300 mg capsule 300 mg PO QDD 03/08/24 08/19/24 dextroamphetamine-amphetamine ER 20 mg PO DAILY 08/19/24 08/19/24 20 mg 24hr capsule,extend release hydroxyzine HCl 25 mg tablet 25 mg PO DIRECTED 08/19/24 08/19/24 Previous Rx's Medication Instructions Recorded promethazine 25 mg tablet 25 mg PO TID PRN nausea and 02/11/23 vomiting #15 tabs pen needle, diabetic 31 gauge x #100 ea 08/02/23 3/16" (BD Ultra-Fine Mini Pen Needle) OneTouch Delica Plus Lancet 33 #100 ea 08/09/23 gauge (lancets) OneTouch Verio Flex Start #1 ea 08/09/23 (blood-glucose meter) OneTouch Verio test strips (blood #100 ea 08/09/23 sugar diagnostic) FreeStyle Komal 2 Sensor (flash #2 ea 08/11/23 glucose sensor) metformin 500 mg tablet,extended 2,000 mg (4 x 500 mg) PO DAILY 11/02/23 release 24 hr #360 tabs omeprazole 40 mg capsule,delayed 40 mg PO DAILY #90 caps 12/13/23 release ondansetron 4 mg disintegrating 4 mg PO Q6H PRN nausea and 03/08/24 tablet vomiting #14 tabs promethazine 25 mg rectal 25 mg MT Q8H PRN nausea and 03/08/24 suppository vomiting #12 ea semaglutide 0.25 mg or 0.5 mg (2 0.25 mg (0.368 mL) subcut .weekly 03/19/24 mg/3 mL) subcutaneous pen injector #3 mL (Ozempic) canagliflozin 300 mg tablet 300 mg PO QAM #90 tabs 08/06/24 (Invokana) lisinopril 5 mg tablet 5 mg PO QAM #90 tabs 08/06/24 Results & Data (ED) Vital Signs Vital Signs - 24 hr 08/19/24 13:26 08/19/24 14:36 08/19/24 14:43 Temperature 37.0 C Temperature Source Oral Pulse Rate 95 H 90 Pulse Rate [Apical] 87 Respiratory Rate 19 14 Respiratory Effort / Characteristics Non-Labored Spontaneous Respiratory Depth Normal Blood Pressure 132/79 Blood Pressure [Right Arm] 134/97 Blood Pressure Mean 96 Blood Pressure Mean [Right Arm] 109 Blood Pressure Position [Right Arm] Semi-fowlers Pulse Oximetry 98 97 Oxygen Delivery Method Room Air Room Air Sepsis Recent Fever Within 48 Hours No Sepsis New/Unexplained Change in Mental Status N/A Sepsis Action Taken by Nursing No Action Required 08/19/24 16:00 Temperature Temperature Source Pulse Rate Pulse Rate [Apical] 85 Respiratory Rate 13 Respiratory Effort / Characteristics Non-Labored Spontaneous Respiratory Depth Normal Blood Pressure Blood Pressure [Right Arm] 149/84 H Blood Pressure Mean Blood Pressure Mean [Right Arm] 105 Blood Pressure Position [Right Arm] Semi-fowlers Pulse Oximetry 96 Oxygen Delivery Method Room Air Sepsis Recent Fever Within 48 Hours Sepsis New/Unexplained Change in Mental Status Sepsis Action Taken by Longterm Medications Current Medication List: was personally reviewed by me Laboratory Data Attestation: I reviewed the patient's lab results. 08/20/24 07:17 08/20/24 07:22 Lab Results 08/19/24 08/19/24 Range/Units 14:08 15:09 WBC 15.10 H (4.8-10.8) K/ul RBC 4.23 L (4.70-6.10) M/uL Hgb 13.9 L (14.0-18.0) g/dl Hct 38.7 L (42.0-52.0) % MCV 91.5 (80.0-100.0) fL MCH 32.9 (25.0-34.0) pg MCHC 35.9 (32.0-36.0) g/dL RDW Std Deviation 40.1 (36.4-46.3) fL RDW Coeff of Will 12.2 (11.5-14.5) % Plt Count 320 (130-400) K/uL MPV 9.1 L (9.4-12.4) fL Immature Gran % (Auto) 0.5 % Neut % (Auto) 82.7 % Lymph % (Auto) 8.3 % Gilchrist % (Auto) 7.7 % Eos % (Auto) 0.3 % Baso % (Auto) 0.5 % Neut # (Auto) 12.49 H (1.40-6.50) K/uL Lymph # (Auto) 1.26 (1.20-3.40) K/uL Gilchrist # (Auto) 1.16 H (0.11-0.59) K/uL Eos # (Auto) 0.04 (0.00-0.50) K/uL Baso # (Auto) 0.07 (0.00-0.20) K/uL Immature Gran # (Auto) 0.08 (0.01-0.20) K/uL Sodium 132 L (136-145) mmol/L Potassium 4.4 (3.5-5.1) mmol/L Chloride 96 L (98-107) mmol/L Carbon Dioxide 26 (21-32) mmol/L Anion Gap 10 (3-11) BUN 17 (6-23) mg/dl Creatinine 0.69 (0.6-1.4) mg/dl Est Cr Clr Drug Dosing 177.2 ml/min eGFR 112.74 BUN/Creatinine Ratio 24.6 H (10-20) Glucose 270 H (70-99(Fasting)) mg/dl Lactate 2.4 H* (0.4-2.0) mmol/L Calcium 10.0 (8.6-10.3) mg/dl Total Bilirubin 0.8 (0.2-1.0) mg/dl AST 25 (13-39) U/L ALT 50 (7-52) U/L Alkaline Phosphatase 86 (34-104) U/L Total Protein 7.9 (6.0-8.3) gm/dl Albumin 4.2 (3.4-5.0) gm/dl Globulin 3.7 (2.5-4.0) gm/dl Albumin/Globulin Ratio 1.1 (0.9-2) Procalcitonin 0.12 (0-0.5) ng/ml Administered Medications Acetaminophen (Acetaminophen 325 Mg Tab) 650 mg PO Q4H PRN PRN Reason: pain/fever Stop: 09/18/24 19:27 Last Admin: 08/20/24 12:26 Dose: 650 mg Documented By: Admin: 08/20/24 07:21 Dose: 650 mg Documented By: Admin: 08/19/24 21:44 Dose: 650 mg Documented By: CROW Amphetamine/Dextroamphetamine (Dextroamphetamine/Amphetamine Er 20 Mg Cap) 20 mg PO DAILY [facility] Stop: 09/03/24 08:59 Last Admin: 08/20/24 09:22 Dose: Not Given Documented By: SANTI Atomoxetine HCl (Atomoxetine Hcl 25 Mg Capsule) [facility] [place] Stop: 09/19/24 08:59 Last Admin: 08/20/24 08:24 Dose: Not Given Documented By: SANTI Bupropion HCl (Bupropion Sr 100 Mg Tabcr) 200 mg PO QAM [facility] Stop: 09/19/24 08:59 Last Admin: 08/20/24 08:20 Dose: 200 mg Documented By: SANTI Colchicine (Colchicine 0.6 Mg Tab) 0.6 mg PO BID [facility] Stop: 09/18/24 20:59 Last Admin: 08/20/24 08:21 Dose: 0.6 mg Documented By: Admin: 08/19/24 22:34 Dose: 0.6 mg Documented By: CROW Divalproex Sodium (Divalproex Extended Release 250 Mg Tabcr) 250 mg PO [facility] Stop: 09/18/24 20:59 Last Admin: 08/19/24 21:37 Dose: 250 mg Documented By: CROW Doxycycline Hyclate (Doxycycline Hyclate 100 Mg Cap) 100 mg PO BID [facility] Stop: 08/26/24 20:59 Last Admin: 08/20/24 08:22 Dose: 100 mg Documented By: Admin: 08/19/24 21:33 Dose: 100 mg Documented By: CROW Hydroxyzine HCl (Hydroxyzine Hcl 25 Mg Tab) 50 mg PO [facility] Stop: 09/18/24 20:59 Last Admin: 08/19/24 21:34 Dose: 50 mg Documented By: CROW Ceftriaxone Sodium (Rocephin) 2,000 mg in 50 mls @ 100 mls/hr IV Q24H [facility] Stop: 08/27/24 14:59 Last Infusion: 08/20/24 15:50 Dose: Infused Documented By: Admin: 08/20/24 15:18 Dose: 100 mls/hr Documented By: SANTI Insulin Aspart (Insulin Aspart Per Unit Charge) 0 units SC ACHS [facility] Stop: 09/18/24 20:59 Last Admin: 08/20/24 12:20 Dose: 14 units Documented By: SANTI Co-signed By: GUME Admin: 08/20/24 08:18 Dose: 13 units Documented By: SANTI Co-signed By: GUME Admin: 08/19/24 21:45 Dose: 8 units Documented By: CROW Co-signed By: LES Insulin Glargine (Lantus Per Unit Charge) 13 units SC BID ANGUS Stop: 09/19/24 08:59 Last Admin: 08/20/24 09:18 Dose: 13 units Documented By: SANTI Co-signed By: GUME Ketorolac Tromethamine (Ketorolac Tromethamine 15 Mg/Ml Vial) 15 mg IV Q6H PRN PRN Reason: Pain Stop: 08/24/24 22:12 Last Admin: 08/20/24 14:05 Dose: 15 mg Documented By: TOMER Co-signed By: CARLITA Admin: 08/20/24 07:50 Dose: 15 mg Documented By: Admin: 08/19/24 22:35 Dose: 15 mg Documented By: CROW Lisinopril (Lisinopril 5 Mg Tab) 5 mg PO QAM ANGUS Stop: 09/19/24 08:59 Last Admin: 08/20/24 08:22 Dose: 5 mg Documented By: SANTI Eckley Carbonate (Eckley Carbonate 300 Mg Tab) 300 mg PO HS ANGUS Stop: 09/18/24 20:59 Last Admin: 08/19/24 21:33 Dose: 300 mg Documented By: CROW Pantoprazole Sodium (Pantoprazole 40 Mg Tab) 40 mg PO DAILY ANGUS Stop: 09/19/24 08:59 Last Admin: 08/20/24 08:22 Dose: 40 mg Documented By: SANTI Discontinued Medications Doxycycline Hyclate (Doxycycline Hyclate 100 Mg Cap) 100 mg PO NOW STA Stop: 08/19/24 15:03 Last Admin: 08/19/24 15:16 Dose: 100 mg Documented By: KARTHIK Fentanyl Citrate (Fentanyl Citrate Pf 100 Mcg/2 Ml Vial) 100 mcg IV NOW STA Stop: 08/19/24 16:33 Last Admin: 08/19/24 17:03 Dose: 100 mcg Documented By: MMF Hydromorphone HCl (Hydromorphone Inj 1 Mg/Ml Syringe) 1 mg IV NOW STA Stop: 08/19/24 16:30 Last Admin: 08/19/24 17:38 Dose: Not Given Documented By: MMF Ceftriaxone Sodium (Rocephin) 2,000 mg in 50 mls @ 100 mls/hr IV NOW STA Stop: 08/19/24 15:31 Last Infusion: 08/19/24 16:00 Dose: Infused Documented By: Admin: 08/19/24 15:16 Dose: 100 mls/hr Documented By: MMF Sodium Chloride (Nss) 500 mls @ 999 mls/hr IV .Q31M ONE Stop: 08/19/24 16:38 Last Infusion: 08/19/24 17:43 Dose: Infused Documented By: Admin: 08/19/24 17:04 Dose: 999 mls/hr Documented By: KARTHIK Insulin Glargine (Lantus Per Unit Charge) 20 units SC NOW ONE Stop: 08/19/24 20:16 Last Admin: 08/19/24 21:46 Dose: 20 units Documented By: CROW Co-signed By: LES Ketorolac Tromethamine (Ketorolac Tromethamine 15 Mg/Ml Vial) 10 mg IV NOW ONE Stop: 08/19/24 16:33 Last Admin: 08/19/24 17:03 Dose: 10 mg Documented By: KARTHIK Morphine Sulfate (Morphine Sulfate 4 Mg/Ml 1 Ml Carp\\Vial) 4 mg IV NOW STA Stop: 08/19/24 15:03 Last Admin: 08/19/24 15:16 Dose: 4 mg Documented By: KARTHIK Ondansetron HCl (Ondansetron Inj 2 Mg/Ml 2 Ml Vial) 4 mg IV NOW STA Stop: 08/19/24 15:03 Last Admin: 08/19/24 15:16 Dose: 4 mg Documented By: KARTHIK Imaging Data Radiologist's Impression: Foot X-Ray 08/19/24 13:37 XR foot LT min 3V routine HISTORY: 48 years-old Male LEFT GREAT TOE INFECTION COMPARISON: None TECHNIQUE: 3 views of the left great toe FINDINGS: Mild soft tissue swelling of the forefoot. No acute fracture, dislocation, or opaque foreign body or definite osseous erosion. Marginal osteophytic spurring throughout the foot with mild osteoarthritis. Calcaneal enthesophytes are noted, large along the plantar surface. Arterial calcifications. IMPRESSION: Soft tissue swelling without acute osseous abnormality. ACT 112: Negative or not required by law. The above report was generated using voice recognition software. It may contain grammatical, syntax or spelling errors. Electronically signed by: Ivan Luis M.D. 08/19/2024 2:39 PM Discharge Plan Visit Data Chief Complaint: Foot Injury/Pain Stated Complaint: L FOOT PAIN AND SWELLING ED Provider: Fidel Garcia Discharge Problem: Diabetic foot infection, Leukocytosis, History of colon cancer, Acute hyperglycemia Patient Disposition: Admitted As Inpatient Discharge Instructions Interventions: ED Discharge Assessment Last Done: 08/19/24 20:38 Discharge Problem: Leukocytosis Qualifiers: Leukocytosis type: unspecified Qualified Code(s): D72.829 - Elevated white blood cell count, unspecified
--- NOTE | 2024-08-19 14:40 | XRay Report ---
XR foot LT min 3V routine HISTORY: 48 years-old Male LEFT GREAT TOE INFECTION COMPARISON: None TECHNIQUE: 3 views of the left great toe FINDINGS: Mild soft tissue swelling of the forefoot. No acute fracture, dislocation, or opaque foreign body or definite osseous erosion. Marginal osteophytic spurring throughout the foot with mild osteoarthritis. Calcaneal enthesophytes are noted, large along the plantar surface. Arterial calcifications. IMPRESSION: Soft tissue swelling without acute osseous abnormality. ACT 112: Negative or not required by law. The above report was generated using voice recognition software. It may contain grammatical, syntax o r spelling errors. Electronically signed by: Ivan Luis M.D. 08/19/2024 2:39 PM
[2024-08-19 14:42] LABS: Albumin Globulin Ratio 1.1 (0.9-2); Albumin Level 4.2 gm/dl (3.4-5.0); BUN Creatinine Ratio 24.6 (10-20); Bilirubin,Total 0.8 mg/dl (0.2-1.0); Creatinine Clr Calc Pharmacy 177.2 ml/min; Globulin 3.7 gm/dl (2.5-4.0); Potassium 4.4 mmol/L (3.5-5.1); Total Protein 7.9 gm/dl (6.0-8.3)
[2024-08-19 14:57] LABS: Basophils # (auto) 0.07 K/uL (0.00-0.20); Basophils % (auto) 0.5 %; Eosinophils # (auto) 0.04 K/uL (0.00-0.50); Eosinophils % (auto) 0.3 %; Hematocrit (blood only) 38.7 % (42.0-52.0); Hemoglobin 13.9 g/dl (14.0-18.0); Immature Granulocytes # (auto) 0.08 K/uL (0.01-0.20); Immature Granulocytes % (auto) 0.5 %; Lymphocytes # (auto) 1.26 K/uL (1.20-3.40); Lymphocytes % (auto) 8.3 %; Mean Corpuscular Hemoglobin 32.9 pg (25.0-34.0); Mean Corpuscular Hgb Conc 35.9 g/dL (32.0-36.0); Mean Corpuscular Volume 91.5 fL (80.0-100.0); Mean Platelet Volume 9.1 fL (9.4-12.4); Monocytes # (auto) 1.16 K/uL (0.11-0.59); Monocytes % (auto) 7.7 %; Neutrophils # (auto) 12.49 K/uL (1.40-6.50); Neutrophils % (auto) 82.7 %; Platelet Count 320 K/uL (130-400); RDW Coefficient of Variation 12.2 % (11.5-14.5); RDW Standard Deviation 40.1 fL (36.4-46.3); Red Blood Count 4.23 M/uL (4.70-6.10)
[2024-08-19] MEDS: cefTRIAXone SODIUM 2,000 MG/50 ML BAG IV STA (15:16)
[2024-08-19] MEDS: ONDANSETRON INJ 2 MG/ML 2 ML VIAL IV STA (15:16)
[2024-08-19] MEDS: MoRPHine SULFATE 4 MG/ML 1 ML CARP\\VIAL IV STA (15:16)
[2024-08-19] MEDS: DOXYCYCLINE HYCLATE 100 MG CAP PO STA (15:16)
--- NOTE | 2024-08-19 16:47 | History & Physical Report ---
Date of Service August 19, 2024 Assessment & Plan (1) Diabetic foot infection: Plan: Wound present for past 4-5 months, recently started to notice erythema and edema of the L great toe a 1-2 days ago with associated yellow drainage. - Admit - CBC: WBC 15.10, neutrophil predom., H/H 13.9/38.7 - CMP: Na 132, Cl 96 - Lactate 2.4; pending repeat - CXR soft tissue swelling without acute osseous abnormality - Blood cx pending - Pending CRP - Given Ceftriaxone + Doxy in ED - Pt is immunocompromised by chemotherapy and has reported yellow drainage from the wound -> Will cover w/ MRSA at this time - Continue ceftriaxone + doxycycline (2) Gout: Plan: Reported h/o gout, states that this is not the same pain however having hyperparasthesia and ongoing significant pain despite pain management with multiple medications - Not chronic management - Start colchicine 0.6mg BID (3) Malignant neoplasm of colon: Plan: Adenocarcinoma of sigmoid colon diagnosed January of 2024 - Follows with heme/onc; most recent visit 06/11 - On chemotherapy; last treatment was scheduled for tomorrow 08/20/2024 (4) Type 2 diabetes mellitus: Plan: H/o T2DM, not on insulin - At home regimen: Canagliflozin 300mg, metformin 2,000 mg daily, semaglutide-> Hold all - Most recent A1C 6.6% (11/24/2023) - Pending repeat A1c - SSI with target BSG range 110-140mg/dL, CF 20, carb ratio 10 - T2DM diet - BSG ACHS if eating - Adjust regimen as needed - Pharm glycemic consult placed (5) PTSD (post-traumatic stress disorder): Plan: Follows with Dr. Chrissie Fox ([facility] in [place]) (6) Bipolar 1 disorder: Plan: Follows with above - Divalproex 250mg qHS, [place] carbonate 300mg qHS, bupropion 200mg qAM, hydroxyzine 25mg Plan ADHD- Atomexetine 100 mg, Dextroamphetamine-amphetamine 20mg GERD- Omeprazole 40mg daily HTN- Lisinopril Dispo: Admit VTE prophylaxis: SCD Code: Full Admission and Anticipated Discharge Date Admission Date: 08/19/2024 History of Present Illness Chief Complaint: L great toe pain Primary Care Provider: Maranda Basedow, DO 48-year-old male presenting for left foot pain with associated erythema. ED course: CBC- WBC 15.10, neutrophils 12.49, H&H 13.9/38.7, MPV 9.1; CMP- Na 132, chloride 96, BUN/creatinine ratio 25.6; lactate 2.4, procalcitonin 0.12; foot x- ray soft tissue swelling without acute osseous abnormality. Provided with Rocephin and doxycycline in ED, as well as IVF and multiple pain medications. Patient is a 48-year-old male with PMHx colon cancer, T2DM, hyperlipidemia, H/o gout, GERD, hypertension, PTSD, and bipolar 1 disorder, who presents for ongoing left great toe pain. States that around March/April timeframe, patient was at a swimming pool where he injured the bottom of his left great toe, removing significant amount of skin from the bottom of the toe. States that he managed his own local wound care to the area, but just 1-2 days ago he began to have increasing amounts of pain and noticed erythema/edema to the left great toe. Additionally, around 1 day prior to arrival patient noted yellow drainage coming from the wound. States that any amount of sensation to the wound or surrounding area causes significant pain, rating it "20 out of 10" on the pain scale when asked to rated 1 out of 10. States it is a sharp pain that fluctuates, but comes as a "lightening bolt" type pain. Admits to chills, but no recorded fever. Unable to bear weight on he extremity. Using OTC pain medications. Reports he has a history of gout, but this is nothing like his last gout flare. Denies fever, chest pain, shortness of breath, headache, dizziness, syncope, abdominal pain, N/V/D/C, or other illnesses. Please see Dr. Hernández's attestation for adjustments/additions to treatment plan. Allergies Allergy/AdvReac Type Severity Reaction Status Date / Time Penicillins Allergy Mild RASH Verified 08/19/24 12:26 Home Medications Medication Instructions Recorded Confirmed Type atomoxetine 100 mg capsule 100 mg PO UD 02/10/23 08/19/24 History bupropion HCl 200 mg tablet,12 hr 200 mg PO QAM 02/10/23 08/19/24 History sustained-release divalproex 250 mg tablet,extended 250 mg PO HS 02/10/23 08/19/24 History release 24 hr hydroxyzine HCl 50 mg tablet 50 mg PO HS 02/10/23 08/19/24 History lithium carbonate 300 mg capsule 300 mg PO HS 02/10/23 08/19/24 History promethazine 25 mg tablet 25 mg PO TID PRN nausea and 02/11/23 08/19/24 Rx vomiting #15 tabs pen needle, diabetic 31 gauge x #100 ea 08/02/23 08/19/24 Rx 3/16" (BD Ultra-Fine Mini Pen Needle) OneTouch Delica Plus Lancet 33 #100 ea 08/09/23 08/19/24 Rx gauge (lancets) OneTouch Verio Flex Start #1 ea 08/09/23 08/19/24 Rx (blood-glucose meter) OneTouch Verio test strips (blood #100 ea 08/09/23 08/19/24 Rx sugar diagnostic) FreeStyle [place]omal 2 Sensor (flash #2 ea 08/11/23 08/19/24 Rx glucose sensor) metformin 500 mg tablet,extended 2,000 mg (4 x 500 mg) PO DAILY 11/02/23 08/19/24 Rx release 24 hr #360 tabs omeprazole 40 mg capsule,delayed 40 mg PO DAILY #90 caps 12/13/23 08/19/24 Rx release gabapentin 300 mg capsule 300 mg PO QDD 03/08/24 08/19/24 History ondansetron 4 mg disintegrating 4 mg PO Q6H PRN nausea and 03/08/24 08/19/24 Rx tablet vomiting #14 tabs promethazine 25 mg rectal 25 mg MO Q8H PRN nausea and 03/08/24 08/19/24 Rx suppository vomiting #12 ea semaglutide 0.25 mg or 0.5 mg (2 0.25 mg (0.368 mL) subcut .weekly 03/19/24 08/19/24 Rx mg/3 mL) subcutaneous pen injector #3 mL (Ozempic) canagliflozin 300 mg tablet 300 mg PO QAM #90 tabs 08/06/24 08/19/24 Rx (Invokana) lisinopril 5 mg tablet 5 mg PO QAM #90 tabs 08/06/24 08/19/24 Rx dextroamphetamine-amphetamine ER 20 mg PO DAILY 08/19/24 08/19/24 History 20 mg 24hr capsule,extend release hydroxyzine HCl 25 mg tablet 25 mg PO DIRECTED 08/19/24 08/19/24 History Past Med/Surg History Problem List (Updated 08/19/24 @ 17:19 by Sally Dove PA-C) Diabetic foot infection Chest pain Malignant neoplasm of colon Mass of colon Colon cancer screening Encounter for pre-operative examination Type 2 diabetes mellitus Elevated LFTs Biceps tendonitis on left Status post shoulder surgery Calcific tendonitis of left shoulder COVID-19 (Acute) Gastritis Dietary counseling and surveillance Mixed hyperlipidemia Obesity Metabolic syndrome Abdominal pain, epigastric Gout Vomiting (Acute) Sudden onset of severe abdominal pain (Acute) Rotator cuff injury (Acute) Rectal bleed Nausea vomiting and diarrhea (Acute) Leukocytosis (Acute) Food poisoning (Acute 09/16/14) Elevated lactic acid level (Acute) Diarrhea (Acute) Altered mental status (Acute) GERD (gastroesophageal reflux disease) Hypertension Alcohol dependence LAST DRINK DECEMBER 2019 PTSD (post-traumatic stress disorder) Bipolar 1 disorder Medical History Hx of upper gastrointestinal hemorrhage in his 20's; cauterization done History of COVID-19 12-- (LOSS OF TASTE/SMELL/FATIGUE) History of drug abuse HX of cocaine use, last use ~2017 Hx of gout Anxiety History of peptic ulcer disease Surgical History Hx of arthroscopy of shoulder History of esophagogastroduodenoscopy (EGD) History of tooth extraction History of wisdom tooth extraction S/P cholecystectomy Family History Grandmother (Maternal) Crohn's disease Father Diabetes Mother Thyroid cancer Other No family history of adverse response to anesthesia No pertinent family history Denies family history of Prostate cancer Myocardial infarction Colorectal cancer Social History Smoking Status: Never smoker Second Hand Exposure: Yes (in the past); Do You Dip or Chew Tobacco: No; Hx Alcohol Use: Yes (weekends) Hx Substance Use: No Preferred Language: Qatari Communication Ability: Effective Visual Impairment: No Limitations Hearing Ability: Normal Revenue Stamp Cutter Required: No Beliefs That Will Affect Care: None Current Living Situation: Spouse and Family Current Living Situation Comment: lives with and 2 kids current occupational status: employed 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 Skin: Warm and dry, no additional rashes/lesions; L great toe with crusted lesion on bottom, central black eschar; erythematous and edematous; pain to very light touch Head: Normocephalic, atraumatic Eyes: PERRL, conjunctivae clear, sclera non-icteric ENT: External ear and ear canal without swelling; nose atraumatic; good dentition, tongue normal appearance, pharynx normal without tonsillar swelling or exudate Neck: Supple, no LAD; no JVD Cardio: RRR, no M/G/R, S1 and S2 normal Resp: Chest wall symmetric, normal respiratory effort; No respiratory distress, Lungs CTA in all lobes bilaterally, no wheezes, rales, or rhonchi Abdomen: Soft, symmetric, nontender; Surgical scars noted on abdomen; no distention; No masses or hepatosplenomegaly MSK: No deformities, full ROM throughout; sensation normal to UE/LE; pulses palpable and equal; no edema. Neuro: Awake, alert; CN intact Psych: Appropriate mood and affect; good judgement and insight. is present in room at time of visit. Results & Data Results & Data Vital Signs (Past 12 Hours) Vital Signs Temp Pulse Pulse Resp BP BP Pulse Ox 08/19/24 14:43 90 08/19/24 14:36 87 14 134/97 97 08/19/24 13:26 37.0 C 95 H 19 132/79 98 O2 Del Method 08/19/24 14:43 08/19/24 14:36 Room Air 08/19/24 13:26 Room Air Laboratory Results 08/19/24 15:09 Aerobic Blood Culture - Pending Blood Anaerobic Blood Culture - Pending 08/19/24 14:08 Aerobic Blood Culture - Pending Blood Anaerobic Blood Culture - Pending 08/19/24 08/19/24 15:09 14:08 WBC 15.10 H RBC 4.23 L Hgb 13.9 L Hct 38.7 L MCV 91.5 MCH 32.9 MCHC 35.9 RDW Std Deviation 40.1 RDW Coeff of Will 12.2 Plt Count 320 MPV 9.1 L Immature Gran % (Auto) 0.5 Neut % (Auto) 82.7 Lymph % (Auto) 8.3 [place] % (Auto) 7.7 Eos % (Auto) 0.3 Baso % (Auto) 0.5 Neut # (Auto) 12.49 H Lymph # (Auto) 1.26 [place] # (Auto) 1.16 H Eos # (Auto) 0.04 Baso # (Auto) 0.07 Immature Gran # (Auto) 0.08 Sodium 132 L Potassium 4.4 Chloride 96 L Carbon Dioxide 26 Anion Gap 10 BUN 17 Creatinine 0.69 Est Cr Clr Drug Dosing 177.2 eGFR 112.74 BUN/Creatinine Ratio 24.6 H Glucose 270 H Lactate 2.4 H* Calcium 10.0 Total Bilirubin 0.8 AST 25 ALT 50 Alkaline Phosphatase 86 Total Protein 7.9 Albumin 4.2 Globulin 3.7 Albumin/Globulin Ratio 1.1 Procalcitonin 0.12 Diagnostic Findings Foot X-Ray 08/19/24 13:37 XR foot LT min 3V routine HISTORY: 48 years-old Male LEFT GREAT TOE INFECTION COMPARISON: None TECHNIQUE: 3 views of the left great toe FINDINGS: Mild soft tissue swelling of the forefoot. No acute fracture, dislocation, or opaque foreign body or definite osseous erosion. Marginal osteophytic spurring throughout the foot with mild osteoarthritis. Calcaneal enthesophytes are noted, large along the plantar surface. Arterial calcifications. IMPRESSION: Soft tissue swelling without acute osseous abnormality. ACT 112: Negative or not required by law. The above report was generated using voice recognition software. It may contain grammatical, syntax or spelling errors. Electronically signed by: Ivan Luis M.D. 08/19/2024 2:39 PM Code Status & VTE Plan Code Status Full Supervising Physician Co-Signing Physician Notes Patient seen and examined, chart reviewed, case discussed with Sally Dove PA-C and I agree with the assessment and plan as above except as otherwise noted Labs and images reviewed 48-year-old male past medical history of gout, diabetes who presents with worsening pain and redness of his left foot greatest around the hallux over the last several days. Did have an abrasion on the bottom of his left hallux from swimming earlier but had done okay until several days ago. Was referred to the ER for treatment of a diabetic foot infection. X-ray does not show evidence of underlying osteomyelitis. He does have a leukocytosis, elevated lactate on admission. He is normotensive, he is not tachycardic, and he is not tachypneic or febrile initial assessment. Given lactate and DFI was recommended for overnight IV antibiotics and monitoring prior to transition to orals. Patient received 500 cc of NSS, and orals were encouraged in the setting of critical IV fluid shortage. Rocephin/Doxy were continued with targeted with Doxy/cefpodoxime available as discharge agents if improving. Agree with continuing Doxy as patient had some creamy drainage potentially concerning for MRSA although no sample suitable for cultures available at time of admitting assessment. In addition patient has a history of gout and has a significant amount of hyperesthesia and erythema with pain even to light touch and in the hallux suspicious for possible superimposed gout flare. Agree with treatment with colchicine twice daily to cover for potential gout. CRP added and trended. Repeat lactate added. Agree with above. PG Care Time/CCT Total # of Minutes Spent Total Time Spent with Patient: Total time spent is greater than 50% in coordination of care (as documented) at patient's floor/unit and/or counseling patient: Coding Level of Care Code None Diagnoses Diabetic foot infection E11.628; L08.9 Gout M10.9 Malignant neoplasm of colon C18.9 Type 2 diabetes mellitus E11.9 PTSD (post-traumatic stress disorder) F43.10 Bipolar 1 disorder F31.9
[2024-08-19] MEDS: KETOROLAC TROMETHAMINE 15 MG/ML VIAL IV ONE (17:03)
[2024-08-19] MEDS: fentaNYL citrate PF 100 MCG/2 ML VIAL IV STA (17:03)
[2024-08-19] MEDS: SODIUM CHLORIDE 0.9% 500 ML IV ONE (17:04)
[2024-08-19] MEDS: HYDROmorphone INJ 1 MG/ML SYRINGE IV STA (17:38)
--- NOTE | 2024-08-19 18:55 | Billing Data ---
Date of Service August 19, 2024 Coding Level of Care Code 68494 INT INP/OBS CARE
[2024-08-19] MEDS ORDERED: PHARMACY GLYCEMIC MGMT CONSULT PRN (19:28)
[2024-08-19] MEDS ORDERED: GLUCOSE 40% GEL 15 GM TUBE PO PRN (19:28)
[2024-08-19] MEDS ORDERED: ONDANSETRON INJ 2 MG/ML 2 ML VIAL IV PRN (19:28)
[2024-08-19] MEDS ORDERED: hydrOXYzine HCl 25 MG TAB PO SCH (19:28)
[2024-08-19] MEDS ORDERED: CARBOHYDRATES FOR HYPOGLYCEMIA PO PRN (19:28)
[2024-08-19] MEDS ORDERED: GLUCOSE 10 TAB/TUBE PO PRN (19:28)
[2024-08-19] MEDS ORDERED: GLUCAGON FOR INJ 1 MG VIAL SQ PRN (19:28)
[2024-08-19] MEDS ORDERED: DEXTROSE 50% 50 ML SYRINGE IV PRN (19:28)
[2024-08-19] MEDS: DOXYCYCLINE HYCLATE 100 MG CAP PO SCH (21:33)
[2024-08-19] MEDS: LITHIUM CARBONATE 300 MG TAB PO SCH (21:33)
[2024-08-19] MEDS: hydrOXYzine HCl 25 MG TAB PO SCH (21:34)
[2024-08-19] MEDS: DIVALPROEX EXTENDED RELEASE 250 MG TABCR PO SCH (21:37)
[2024-08-19] MEDS: ACETAMINOPHEN 325 MG TAB PO PRN (21:44)
[2024-08-19] MEDS: INSULIN ASPART PER UNIT CHARGE SC SCH (21:45)
[2024-08-19] MEDS: LANTUS PER UNIT CHARGE SC ONE (21:46)
[2024-08-19] MEDS: COLCHICINE 0.6 MG TAB PO SCH (22:34)
[2024-08-19] MEDS: KETOROLAC TROMETHAMINE 15 MG/ML VIAL IV PRN (22:35)
[2024-08-20] MEDS: buPROPion SR 100 MG TABCR PO SCH (08:20)
[2024-08-20] MEDS: PANTOprazole 40 MG TAB PO SCH (08:22)
[2024-08-20] MEDS: lisinopril 5 MG TAB PO SCH (08:22)
[2024-08-20] MEDS: ATOMOXETINE HCL 25 MG CAPSULE PO SCH (08:24)
--- NOTE | 2024-08-20 08:27 | Hospitalist Progress Note ---
Date of Service August 20, 2024 Assessment & Plan (1) Diabetic foot infection: Plan: Wound present for past 4-5 months, recently started to notice erythema and edema of the L great toe a 1-2 days ago with associated yellow drainage. - Admit - CBC: WBC 15.10, neutrophil predom., H/H 13.9/38.7 - CMP: Na 132, Cl 96 - Lactate 2.4; pending improved to 1.7 - XR w/ soft tissue swelling without acute osseous abnormality , no evidence for osteo - Blood cx pending - Pending CRP - Given Ceftriaxone + Doxy in ED - Pt is immunocompromised by chemotherapy and has reported yellow drainage from the wound -> Will cover w/ MRSA at this time - Continue ceftriaxone + doxycycline 08/20 WBC 15k--> 10.9k. CRP added and elevated to 16.5 and will trend w/ treatment Continue IV abx : Ceftriaxone/Doxy Continue colchicine 0.6mg BID for suspected superimposed gout (will check level w/ AM labs as well -- 6.0) given significant tenderness out of proportion to exam (reports improving) Continue pain control, elevation-- -reports Toradol effective for pain control Blood cultures pending (port site looks good. Pt already notified his oncology team about rescheduling his chemotherapy) Pain control, elevation. RN to provide w/ surgical shoe to offload pressure when ambulating. Surface cx if occurs (no drainage on exam today, just calloused appearance) A1c 8.1, will need f/u about DM. Educator consult placed Monitor labs/exam in AM, possible dc on Doxy/Cefpodoxime if continued improvement in AM Of note, while xray not noting osteo, does note arterial calcifications. +pulses on exam but discussed with patient if ongoing issues with wound healing should consider arterial studies. (2) Gout: Plan: Reported h/o gout, states that this is not the same pain however having hyperaesthesia and ongoing significant pain despite pain management with multiple medications Not on chronic management w/ allopurinol STARTED COLCHICINE PO BID as above, continued -- continue at dc, plan for f/u PCP about allopurinol (3) Malignant neoplasm of colon: Plan: Adenocarcinoma of sigmoid colon diagnosed January of 2024 - Follows with heme/onc; most recent visit 06/11 [facility] - On chemotherapy; last treatment was scheduled for tomorrow 08/20/2024 -- rescheduled as above (4) Type 2 diabetes mellitus: Plan: H/o T2DM, not on insulin At home regimen: Canagliflozin 300mg, metformin 2,000 mg daily, semaglutide (PATIENT REPORTS NOT ON OZEMPIC SINCE DX COLON CA) Home meds on hold, pharmacy consulted for glycemic management A1c WORSE 8.1, as above off ozempic since colon ca diagnosis Insulin 13u BID w/ SSI per pharmacy -- adjustments appreciated for better glycemic control for wound healing DM educator consulted Will need outpt f/u, ?once daily insluin for better control pending inpatient needs? Elly BSGs (5) PTSD (post-traumatic stress disorder): Plan: Follows with Dr. Chrissie Fox ([facility] in [place]) Mood stable on exam (6) Bipolar 1 disorder: Plan: Follows with above - Divalproex 250mg qHS, [place] carbonate 300mg qHS, bupropion 200mg qAM, hydroxyzine 25mg [place] level <0.1 but no hx seizure and will continue current dose Plan ADHD- Atomexetine 100 mg, Dextroamphetamine-amphetamine 20mg GERD- Omeprazole 40mg daily HTN- Lisinopril Dispo: continued inpatient stay on IV antibiotics/colchicine. Possible dc on PO DOxy/Cefpodoxime in AM. Consideration for arterial studies if ongoing healing issues. Will need f/u about DM treatment/possible insulin Admission and Anticipated Discharge Date Admission Date: August 19, 2024 Supervising Physician Co-Signing Physician Notes The patient was seen by me. The chart was reviewed. Case discussed with JOYCE Hayward. Agree with assessment and plan Subjective Evaluated this morning, resting in bed. Foot elevated. Pain controlled with ordered medications. Appears less red/swollen. Reports had drainage, if squeezed could re-create. Unsuccessful but discussed if occurs will have nursing send swab for culture/analysis. Blood cultures pending. Port looks good. He notified his oncologist of inpatient stay as was to get chemo today, last treatment 2 weeks ago and is on FOLFOX treatment. Prior on ozempic until found the mass in his colon, no longer on. Discussed continued stay on antibiotics, colchicine and monitoring exam. Pulses present but discussed if ongoing issues would consider vascular studies. Is on gabapentin 300mg TID at baseline, reports toradol effective and doesn't want to be over medicated. Wears sketchers, discussed getting surgical shoe to take pressure off and to try heel weight bearing to prevent issues. RN to provide. Questions/concerns addressed at this time. Results & Data Results & Data Vital Signs (Past 12 Hours) Vital Signs Temp Pulse Pulse Pulse Resp BP BP 08/20/24 07:13 36.8 C 80 16 155/88 H 08/19/24 22:59 08/19/24 21:17 36.9 C 82 16 138/80 08/19/24 20:38 80 19 Pulse Ox O2 Del Method 08/20/24 07:13 95 Room Air 08/19/24 22:59 Room Air 08/19/24 21:17 95 Room Air 08/19/24 20:38 98 Room Air Laboratory Results 08/20/24 07:17 08/20/24 07:22 A1c 8.1 CRP 16.5 [place]cal 0.12 [place] <0.1 B12 pending Diagnostic Findings Foot X-Ray 08/19/24 13:37 XR foot LT min 3V routine HISTORY: 48 years-old Male LEFT GREAT TOE INFECTION COMPARISON: None TECHNIQUE: 3 views of the left great toe FINDINGS: Mild soft tissue swelling of the forefoot. No acute fracture, dislocation, or opaque foreign body or definite osseous erosion. Marginal osteophytic spurring throughout the foot with mild osteoarthritis. Calcaneal enthesophytes are noted, large along the plantar surface. Arterial calcifications. IMPRESSION: Soft tissue swelling without acute osseous abnormality. ACT 112: Negative or not required by law. The above report was generated using voice recognition software. It may contain grammatical, syntax or spelling errors. Electronically signed by: Ivan Luis M.D. 08/19/2024 2:39 PM PG Care Time/CCT Total # of Minutes Spent Total Time Spent with Patient: Total time spent is greater than 50% in coordination of care (as documented) at patient's floor/unit and/or counseling patient: Coding Level of Care Code 57234 SUB INP/OBS CARE 3/50MIN Diagnoses Diabetic foot infection E11.628; L08.9 Gout M10.9 Malignant neoplasm of colon C18.9 Type 2 diabetes mellitus E11.9 PTSD (post-traumatic stress disorder) F43.10 Bipolar 1 disorder F31.9
[2024-08-20 08:28] LABS: Estimated Average Glucose 186 mg/dl; Hemoglobin A1C 8.1 % (4.5-5.6)
[2024-08-20] MEDS: LANTUS PER UNIT CHARGE SC SCH (09:18)
[2024-08-20] MEDS: DEXTROAMPHETAMINE/AMPHETAMINE ER 20 MG CAP PO SCH (09:22)
[2024-08-20 10:07] LABS: Albumin Globulin Ratio 1.1 (0.9-2); Albumin Level 3.6 gm/dl (3.4-5.0); BUN Creatinine Ratio 30.6 (10-20); Bilirubin,Total 0.4 mg/dl (0.2-1.0); C Reactive Protein 16.5 mg/dl (0-0.5); Creatinine Clr Calc Pharmacy 167.4 ml/min; Globulin 3.2 gm/dl (2.5-4.0); Potassium 4.4 mmol/L (3.5-5.1); Total Protein 6.8 gm/dl (6.0-8.3)
[2024-08-20 10:09] LABS: Basophils # (auto) 0.06 K/uL (0.00-0.20); Basophils % (auto) 0.5 %; Eosinophils # (auto) 0.24 K/uL (0.00-0.50); Eosinophils % (auto) 2.2 %; Hematocrit (blood only) 35.7 % (42.0-52.0); Hemoglobin 12.7 g/dl (14.0-18.0); Immature Granulocytes # (auto) 0.04 K/uL (0.01-0.20); Immature Granulocytes % (auto) 0.4 %; Lymphocytes # (auto) 1.48 K/uL (1.20-3.40); Lymphocytes % (auto) 13.5 %; Mean Corpuscular Hemoglobin 33.2 pg (25.0-34.0); Mean Corpuscular Hgb Conc 35.6 g/dL (32.0-36.0); Mean Corpuscular Volume 93.5 fL (80.0-100.0); Mean Platelet Volume 9.5 fL (9.4-12.4); Monocytes # (auto) 1.09 K/uL (0.11-0.59); Neutrophils # (auto) 8.02 K/uL (1.40-6.50); Neutrophils % (auto) 73.4 %; Platelet Count 260 K/uL (130-400); RDW Coefficient of Variation 12.1 % (11.5-14.5); RDW Standard Deviation 41.2 fL (36.4-46.3); Red Blood Count 3.82 M/uL (4.70-6.10); White Blood Count 10.93 K/ul (4.8-10.8)
--- NOTE | 2024-08-20 11:20 | Pharmacy Report ---
Pharmacy Glycemic Short Note 2 - Date of Service August 20, 2024 - Glycemic Short BSG Results (Last 24 hours): 08/19/24 08/19/24 08/20/24 14:08 19:47 07:22 Glucose 270 H 254 H POC Glucose 286 H 08/20/24 07:30 Glucose POC Glucose 249 H OUTPATIENT ANTIDIABETIC REGIMEN: * canagliflozin 300mg PO daily * metformin 2gm PO daily HbA1C: 8.1% ASSESSMENT: * Pt is a 48 year old male admitted with a diabetic foot infection. History of DM2 on PO therapies @ home (Ozempic stopped per report since colon cancer diagnosis). Pharmacy consulted to assist with inpatient glycemic management. * BSGs elevated to 286-249mg/dl since admission. Received 20 units of basal and 8 units of bolus insulin yesterday. * Receiving IV antibiotics and tolerating a diet. Other stressors stable. * Lantus 20 units X 1 last night. Will switch to BID dosing for titration. Novolog moderate stress scale, tightened to 20/6 ACHS. PLAN FOR INPATIENT GLYCEMIC CONTROL: * Hold outpatient oral diabetes medications * Basal insulin * Lantus 13 units SQ BID * Bolus insulin * NovoLog per scale ACHS or Q6hrs while NPO * Goal Range: Low 110 mg/dL - High 140 mg/dL * Correction Factor: 20 mg/dL/unit * Nutritional / Prandial insulin per carb ratio of 1 unit per 6 grams CHO consumed
[2024-08-20 14:36] VITALS: O2SAT 97
[2024-08-20] MEDS: cefTRIAXone SODIUM 2,000 MG/50 ML BAG IV SCH (15:18)
[2024-08-20] MEDS: GABAPENTIN 300 MG CAP PO SCH (16:47)
[2024-08-20 21:42] VITALS: RESP 16; TEMP 97.9
[2024-08-21] MEDS: oxyCODONE HCL IR 5 MG TAB (IMMEDIATE RELEASE) PO PRN (05:49)
[2024-08-21 06:56] LABS: Basophils # (auto) 0.08 K/uL (0.00-0.20); Eosinophils % (auto) 3.7 %; Hematocrit (blood only) 34.6 % (42.0-52.0); Hemoglobin 12.2 g/dl (14.0-18.0); Immature Granulocytes # (auto) 0.05 K/uL (0.01-0.20); Immature Granulocytes % (auto) 0.6 %; Lymphocytes # (auto) 2.35 K/uL (1.20-3.40); Lymphocytes % (auto) 28.8 %; Mean Corpuscular Hgb Conc 35.3 g/dL (32.0-36.0); Mean Corpuscular Volume 93.5 fL (80.0-100.0); Mean Platelet Volume 9.3 fL (9.4-12.4); Monocytes % (auto) 12.3 %; Neutrophils # (auto) 4.38 K/uL (1.40-6.50); Neutrophils % (auto) 53.6 %; Platelet Count 276 K/uL (130-400); RDW Coefficient of Variation 12.1 % (11.5-14.5); RDW Standard Deviation 42.2 fL (36.4-46.3); White Blood Count 8.16 K/ul (4.8-10.8)
[2024-08-21 07:19] VITALS: BP 163/96; PULSE 69
[2024-08-21 07:24] LABS: Albumin Globulin Ratio 1.1 (0.9-2); Albumin Level 3.4 gm/dl (3.4-5.0); BUN Creatinine Ratio 34.8 (10-20); Bilirubin,Total 0.3 mg/dl (0.2-1.0); C Reactive Protein 12.23 mg/dl (0-0.5); Calcium 8.8 mg/dl (8.6-10.3); Globulin 3.2 gm/dl (2.5-4.0); Magnesium 1.7 mg/dl (1.7-2.4); Potassium 4.4 mmol/L (3.5-5.1); Total Protein 6.6 gm/dl (6.0-8.3)
--- NOTE | 2024-08-21 07:53 | Hospitalist Progress Note ---
Date of Service August 21, 2024 Assessment & Plan (1) Diabetic foot infection: Plan: Wound present for past 4-5 months, recently started to notice erythema and edema of the L great toe a 1-2 days ago with associated yellow drainage. - Admit - CBC: WBC 15.10, neutrophil predom., H/H 13.9/38.7 - CMP: Na 132, Cl 96 - Lactate 2.4; pending improved to 1.7 - XR w/ soft tissue swelling without acute osseous abnormality , no evidence for osteo - Blood cx pending - Pending CRP - Given Ceftriaxone + Doxy in ED - Pt is immunocompromised by chemotherapy and has reported yellow drainage from the wound -> Will cover w/ MRSA at this time - Continue ceftriaxone + doxycycline 08/20 WBC 15k--> 10.9k. CRP added and elevated to 16.5 and will trend w/ treatment Continue IV abx : Ceftriaxone/Doxy Continue colchicine 0.6mg BID for suspected superimposed gout (will check level w/ AM labs as well -- 6.0) given significant tenderness out of proportion to exam (reports improving) Continue pain control, elevation-- -reports Toradol effective for pain control Blood cultures pending (port site looks good. Pt already notified his oncology team about rescheduling his chemotherapy) Pain control, elevation. RN to provide w/ surgical shoe to offload pressure when ambulating. Surface cx if occurs (no drainage on exam today, just calloused appearance) A1c 8.1, will need f/u about DM. Educator consult placed Monitor labs/exam in AM, possible dc on Doxy/Cefpodoxime if continued improvement in AM Of note, while xray not noting osteo, does note arterial calcifications. +pulses on exam but discussed with patient if ongoing issues with wound healing should consider arterial studies. 08/21 Ceftriaxone/Doxy continued. Colchicine for possible gout as well Blood cultures remain NGTD. Afebrile. WBC now normal. CRP trending down on repeat. Dr Hayden/orthopedic consult placed to weigh in --> does not feel will need intervention but rec for MRI to ensure no underlying osteo, also wound care about ?possible debridement of callous. Consideration for ABIs (notable patient having great pulses/cap refill, but did note arterial calcifications on xray) (2) Gout: Plan: Reported h/o gout, states that this is not the same pain however having hyperaesthesia and ongoing significant pain despite pain management with mu ltiple medications Not on chronic management w/ allopurinol STARTED COLCHICINE PO BID as above, continued -- continue at or, plan for f/u PCP about allopurinol (3) Malignant neoplasm of colon: Plan: Adenocarcinoma of sigmoid colon diagnosed January of 2024 - Follows with heme/onc; most recent visit 06/11 [facility] - On chemotherapy; last treatment was scheduled for tomorrow 08/20/2024 -- rescheduled as above (4) Type 2 diabetes mellitus: Plan: H/o T2DM, not on insulin At home regimen: Canagliflozin 300mg, metformin 2,000 mg daily, semaglutide (PATIENT REPORTS NOT ON OZEMPIC SINCE DX COLON CA) Home meds on hold, pharmacy consulted for glycemic management A1c WORSE 8.1, as above off ozempic since colon ca diagnosis Insulin 13u BID w/ SSI per pharmacy -- adjustments appreciated for better glyc emic control for wound healing DM educator consulted Will need outpt f/u, ?once daily insluin for better control pending inpatient needs? Elly BSGs (5) PTSD (post-traumatic stress disorder): Plan: Follows with Dr. Chrissie Fox ([facility] in [place]) Mood stable on exam (6) Bipolar 1 disorder: Plan: Follows with above - Divalproex 250mg qHS, [place] carbonate 300mg qHS, bupropion 200mg qAM, hydroxyzine 25mg [place] level <0.1 but no hx seizure and will continue current dose (7) B12 deficiency: Plan: low normal/likely from metformin use, PO replacement started/continue at or planned Plan ADHD- Atomexetine 100 mg, Dextroamphetamine-amphetamine 20mg GERD- Omeprazole 40mg daily HTN- Lisinopril Dispo: continued inpatient stay on IV antibiotics/colchicine. Possible dc on PO DOxy/Cefpodoxime in AM. Consideration for arterial studies if ongoing healing issues. Will need f/u about DM treatment/possible insulin Admission and Anticipated Discharge Date Admission Date: August 19, 2024 Results & Data Results & Data Vital Signs (Past 12 Hours) Vital Signs Temp Pulse Resp BP Pulse Ox O2 Del Method 08/21/24 07:18 36.6 C 69 16 163/96 H 97 Room Air 08/20/24 20:15 36.6 C 84 16 157/83 H 97 Room Air PG Care Time/CCT Total # of Minutes Spent Total Time Spent with Patient: Total time spent is greater than 50% in coordination of care (as documented) at patient's floor/unit and/or counseling patient: Coding Diagnoses Diabetic foot infection E11.628; L08.9 Gout M10.9 Malignant neoplasm of colon C18.9 Type 2 diabetes mellitus E11.9 PTSD (post-traumatic stress disorder) F43.10 Bipolar 1 disorder F31.9 B12 deficiency E53.8
[2024-08-21] MEDS: LANTUS PER UNIT CHARGE SC SCH (08:34)
[2024-08-21] MEDS: CYANOCOBALAMIN (B-12) 500 MCG TABLET PO SCH (08:43)
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
== END 2024-08-21 09:55 | disposition left against medical advice (07) ==
LOC: ED 13:10 → EDINP 17:08 → INTOOBSV 17:08 → SUATTDRO 17:08 → 3W 20:38